=== PATIENT | male | born 1945 | race Caucasian/White ===

== ENCOUNTER 2016-10-24 09:10 | Inpatient (IN) ==
[2016-10-24 09:47] LABS: Basophils % 0.2 % (0.0-0.8); Eosinophils # 0.1 10*3/uL (0.0-0.87); Eosinophils % 1.4 % (0.00-10.9); Hematocrit 19.7 VOL% (42.0-52.0); Immature Granulocytes % 0.6 %; Immature Granulocytes Absolute 0.03 #; Lymphocytes # 1.2 10*3/uL (1.4-4.0); Lymphocytes % 24.7 % (21.2-54.2); Mean Corpuscular HGB Conc 32.5 GM/DL (32-36); Mean Corpuscular Hemoglobin 29 PG (27-34); Mean Corpuscular Volume 88.7 FL (87-102); Mean Platelet Volume 9.6 FL (9.6-12.0); Monocytes # 0.4 10*3/uL (0.11-0.8); Monocytes % 8.6 % (1.7-12.7); NRBC # 0.02 10*3/uL; Neutrophils # 3.2 10*3/uL (1.4-7.4); Neutrophils % 64.5 % (38.7-73.9); Platelet Count 140 T/CUMM (130-400); Red Blood Count 2.22 MC/CUMM (3.8-5.5); Red Cell Distribution Width 13.2 % (9.3-17.3); White Blood Count 4.9 T/CUMM (4-12)
[2016-10-24 09:51] LABS: Hemoglobin 6.4 GM/DL (14.0-18.0)
[2016-10-24 09:56] LABS: INR 1.1; PT Patient Result 11.7 SECS; Partial Thromboplastin Time 22.6 SECS (0-40)
--- NOTE | 2016-10-24 10:01 | XRay Report ---
Exam: XR abdomen 2V Date: 10/24/2016 9:29 AM Indication: Abdominal pain Comparison: None Technical: Supine and erect abdomen Findings: Previous cardiac pacing device with atrial ventricular leads. Lung bases are clear. The liver and spleen shadow are demonstrated there appears be mild prominence of the spleen. The renal shadows are not well seen. Moderate fecal debris in the rectosigmoid colon and right colon. Degenerative change present thoracolumbar spine. Some calcifications are present in the upper abdomen that could be within the region of the adrenal glands or pancreas not otherwise clarified. Vascular plaque in aorta iliac vessels. Impression: 1. Mild constipation 2. Amorphous calcifications could be within the adrenal gland or pancreas not otherwise clarified 3. Vascular calcinosis. 4. Previous cardiac pacing device. If additional imaging is warranted CT of the abdomen pelvis may be beneficial PROCEDURE INTERPRETED AT [facility] DEPARTMENT OF RADIOLOGY Final Report Signed by: Dr. Tarik Stark
--- NOTE | 2016-10-24 10:02 | XRay Report ---
Exam: XR chest 2V Date: 10/24/2016 9:29 AM Indication: Shortness of breath Comparison: 09/26/2015 Technical: PA lateral Findings: Cardiac pacing device and placement left-sided approach with atrial ventricular leads. Previous cervical fusion. ASVD is present. No obvious infiltrate. The mediastinum is otherwise intact. Anterolateral marginal osteophytes are present. Impression: 1. Cardiomegaly without decompensation 2. Stable position of the cardiac pacing device 3. Previous cervical fusion 4. Degenerative spondylosis change thoracic spine 5. No acute cardiopulmonary pathology. PROCEDURE INTERPRETED AT [facility] DEPARTMENT OF RADIOLOGY Final Report Signed by: Dr. Tarik Stark
[2016-10-24 10:18] LABS: Albumin 3.5 G/DL (3.4-5.0); Bilirubin,Total 0.4 MG/DL (0.2-1.0); Calcium 8.6 MG/DL (8.5-10.1); Magnesium 2.2 MG/DL (1.8-2.4); Osmolality,Calculated 290.5 MOS/KG (273-304); Potassium 4.6 MMOL/L (3.5-5.1); Total Protein 6.8 G/DL (6.4-8.3)
--- NOTE | 2016-10-24 10:39 | Emergency Department Note ---
Alina Ratliff Rolonda, am scribing for, and in the presence of, Usman White MD 10: 31. Cindy Ratliff James D, MD, personally performed the services described in this documentation, ascribed by Maura Fuller in my presence, and it is both accurate and complete . Arrival - Arrival Chief Complaint: GI Bleed/Rectal Stated Complaint: Dr. Nguyen sent over ED Nursing Triage Note: Pt c/o dark red blood in his stool with some abd discomfort and dizziness x [address] Nguyen's office. Mode of Arrival: Ambulatory Limitations: No Limitations Source: Patient, Old Records Reviewed, RN Notes Reviewed - History of Present Illness HPI Narrative: Pt is a 71 y/o male who was transferred from Dr. Nguyen presents to the ED with c/o of dark red blood in his stool with an onset of x1 week. He has a PMHx of problems. Pt has associated sxs of abdominal pain and dizziness. Pt denies taking any medication to relieve sxs and denies vomiting and abdominal pain but confirms nausea. No other pain in ED. Onset (ago): week(s) Consistency: constant Severity: moderate Severity scale (1-10): 4 Allergies/Adverse Reactions: Allergies Allergy/AdvReac Type Severity Reaction Status Date / Time Streptomycin Allergy Severe RASH Verified 09/25/15 11:00 codeine Allergy Nausea Verified 10/24/16 09:14 Home Medications: Home Medications Medication Instructions Recorded Confirmed Type Duloxetine HCl [Cymbalta] 60 mg PO DAILY 09/11/15 10/24/16 History Metoprolol Tartrate Tab [Lopressor 50 mg PO BID 09/11/15 10/24/16 History Tab] Canagliflozin [Invokana] 300 mg PO DAILY 10/24/16 10/24/16 History Hydrocodone/Acetaminophen 1 each PO BID PRN 10/24/16 10/24/16 History [Hydrocodon-Acetaminophen 5-325] Insulin Degludec [Tresiba 78 unit SUBCUT DAILY 10/24/16 10/24/16 History Flextouch U-100] Lisinopril 20 mg PO DAILY 10/24/16 10/24/16 History [place]-3/Dha/Epa/Fish Oil [[place]-3 1,000 mg PO TID 10/24/16 10/24/16 History Fish Oil 1,000 mg Sfgl] sitaGLIPtin [Januvia] 100 mg PO DAILY 10/24/16 10/24/16 History Review of System - Review of System 12 point system: reviewed and no additional remarkable complaints except as stated - Review of System Constitutional: Absent: chills Head/Ears/Nose/Throat: Absent: earache, epistaxis Respiratory: Absent: cough, respiratory distress Cardiovascular: Absent: chest pain Gastrointestinal: Present: abdominal pain, nausea. Absent: vomiting Genitourinary male: Present: other (blood in stool) Musculoskeletal: Absent: arm pain, back pain, neck pain Skin: Absent: rash Neurological: Present: vertigo. Absent: headache Medical,Surgical,& Family Hx - Medical History Cardio: History of: Hypertension Psychological: History of: Depression Endocrine: History of: Diabetes Mellitus (NIDDM), Dyslipidemia Respiratory: History of: Respiratory Problems (obstructive sleep apnea and admits noncompliance with CPAP) Genitourinary: History of: Problems Musculoskeletal: History of: Musculoskeletal Problems (arthritis) - Surgical History Abdominal Surgeries: Surgical HX of: Appendectomy Orthopedic Surgeries: Surgical HX of;: Orthopedic Surgery (shoulder surgery, foot surgery, knee surgery), Spinal Surgery (cervical disc disease) - Family History Family History: Reports;: Family Cancer (father of some sort of malignancy. ) Denies;: Family Heart Disease - Social History Smoking Status: Current some day smoker Exam Vital Signs: Vital Signs Temperature 97.0 F L 10/24/16 09:31 Pulse Rate 68 10/24/16 09:31 Respiratory Rate 16 10/24/16 09:31 Blood Pressure 126/41 10/24/16 09:31 O2 Sat by Pulse Oximetry 99 10/24/16 09:12 GENERAL: This is a well-nourished well-developed pale white male in no apparent distress. VITAL SIGNS: Reviewed HEENT: Head is atraumatic and normocephalic. Pupils are equal round react to light. Extraocular movements are intact. Conjunctiva are pale oropharynx is benign with moist mucous membranes. NECK: Neck is soft and supple without tenderness. There are no masses. There is no lymphadenopathy. LUNGS: Lungs are clear to auscultation. Chest rises symmetrically. There is no chest wall tenderness. CV: Heart is regular rate and rhythm without murmurs rubs or gallops. ABDOMEN: Abdomen is soft, nontender to palpation. There are no abdominal abnormal masses palpated. There is no organomegaly. Bowel sounds are present and active. Rectal: Maroon colored stool present in vault. Good rectal tone, no masses. SKIN: Skin is warm and dry. No rash. Pallor EXTREMITIES: Patient has full range of motion without tenderness. There is no pedal edema. NEUROLOGIC: Awake alert and oriented 4. Cranial nerves II through XII are grossly intact. Motor is 5 over 5 in all extremities bilaterally. Course - Consultations Consultation #1: Discussed with hospitalist. Patient will be admitted to their service. Time: 10:38 Results - Labs CBC & BMP: 10/24/16 09:35 10/24/16 09:35 Lab Results: I have reviewed the patients labs - Diagnostic Findings Procedure: Abdominal x-ray: image reviewed by me (Nonspecific gas pattern, no free air, gas in the rectum.), Chest x-ray: image reviewed by me (No cardiomegaly, pacemaker in place with leads in position.) Disposition Clinical Impression: GI bleed, Acute blood loss anemia Case discussed with: patient, patient's family Disposition: Still a Patient Condition: Stable Time of Disposition: 10:41
[2016-10-24] MEDS ORDERED: ACETAMINOPHEN 325 MG TABLET PO PRN (11:43)
[2016-10-24] MEDS ORDERED: ONDANSETRON 4 MG/2 ML VIAL IV PRN (11:43)
[2016-10-24] MEDS ORDERED: guaiFENesin/DM ER 600-30 MG TABLET PO PRN (11:43)
[2016-10-24] MEDS ORDERED: MORPHINE 2 MG/1 ML SYRINGE IV PRN (11:43)
[2016-10-24] MEDS ORDERED: NICOTINE 21 MG/24 HR PATCH TRANSDERM PRN (11:43)
[2016-10-24] MEDS ORDERED: diphenhydrAMINE CAP 25 MG CAPSULE PO PRN (11:43)
[2016-10-24] MEDS ORDERED: PROMETHAZINE 25 MG/1 ML VIAL IM PRN (11:43)
[2016-10-24] MEDS ORDERED: SODIUM CHLORIDE 0.9% 250 ML IV PRN (11:47)
[2016-10-24] MEDS ORDERED: DEXTROSE 50% 25 GM/50 ML VIAL IV PRN (11:49)
[2016-10-24] MEDS ORDERED: GLUCAGON 1 MG VIAL IM PRN (11:49)
--- NOTE | 2016-10-24 11:51 | Hospitalist History & Physical ---
Assessment and Plan - Time spent with patient Time spent with patient: Greater than 30 minutes (1) Acute renal failure Status: Acute Assessment and plan: 71-year-old white male with history of diabetes, hypertension, depression, chronic neck pain admitted by the hospitalist service with GI bleed. Patient will be admitted to the CCU for observation at least overnight by Dr. Ramires. Patient will be given 2 units of blood and consult Dr. Blackwell from gastroenterology for evaluation. Patient will be given IV fluids for his acute renal failure. His last reported creatinine was normal. Will request records from Dr. Cates's office on patient's last scope done in June. Patient's diabetes medications will be held for his hospital stay. He will be placed on sliding scale insulin and blood sugars monitored. Patient has been out of his blood pressure medicine for 2 days and his blood pressures are normal at this time. We will continue to monitor and will add blood pressure medicines back once needed. Dr. Ramires will see and examine patient and further recommendations to follow. Current Visit: Yes (2) Diabetes mellitus Status: Chronic Current Visit: No Qualifiers: Diabetes mellitus type: type 2 (3) Essential hypertension Status: Chronic Current Visit: No (4) Obesity (BMI 30-39.9) Status: Chronic Current Visit: No (5) GI bleed Status: Acute Current Visit: Yes (6) Acute blood loss anemia Status: Acute Current Visit: Yes History of Present Illness Chief complaint: Dark tarry stools History of present illness: Mr. Davis is a 71 year old white male with history of diabetes, hypertension , chronic neck pain, and depression presenting to the ED with a one-week history of dark tarry stools. Patient states the tarry stool started about a week ago and he has 2-3 per day. Patient denies headache, chest pain, shortness of breath, abdominal pain. He admits to having dizziness with ambulation and lower extremity edema. Patient went to see his family physician Dr. Mendoza this morning who sent him to the ED. Patient also states he has been out of his blood pressure medicines for 2 days with a recorded blood pressure in the ED upon exam of 118/63. Patient's H&H is 6.4/19.7 with normal white count and normal platelets. His creatinine is elevated at 1.6, blood sugars 197 , remainder of his chemistries are normal. Patient's coags are within normal limits. Upon exam patient is pale with skin dry, he is not hypotensive or tachycardic at this time and he has no active rectal bleeding. Patient states he had a scope done by Dr. Cates at [place] in June that showed internal hemorrhoids at that time. Patient does have a family history of colon cancer. Patient's case was discussed with ED physician Dr. Whiet and admitting hospitalist Dr. Ramires, and it was agreed patient would be admitted for further evaluation and treatment. Patient's medicines have been reconciled upon admission and patient is a full code. Home Medications Medication Instructions Recorded Confirmed Type Duloxetine HCl [Cymbalta] 60 mg PO DAILY 09/11/15 10/24/16 History Metoprolol Tartrate Tab [Lopressor 50 mg PO BID 09/11/15 10/24/16 History Tab] Canagliflozin [Invokana] 300 mg PO DAILY 10/24/16 10/24/16 History Hydrocodone/Acetaminophen 1 each PO BID PRN 10/24/16 10/24/16 History [Hydrocodon-Acetaminophen 5-325] Insulin Degludec [Tresiba 78 unit SUBCUT DAILY 10/24/16 10/24/16 History Flextouch U-100] Lisinopril 20 mg PO DAILY 10/24/16 10/24/16 History [place]-3/Dha/Epa/Fish Oil [[place]-3 1,000 mg PO TID 10/24/16 10/24/16 History Fish Oil 1,000 mg Sfgl] sitaGLIPtin [Januvia] 100 mg PO DAILY 10/24/16 10/24/16 History Allergies Allergy/AdvReac Type Severity Reaction Status Date / Time Streptomycin Allergy Severe RASH Verified 09/25/15 11:00 codeine Allergy Nausea Verified 10/24/16 09:14 Medical,Surgical,& Family Hx - Medical History Cardio: History of: Hypertension Psychological: History of: Depression Endocrine: History of: Diabetes Mellitus (NIDDM), Dyslipidemia Respiratory: History of: Respiratory Problems (obstructive sleep apnea and admits noncompliance with CPAP) Genitourinary: History of: Problems Musculoskeletal: History of: Musculoskeletal Problems (arthritis) - Surgical History Abdominal Surgeries: Surgical HX of: Appendectomy Orthopedic Surgeries: Surgical HX of;: Orthopedic Surgery (shoulder surgery, foot surgery, knee surgery), Spinal Surgery (cervical disc disease) - Family History Family History: Reports;: Family Cancer (father of some sort of malignancy. ) Denies;: Family Heart Disease - Social History Smoking Status: Current some day smoker Have you smoked in the last 12 months: Yes Frequency of Alcohol Use: None Type of Drug Use: None Marital Status: Lives With:: Spouse Functional capacity: independent ambulation Review of systems: A complete 10 system review of systems was obtained and pertinent positives and negatives per HPI Exam - Constitutional Vitals: Period Temp Pulse Resp BP Sys/[place] Pulse Ox Last 24 Hr 97.0 F-97.0 F 68-68 16-16 126-126/41-41 99 Exam: Constitutional System: No distress. No tremulousness. Head: Normocephalic, atraumatic. Ears, Nose and Throat System: No evidence of Otitis or Mastoiditis. No epistaxis or discharge Eyes System: Pupils equal, round, and reactive. Extraocular muscles intact. Mucous membranes pale Neck: Supple, without adenopathy, No jugular venous distention. No thyromegaly, neck mass, or prior surgery apparent. Respiratory System: Chest clear to auscultation. Cardiovascular System: Heart with regular rate and rhythm. No murmur. GI System: Abdomen soft, nontender. Normo active bowel sounds present. Musculoskeletal System: limbs with 1+ pedal edema. Diminished distal pulses. Neurological System: No discernable sensory deficit. No aphasia Psychiatric System: Conversation is rational Results - Labs CBC & BMP: 10/24/16 09:35 10/24/16 09:35 Lab Results: I have reviewed the past 24 hour labs - EKG EKG results: sinus rhythm - Diagnostic Findings Procedure: Abdominal x-ray: report reviewed by me (Date mild constipation, amorphous calculus calcifications within the adrenal gland or pancreas not otherwise clarified, vascular calcinosis, previous cardiac pacing device), Chest x-ray: report reviewed by me (Cardiomegaly without decompensation, stable cardiac pacing device, previous cervical fusion, degenerative spondylosis change in the thoracic spine.)
[2016-10-24 12:01] LABS: Hematocrit 19.4 VOL% (42.0-52.0)
[2016-10-24] MEDS: PANTOPRAZOLE 40 MG VIAL IV SCH ×2 (12:02→20:23)
[2016-10-24] MEDS: SODIUM CHLORIDE 0.9% 1,000 ML IV SCH ×2 (12:02→23:47)
[2016-10-24] MEDS: DULoxetine 30 MG CAPSULE PO SCH (12:05)
[2016-10-24 12:07] LABS: Hemoglobin 6.4 GM/DL (14.0-18.0)
--- NOTE | 2016-10-24 12:10 | Gastrointestinal Consult Note ---
Assessment and Plan (1) GI bleed Status: Acute Assessment and plan: 10/24-1 week history of dark red blood with clots with daily bowel movements without associated symptoms. 3 day history of dizziness and shortness of breath. Findings at PCP visit of anemia. Most recent colonoscopy at [place] 3 months prior with only findings of internal hemorrhoids. Will request these records. Clear liquid diet. Monitor serial H&H and transfuse as needed. Plan an addendum followed by Dr. Blackwell. Current Visit: Yes History of Present Illness Chief complaint: Rectal bleeding History of present illness: Mr. Davis is a 71 year old male who was admitted to the hospital following clinic visit with Dr. Nguyen for complaints of rectal bleeding, dizziness and shortness of breath. Patient states that approximately 1 week ago he began having some dark red rectal bleeding with clots with his daily bowel movements. He states that his bowel movements have been normal at approximately 1-2 per day with no changes noted in the stool. He states that every time he would have a bowel movement he would pass a moderate amount of blood along with this but denies any bleeding in between bowel movements. He denies any abdominal pain or cramping associated with this. He states that approximately 3 days ago he began not feeling well and complaints of dizziness and some shortness of breath. He presented to see his PCP today and upon exam was found to have anemia and was referred to our ER for further evaluation. Patient states that he has not had GI bleeding in the past. He states that he most recently had a colonoscopy done at [place] by Dr. Cates and does not recall any abnormal findings other than internal hemorrhoids. He denies any recent episodes of constipation or obstipation. He denies any weight loss, nausea or vomiting. Denies any fever chills. Denies a prior history of anemia or blood transfusions in the past. Denies taking any anticoagulants or NSAIDs denies any upper GI symptoms as well. He has a prior history of diabetes, hypertension , chronic neck pain, and depression. He has a family history of colon cancer in his father in the past. On admission, findings of H&H of 6.4/19.4. Normal MCV at 88.7 BUN/creatinine ratio 23. Creatinine is elevated at 1.6 with normal baseline reported. Abdominal x-ray shows no acute findings. Home Medications Medication Instructions Recorded Confirmed Type Duloxetine HCl [Cymbalta] 60 mg PO DAILY 09/11/15 10/24/16 History Metoprolol Tartrate Tab [Lopressor 50 mg PO BID 09/11/15 10/24/16 History Tab] Canagliflozin [Invokana] 300 mg PO DAILY 10/24/16 10/24/16 History Hydrocodone/Acetaminophen 1 each PO BID PRN 10/24/16 10/24/16 History [Hydrocodon-Acetaminophen 5-325] Insulin Degludec [Tresiba 78 unit SUBCUT DAILY 10/24/16 10/24/16 History Flextouch U-100] Lisinopril 20 mg PO DAILY 10/24/16 10/24/16 History [place]-3/Dha/Epa/Fish Oil [[place]-3 1,000 mg PO TID 10/24/16 10/24/16 History Fish Oil 1,000 mg Sfgl] sitaGLIPtin [Januvia] 100 mg PO DAILY 10/24/16 10/24/16 History Allergies Allergy/AdvReac Type Severity Reaction Status Date / Time Streptomycin Allergy Severe RASH Verified 09/25/15 11:00 codeine Allergy Nausea Verified 10/24/16 09:14 Medical,Surgical,& Family Hx - Medical History Cardio: History of: Hypertension Psychological: History of: Depression Endocrine: History of: Diabetes Mellitus (NIDDM), Dyslipidemia Respiratory: History of: Respiratory Problems (obstructive sleep apnea and admits noncompliance with CPAP) Genitourinary: History of: Problems Musculoskeletal: History of: Musculoskeletal Problems (arthritis) - Surgical History Abdominal Surgeries: Surgical HX of: Appendectomy Orthopedic Surgeries: Surgical HX of;: Orthopedic Surgery (shoulder surgery, foot surgery, knee surgery), Spinal Surgery (cervical disc disease) - Family History Family History: Reports;: Family Cancer (father of some sort of malignancy. ) Denies;: Family Heart Disease - Social History Smoking Status: Current some day smoker Frequency of Alcohol Use: None Type of Drug Use: None 12 point system: reviewed and no additional remarkable complaints except as stated - Constitutional Constitutional: Present: as per HPI, fatigue - EENT Eyes: Present: as per HPI Ears: Present: as per HPI Nose, mouth and throat: Present: as per HPI - Cardiovascular Cardiovascular: Present: as per HPI - Respiratory Respiratory: Present: as per HPI - Gastrointestinal Gastrointestinal: Present: as per HPI, hematochezia - Genitourinary Genitourinary: Present: as per HPI - Musculoskeletal Musculoskeletal: Present: as per HPI - Neurological Neurological: Present: as per HPI, dizziness - Psychiatric Psychiatric: Present: as per HPI - Endocrine Endocrine: Present: as per HPI - Hematologic/Lymphatic Hematologic/Lymphatic: Present: as per HPI Exam - Constitutional Vitals: Period Temp Pulse Resp BP Sys/[place] Pulse Ox Last 24 Hr 97.0 F-97.0 F 68-68 16-16 126-126/41-41 99 General appearance: normal weight, no acute distress - Head Head exam: Present: normal inspection, normocephalic - Eye Eye exam: Present: other (Lids and conjunctive are unremarkable). Absent: scleral icterus - ENT ENT exam: Present: normal exam, normal oropharynx - Neck Neck exam: Present: normal inspection - Respiratory Respiratory exam: Present: clear to auscultation bilaterally. Absent: rales, rhonchi, wheezes - Cardiovascular Cardiovascular exam: Present: regular rate and rhythm. Absent: diastolic murmur , JVD, systolic murmur - GI/Abdominal GI/Abdominal exam: Present: normal bowel sounds, soft. Absent: ascites, distended, mass, organomegaly, tenderness - Extremities Exam Extremities exam: Present: normal inspection, full ROM - Back Exam Back exam: Present: normal inspection - Neurological Exam Neurological exam: Present: alert, oriented X3 - Psychiatric Psychiatric exam: Present: normal affect, normal mood - Skin Skin exam: Present: normal color, warm, dry Results - Labs CBC & BMP: 10/24/16 09:35 10/24/16 09:35 Lab Results: I have reviewed the past 24 hour labs - Diagnostic Findings Procedure: Abdominal x-ray: report reviewed by me Quality Measures - VTE Contraindication to Pharmacological VTE Prophylaxis: High Risk of Bleeding
--- NOTE | 2016-10-24 12:22 | EKG Report ---
Stationary ECG Study [facility] Test Date: 10/24/2016 12:22:43 PM Pat Name: TENISHA AMADOR Department: Room: 123 Gender: M Global Chief Creative Officer: NGUYỄN : 1945 Requested by: Nancy Larson Order Number: [id number] Reading MD: SAMARIA TURNER Intervals [place] Rate: 60 P: 100 MI: 184 QRS: -72 QRSD: 166 T: 66 QT: 476 QTc: 476 Interpretive Statements ELECTRONIC ATRIAL PACEMAKER ELECTRONIC VENTRICULAR PACEMAKER ABNORMAL RHYTHM ECG Electronically Signed On 10-24-16 13:08:57 CDT by SAMARIA TURNER [id number]
[2016-10-24] MEDS: INSULIN LISPRO 100 UNIT/ML SUBCUT SCH ×2 (17:05→20:23)
[2016-10-24 19:43] LABS: Hematocrit 21.2 VOL% (42.0-52.0); Hemoglobin 6.9 GM/DL (14.0-18.0)
[2016-10-24] MEDS: ACETAMINOPHEN 325 MG TABLET PO PRN (20:24)
[2016-10-25] MEDS: SODIUM CHLORIDE 0.9% 1,000 ML IV SCH (03:29)
[2016-10-25 05:17] LABS: Eosinophils % 0.9 % (0.00-10.9); Hematocrit 19.8 VOL% (42.0-52.0); Hemoglobin 6.6 GM/DL (14.0-18.0); Immature Granulocytes % 0.4 %; Immature Granulocytes Absolute 0.01 #; Lymphocytes # 0.6 10*3/uL (1.4-4.0); Lymphocytes % 28.2 % (21.2-54.2); Mean Corpuscular HGB Conc 33.3 GM/DL (32-36); Mean Corpuscular Hemoglobin 29 PG (27-34); Mean Corpuscular Volume 87.6 FL (87-102); Mean Platelet Volume 10.9 FL (9.6-12.0); Monocytes # 0.2 10*3/uL (0.11-0.8); Monocytes % 8.4 % (1.7-12.7); Neutrophils # 1.4 10*3/uL (1.4-7.4); Neutrophils % 62.1 % (38.7-73.9); Platelet Count 52 T/CUMM (130-400); Red Blood Count 2.26 MC/CUMM (3.8-5.5); Red Cell Distribution Width 13.3 % (9.3-17.3); White Blood Count 2.3 T/CUMM (4-12)
[2016-10-25 05:25] LABS: INR 1.1; PT Patient Result 12.1 SECS; Partial Thromboplastin Time < 21.0 SECS (0-40)
[2016-10-25 05:55] LABS: Albumin 2.9 G/DL (3.4-5.0); Bilirubin,Total 1.1 MG/DL (0.2-1.0); Calcium 7.7 MG/DL (8.5-10.1); Magnesium 2.1 MG/DL (1.8-2.4); Osmolality,Calculated 284.3 MOS/KG (273-304); Potassium 4.2 MMOL/L (3.5-5.1); Total Protein 5.9 G/DL (6.4-8.3)
[2016-10-25 05:57] LABS: Band Neutrophils 1 % (0-10); Eosinophils 1 % (0-10); Hypochromasia 1+; Lymphocytes 27 % (20-55); Nucleated Red Blood Cells 1 (0-5); Ovalocytes Slight; Segmented Neutrophils 66 % (50-85); Total Cells Counted 100
[2016-10-25 05:58] LABS: Platelet Estimate Decreased
--- NOTE | 2016-10-25 07:44 | EKG Report ---
Stationary ECG Study [facility] Test Date: 10/25/2016 7:45:14 AM Pat Name: TENISHA AMADOR Department: Room: 123 Gender: M Epic [place] Specialist: ANGELES : 1945 Requested by: Nancy Larson Order Number: [id number] Reading MD: SUKHWINDER XIONG Intervals [place] Rate: 62 P: 75 WA: 177 QRS: -77 QRSD: 182 T: 88 QT: 508 QTc: 514 Interpretive Statements ELECTRONIC VENTRICULAR PACEMAKER (APPEARS TO BE TRACKING SINUS RHYTHM) @62BPM Electronically Signed On 10-25-16 10:06:05 CDT by SUKHWINDER XIONG [email or web address]
[2016-10-25] MEDS: INSULIN LISPRO 100 UNIT/ML SUBCUT SCH ×4 (07:49→22:17)
[2016-10-25] MEDS ORDERED: FUROSEMIDE 40 MG/4 ML VIAL IV ONE (07:50)
[2016-10-25 08:05] LABS: Hematocrit 21.3 VOL% (42.0-52.0); Hemoglobin 7.1 GM/DL (14.0-18.0)
[2016-10-25] MEDS: PANTOPRAZOLE 40 MG VIAL IV SCH ×2 (08:33→22:19)
[2016-10-25] MEDS: DULoxetine 30 MG CAPSULE PO SCH (08:46)
--- NOTE | 2016-10-25 10:11 | Gastrointestinal Progress Note ---
Assessment and Plan (1) GI bleed Status: Acute Assessment and plan: 10/25-no further overt bleeding. Hemoglobin posttransfusion yesterday at 7.1. Receiving 2 more units of packed red blood cells. Continue to monitor H&H and transfuse as needed. Advance to full liquid diet. Plan an addendum follow Dr. Blackwell. 10/24-1 week history of dark red blood with clots with daily bowel movements without associated symptoms. 3 day history of dizziness and shortness of breath. Findings at PCP visit of anemia. Most recent colonoscopy at [place] 3 months prior with only findings of internal hemorrhoids. Will request these records. Clear liquid diet. Monitor serial H&H and transfuse as needed. Plan an addendum followed by Dr. Blackwell. Current Visit: Yes Gastroenterology - PN: Subj Interval history: CC: GI bleed Patient is awake and alert sitting up in bed with at bedside. He was just transferred to a regular room from ICU. He states he has not had any overt bleeding since admission. Denies any abdominal pain, nausea or vomiting. Hemoglobin is noted to be at 7.1 today following 2 units of packed red blood cells on yesterday. He is receiving 2 more units today. Abdomen soft, nontender. Will advance his diet today and see how he tolerates this. ROS: Denies shortness of breath or chest pain Exam (Progress Note) - Constitutional Vitals: Period Temp Pulse Resp BP Sys/[place] Pulse Ox Last 24 Hr 96.8 F-98.0 F 60-69 13-30 102-151/46-67 90-100 - Other Additional findings: General appearance: normal weight, no acute distress - Head Head exam: Present: normal inspection, normocephalic - Eye Eye exam: Present: other (Lids and conjunctive are unremarkable). Absent: scleral icterus - ENT ENT exam: Present: normal exam, normal oropharynx - Neck Neck exam: Present: normal inspection - Respiratory Respiratory exam: Present: clear to auscultation bilaterally. Absent: rales, rhonchi, wheezes - Cardiovascular Cardiovascular exam: Present: regular rate and rhythm. Absent: diastolic murmur , JVD, systolic murmur - GI/Abdominal GI/Abdominal exam: Present: normal bowel sounds, soft. Absent: ascites, distended, mass, organomegaly, tenderness - Extremities Exam Extremities exam: Present: normal inspection, full ROM - Back Exam Back exam: Present: normal inspection - Neurological Exam Neurological exam: Present: alert, oriented X3 - Psychiatric Psychiatric exam: Present: normal affect, normal mood - Skin Skin exam: Present: normal color, warm, dry Results - Labs CBC & BMP: 10/25/16 07:59 10/25/16 05:01 Lab Results: I have reviewed the past 24 hour labs
--- NOTE | 2016-10-25 11:43 | Hospitalist Progress Note ---
Assessment and Plan (1) Acute blood loss anemia Status: Acute Assessment and plan: GIB- no improvement in H&H with transfusion and today his platelets are also low. Transfuse PRBC and platelets. He is feeling better. Await GI recs. Yesterday DR Blackwell suggested he might have a diverticular bleed after reviewing the Cscope report from [facility]. pancytopenia- consult heme. DM- SSI obesity HTN- controlled, holding meds for now. dispo- to floor today. Current Visit: Yes (2) Diabetes mellitus Status: Chronic Current Visit: No Qualifiers: Diabetes mellitus type: type 2 (3) Essential hypertension Status: Chronic Current Visit: No (4) Obesity (BMI 30-39.9) Status: Chronic Current Visit: No (5) Smoker Status: Chronic Current Visit: No (6) Obstructive sleep apnea Status: Chronic Current Visit: No Hospitalist: Subjective Interval history: Mr Davis is feeling well this morning. He has not seen anymore bleeding. When Dr Blackwell got his history he said his stool had been dark red or maroon, not black or tarry and so Dr Blackwell suspects a lower GIB. Exam - Constitutional Vitals: Period Temp Pulse Resp BP Sys/[place] Pulse Ox Last 24 Hr 96.8 F-98.0 F 60-69 13-30 102-151/46-67 90-100 General appearance: no acute distress, over weight - Eye Eye exam: Present: EOMI. Absent: scleral icterus - Respiratory Respiratory exam: Present: clear to auscultation bilaterally - Cardiovascular Cardiovascular exam: Present: regular rate and rhythm - GI/Abdominal GI/Abdominal exam: Present: normal bowel sounds, soft. Absent: tenderness - Extremities Exam Extremities exam: Absent: edema Results - Labs CBC & BMP: 10/25/16 07:59 10/25/16 05:01 Lab Results: I have reviewed the past 24 hour labs Quality Measures - VTE Contraindication to Pharmacological VTE Prophylaxis: High Risk of Bleeding
[2016-10-25] MEDS: ACETAMINOPHEN 325 MG TABLET PO PRN (14:10)
--- NOTE | 2016-10-25 17:46 | Hematology Consult ---
History of Present Illness - Consult Narrative History of present illness: Mr. Davis is a 71 year old male long-standing thrombocytopenia who has seen in clinic and following with observation only. He was admitted now with GI bleed. GI is evaluating him and plans to do endoscopy. He has required 2 units of blood and is receiving 2 more units today due to persistent bleeding. His CBC today made a dramatic change from yesterday. This was not repeated. Hematology has been asked to see him for our opinion. There is mention of platelet clumping on his CBC. This could very well explain his low platelet count. At this point I will hold off on any further opinion until his CBC is repeated after his transfusion today. I will recheck in the morning to see what his follow-up CBC shows. CC: Radha Ramires MD - Home Medications and Allergies Home Medications: Home Medications Medication Instructions Recorded Confirmed Type Duloxetine HCl [Cymbalta] 60 mg PO DAILY 09/11/15 10/24/16 History Metoprolol Tartrate Tab [Lopressor 50 mg PO BID 09/11/15 10/24/16 History Tab] Canagliflozin [Invokana] 300 mg PO DAILY 10/24/16 10/24/16 History Hydrocodone/Acetaminophen 1 each PO BID PRN 10/24/16 10/24/16 History [Hydrocodon-Acetaminophen 5-325] Insulin Degludec [Tresiba 78 unit SUBCUT DAILY 10/24/16 10/24/16 History Flextouch U-100] Lisinopril 20 mg PO DAILY 10/24/16 10/24/16 History [place]-3/Dha/Epa/Fish Oil [[place]-3 1,000 mg PO TID 10/24/16 10/24/16 History Fish Oil 1,000 mg Sfgl] sitaGLIPtin [Januvia] 100 mg PO DAILY 10/24/16 10/24/16 History Allergies/Adverse Reactions: Allergies Allergy/AdvReac Type Severity Reaction Status Date / Time Streptomycin Allergy Severe RASH Verified 09/25/15 11:00 codeine Allergy Nausea Verified 10/24/16 09:14 Medical,Surgical,& Family Hx - Medical History Cardio: History of: Hypertension, Pacemaker Psychological: History of: Depression HEENT: History of: Ear Problem (Bilateral hearing aids), Eye Problem (Glasses) Endocrine: History of: Diabetes Mellitus (IDDM), Diabetes Mellitus (NIDDM), Dyslipidemia Respiratory: History of: Obstructive Sleep Apnea (CPAP at night), Respiratory Problems (obstructive sleep apnea and admits noncompliance with CPAP) Genitourinary: History of: Problems Musculoskeletal: History of: Musculoskeletal Problems (arthritis) - Surgical History HEENT Surgeries: Patient denies: Tonsilectomy & Adenoidectomy Abdominal Surgeries: Surgical HX of: Appendectomy Orthopedic Surgeries: Surgical HX of;: Orthopedic Surgery (shoulder surgery, foot surgery, knee surgery), Spinal Surgery (cervical disc disease) - Family History Family History: Reports;: Family Cancer (father of some sort of malignancy. ) Denies;: Family Heart Disease - Social History Smoking Status: Current some day smoker Frequency of Alcohol Use: None Type of Drug Use: None Exam - Constitutional Vitals: Period Temp Pulse Resp BP Sys/[place] Pulse Ox Last 24 Hr 96.8 F-98.2 F 60-78 13-30 96-151/46-83 90-100 Results - Labs CBC & BMP: 10/25/16 07:59 10/25/16 05:01 Quality Measures - VTE Contraindication to Pharmacological VTE Prophylaxis: High Risk of Bleeding
[2016-10-25] MEDS ORDERED: POLYETHYLENE GLYCOL POWDER 255 GM BOTTLE PO ONE (18:00)
[2016-10-26 00:14] LABS: Hematocrit 26.8 VOL% (42.0-52.0)
[2016-10-26 05:14] LABS: Basophils % 0.8 % (0.0-0.8); Eosinophils # 0.1 10*3/uL (0.0-0.87); Eosinophils % 2.9 % (0.00-10.9); Hemoglobin 8.9 GM/DL (14.0-18.0); Immature Granulocytes % 0.4 %; Immature Granulocytes Absolute 0.01 #; Lymphocytes # 0.7 10*3/uL (1.4-4.0); Lymphocytes % 29.7 % (21.2-54.2); Mean Corpuscular Hemoglobin 28 PG (27-34); Mean Corpuscular Volume 85.7 FL (87-102); Mean Platelet Volume 9.4 FL (9.6-12.0); Monocytes # 0.3 10*3/uL (0.11-0.8); Monocytes % 11.3 % (1.7-12.7); Neutrophils # 1.3 10*3/uL (1.4-7.4); Neutrophils % 54.9 % (38.7-73.9); Platelet Count 105 T/CUMM (130-400); Red Blood Count 3.15 MC/CUMM (3.8-5.5); Red Cell Distribution Width 13.8 % (9.3-17.3); White Blood Count 2.4 T/CUMM (4-12)
[2016-10-26 05:32] LABS: INR 1.1; PT Patient Result 12.2 SECS
[2016-10-26 05:44] LABS: Calcium 7.8 MG/DL (8.5-10.1); Osmolality,Calculated 283.1 MOS/KG (273-304); Potassium 3.5 MMOL/L (3.5-5.1)
[2016-10-26] MEDS ORDERED: MAGNESIUM CITRATE 300 ML BOTTLE PO ONE (06:00)
[2016-10-26] MEDS ORDERED: PROPOFOL 200 MG/20 ML VIAL IV ONE (06:30)
[2016-10-26] MEDS ORDERED: LIDOCAINE 100 MG/5 ML SYRINGE ONE (06:30)
[2016-10-26 07:03] LABS: Hematocrit 31.3 VOL% (42.0-52.0); Hemoglobin 10.4 GM/DL (14.0-18.0)
--- NOTE | 2016-10-26 08:15 | Hematology Consult ---
Assessment and Plan - Time spent with patient Time spent with patient: Greater than 30 minutes (1) Pancytopenia Status: Acute Current Visit: No (2) Acute blood loss anemia Status: Acute Current Visit: Yes (3) GI bleed Status: Acute Current Visit: Yes History of Present Illness - Consult Narrative History of present illness: Mr. Davis is a 71 year old male who has seen in the past for thrombocytopenia that appears stable for the last 2 years. He was admitted at this point for what looks like a GI bleed. He has been transfused 4 units of blood and 1 unit of platelets. His platelet count this morning is 105. He does have low-grade leukopenia. We do not see evidence of blast or dysplasia on his peripheral smear. His long-standing pancytopenia may be related to some low-grade myelodysplasia or splenomegaly. At this point in time his GI bleed is his biggest issue. I do not have a strong reason for a bone marrow biopsy at this time but could consider that down the road if he remains pancytopenic after his current GI bleed resolves. CC: Donna Cook MD - Home Medications and Allergies Home Medications: Home Medications Medication Instructions Recorded Confirmed Type Duloxetine HCl [Cymbalta] 60 mg PO DAILY 09/11/15 10/24/16 History Metoprolol Tartrate Tab [Lopressor 50 mg PO BID 09/11/15 10/24/16 History Tab] Canagliflozin [Invokana] 300 mg PO DAILY 10/24/16 10/24/16 History Hydrocodone/Acetaminophen 1 each PO BID PRN 10/24/16 10/24/16 History [Hydrocodon-Acetaminophen 5-325] Insulin Degludec [Tresiba 78 unit SUBCUT DAILY 10/24/16 10/24/16 History Flextouch U-100] Lisinopril 20 mg PO DAILY 10/24/16 10/24/16 History [place]-3/Dha/Epa/Fish Oil [[place]-3 1,000 mg PO TID 10/24/16 10/24/16 History Fish Oil 1,000 mg Sfgl] sitaGLIPtin [Januvia] 100 mg PO DAILY 10/24/16 10/24/16 History Allergies/Adverse Reactions: Allergies Allergy/AdvReac Type Severity Reaction Status Date / Time Streptomycin Allergy Severe RASH Verified 09/25/15 11:00 codeine Allergy Nausea Verified 10/24/16 09:14 Medical,Surgical,& Family Hx - Medical History Cardio: History of: Hypertension, Pacemaker Psychological: History of: Depression HEENT: History of: Ear Problem (Bilateral hearing aids), Eye Problem (Glasses) Endocrine: History of: Diabetes Mellitus (IDDM), Diabetes Mellitus (NIDDM), Dyslipidemia Respiratory: History of: Obstructive Sleep Apnea (CPAP at night), Respiratory Problems (obstructive sleep apnea and admits noncompliance with CPAP) Genitourinary: History of: Problems Musculoskeletal: History of: Musculoskeletal Problems (arthritis) - Surgical History HEENT Surgeries: Patient denies: Tonsilectomy & Adenoidectomy Abdominal Surgeries: Surgical HX of: Appendectomy Orthopedic Surgeries: Surgical HX of;: Orthopedic Surgery (shoulder surgery, foot surgery, knee surgery), Spinal Surgery (cervical disc disease) - Family History Family History: Reports;: Family Cancer (father of some sort of malignancy. ) Denies;: Family Heart Disease - Social History Smoking Status: Current some day smoker Frequency of Alcohol Use: None Type of Drug Use: None 12 point system: reviewed and no additional remarkable complaints except as stated - Constitutional Constitutional: Present: fatigue Exam - Constitutional Vitals: Period Temp Pulse Resp BP Sys/[place] Pulse Ox Last 24 Hr 96.8 F-98.8 F 62-78 18-67 96-153/51-83 97-100 General appearance: normal weight, no acute distress - Head Head Exam: Present: normocephalic, atraumatic - Eye Eye Exam: Present: EOMI Pupils: Present: PERRL - ENT ENT exam: Present: normal exam, normal oropharynx - Neck Neck exam: Absent: lymphadenopathy, thyromegaly - Respiratory Respiratory exam: Present: CTAB. Absent: wheezes - Cardiovascular Cardiovascular exam: Present: RRR. Absent: JVD, systolic murmur - GI/Abdominal GI/Abdominal exam: Present: soft. Absent: ascites, distended, firm, mass - Neurological Exam Neurological exam: Present: alert, oriented X3 - Psychiatric Psychiatric exam: Present: normal affect, normal mood - Skin Skin exam: Present: warm, dry Results - Labs CBC & BMP: 10/26/16 06:56 10/26/16 04:36 Lab Results: I have reviewed the past 24 hour labs Quality Measures - VTE Contraindication to Pharmacological VTE Prophylaxis: High Risk of Bleeding
[2016-10-26] MEDS: INSULIN LISPRO 100 UNIT/ML SUBCUT SCH ×4 (09:01→22:10)
[2016-10-26] MEDS: DULoxetine 30 MG CAPSULE PO SCH (09:01)
[2016-10-26] MEDS: PANTOPRAZOLE 40 MG VIAL IV SCH ×2 (09:02→22:10)
--- NOTE | 2016-10-26 12:34 | History and Physical Update ---
History and Physical Update - History and Physical H&P was reviewed, the patient examined and there: are no changes in the patients condition since last H&P was completed. - Physical Exam Mental Status: alert and oriented Heart: regular rate and rhythm Lung: clear to auscultation Abdomen: within normal limits Vitals: within normal limits
[2016-10-26] MEDS ORDERED: SIMETHICONE DROPS 40 MG/0.6 ML 30 ML BOTTLE ONE (12:55)
--- NOTE | 2016-10-26 12:56 | Hospitalist Progress Note ---
Assessment and Plan (1) Diabetes mellitus Status: Chronic Assessment and plan: SSI Current Visit: No Qualifiers: Diabetes mellitus type: type 2 (2) Essential hypertension Status: Chronic Assessment and plan: Holding home meds Current Visit: No (3) Obstructive sleep apnea Status: Chronic Current Visit: No (4) Pancytopenia Status: Acute Assessment and plan: Anemia due to blood loss Thrombocytopenia is chronic, followed by hematology, improved with platelet transfusion Current Visit: No (5) GI bleed Status: Acute Assessment and plan: GI managing Colonoscopy today H/H stable Current Visit: Yes (6) Acute blood loss anemia Status: Acute Current Visit: Yes Hospitalist: Subjective Interval history: No acute events overnight. Underwent bowel prep overnight. Plan for colonoscopy today. Exam - Constitutional Vitals: Period Temp Pulse Resp BP Sys/[place] Pulse Ox Last 24 Hr 97.4 F-98.8 F 61-78 16-67 96-160/53-062 98-100 General appearance: over weight - Head Head exam: Present: normocephalic, atraumatic - Eye Eye exam: Present: EOMI Pupils: Present: DEE - ENT ENT exam: Present: normal exam - Neck Neck exam: Present: normal inspection - Respiratory Respiratory exam: Present: clear to auscultation bilaterally. Absent: rhonchi, wheezes - Cardiovascular Cardiovascular exam: Present: regular rate and rhythm - GI/Abdominal GI/Abdominal exam: Present: normal bowel sounds, soft. Absent: tenderness, rebound - Extremities Exam Extremities exam: Present: normal inspection - Back Exam Back exam: Present: normal inspection - Neurological Exam Neurological exam: Present: alert, oriented X3 - Psychiatric Psychiatric exam: Present: normal affect, normal mood - Skin Skin exam: Present: warm, intact Results - Labs CBC & BMP: 10/26/16 06:56 10/26/16 04:36 Quality Measures - VTE Contraindication to Pharmacological VTE Prophylaxis: High Risk of Bleeding
--- NOTE | 2016-10-26 13:24 | Operative Note ---
Date of procedure: 10/26/16 Pre-op diagnosis: Lower GI bleeding Procedure: Procedure note: Colonoscopy with snare polypectomy polyps and argon coagulation of right colon vascular malformations Physician: Dr. Moy Blackwell Brief clinical abstract: 71-year-old male was admitted with lower GI bleeding. He has required transfusion of 2 units packed red blood cells. He has bled sporadically for the last 4 or 5 days with dark red hematochezia and some bright red blood noted. Endoscopic findings: After informed consent was obtained, the patient was placed in the left lateral decubitus position. Digital rectal exam was performed with no palpable abnormalities felt. Pediatric videocolonoscope was inserted into the rectum and advanced to the cecum without difficulty. Retroflex view within the cecum was performed back to the level of the hepatic flexure. The endoscope was advanced back to the cecum. Terminal ileum was examined in the distal 8-10 cm with no abnormality seen. The endoscope was withdrawn back into the cecum and colonic mucosa carefully examined on withdrawal. There was a moderate sized dark red clot in the base of the cecum noted which I was able to suction and removed. No bright red blood was noted. In the proximal ascending colon there were 4 vascular malformations noted, each ranging in size from 7-10 mm diameter. These were coagulated with argon plasma coagulation device on right colon setting. We appeared to have good endoscopic results. 1 of these oozed some bright red blood with coagulation which stopped. Distal to this vascular pattern throughout the remainder the colon appeared normal. Bowel prep was of fairly good quality with some dark liquid watery stool in the left colon which we were mostly able to clear by suctioning. 2 approximately 5 mm polyps were noted in the mid to distal transverse colon and removed with snare using coagulation current. A moderate number of diverticuli were visualized in the descending and sigmoid colon. The endoscope was withdrawn in the rectum with retroflex view showing prominent vascularity in the distal 5 cm of the rectum with moderate sized hemorrhoids which could be varices. No bleeding stigmata were associated with these. The endoscope was removed and patient appeared to tolerate the procedure well. 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 Rectal varices Plan: Would observe another 48 hours to observe for signs of recurrent bleeding. F F F F Anesthesia: MAC Surgeon / Physician: Tarik Blackwell Estimated blood loss: minimal Specimens: other (Transverse colon polyps) Condition: stable Disposition: post procedure unit Results - Labs CBC & BMP: 10/26/16 06:56 10/26/16 04:36 Discharge Plan - Discharge Medications No Action Metoprolol Tartrate Tab [Lopressor Tab] 50 mg PO BID Duloxetine HCl [Cymbalta] 60 mg PO DAILY sitaGLIPtin [Januvia] 100 mg PO DAILY Canagliflozin [Invokana] 300 mg PO DAILY [place]-3/Dha/Epa/Fish Oil [[place]-3 Fish Oil 1,000 mg Sfgl] 1,000 mg PO TID Hydrocodone/Acetaminophen [Hydrocodon-Acetaminophen 5-325] 1 each PO BID PRN PRN Reason: Pain Lisinopril 20 mg PO DAILY Insulin Degludec [Tresiba Flextouch U-100] 78 unit SUBCUT DAILY - Follow Up or Referral - Forms/Instructions
--- NOTE | 2016-10-26 13:26 | Anesthesia Post-Op ---
Anesthesia Post OP - Post Ansesthetic Evaluation Patient seen in post op: Yes Resp: within normal limits CV: within normal limits Mental: within normal limits Temp: within normal limits [id number]: within normal limits Nausea and Vomiting: within normal limits Pain: within normal limits
[2016-10-26 15:27] LABS: Hematocrit 28.7 VOL% (42.0-52.0); Hemoglobin 9.6 GM/DL (14.0-18.0)
[2016-10-26 21:52] LABS: Hematocrit 27.4 VOL% (42.0-52.0); Hemoglobin 8.9 GM/DL (14.0-18.0)
[2016-10-27 06:36] LABS: Basophils % 0.7 % (0.0-0.8); Eosinophils # 0.1 10*3/uL (0.0-0.87); Eosinophils % 3.2 % (0.00-10.9); Hematocrit 26.7 VOL% (42.0-52.0); Hemoglobin 8.7 GM/DL (14.0-18.0); Immature Granulocytes % 0.4 %; Immature Granulocytes Absolute 0.01 #; Lymphocytes # 0.9 10*3/uL (1.4-4.0); Mean Corpuscular HGB Conc 32.6 GM/DL (32-36); Mean Corpuscular Hemoglobin 28 PG (27-34); Mean Corpuscular Volume 86.4 FL (87-102); Mean Platelet Volume 10.2 FL (9.6-12.0); Monocytes # 0.4 10*3/uL (0.11-0.8); Neutrophils # 1.4 10*3/uL (1.4-7.4); Neutrophils % 48.7 % (38.7-73.9); Platelet Count 107 T/CUMM (130-400); Red Blood Count 3.09 MC/CUMM (3.8-5.5); Red Cell Distribution Width 13.7 % (9.3-17.3); White Blood Count 2.8 T/CUMM (4-12)
[2016-10-27 06:44] LABS: INR 1.2; PT Patient Result 12.5 SECS
[2016-10-27 06:56] LABS: Hypochromasia 1+
[2016-10-27 06:57] LABS: Microcytosis Slight; Platelet Estimate Decreased
[2016-10-27 07:21] LABS: Hematocrit 25.5 VOL% (42.0-52.0); Hemoglobin 8.5 GM/DL (14.0-18.0)
[2016-10-27] MEDS: INSULIN LISPRO 100 UNIT/ML SUBCUT SCH ×5 (07:25→21:38)
[2016-10-27] MEDS: DULoxetine 30 MG CAPSULE PO SCH (08:59)
[2016-10-27] MEDS: PANTOPRAZOLE 40 MG VIAL IV SCH ×2 (09:00→21:39)
--- NOTE | 2016-10-27 12:30 | Pathology Report from [facility] ---
[facility] ACCESSION # : [id number] PATIENT NAME : Tenisha Davis ORDERING DR : JOLIE BARBOUR MD CLINICAL HX: GI Bleed POST-OP DX: Colon polyp transverse x 2 SPECIMEN INFO: Colon polyp transverse x 2 GROSS DESCRIPTION: Received in formalin labeled TENISHA DAVIS is a 0.6 x 0.4 cm aggregate of soft hemorrhagic material submitted in one cassette. DIAGNOSIS FOR TEINSHA DAVIS: TRANSVERSE COLON, BIOPSY: Mucosal ulceration with granulation tissue. COLLECTED DATE: 10/26/2016 [facility] REPORT DATE: 10/27/2016 ELECTRONICALLY SIGNED BY: Dev Abebe III, M.D. 10/27/2016 - 10:51:42 [facility]D
[2016-10-27 15:22] LABS: Hematocrit 29.6 VOL% (42.0-52.0); Hemoglobin 9.7 GM/DL (14.0-18.0)
--- NOTE | 2016-10-27 16:24 | Hospitalist Progress Note ---
Assessment and Plan (1) Diabetes mellitus Status: Chronic Assessment and plan: SSI Current Visit: No Qualifiers: Diabetes mellitus type: type 2 (2) Essential hypertension Status: Chronic Assessment and plan: Holding home meds Current Visit: No (3) Obstructive sleep apnea Status: Chronic Current Visit: No (4) Pancytopenia Status: Acute Assessment and plan: Anemia due to blood loss Thrombocytopenia is chronic, followed by hematology, improved with platelet transfusion Current Visit: No (5) GI bleed Status: Acute Assessment and plan: GI managing Colonoscopy yesterday, with right colon vascular malformations, likely source of bleeding H/H stable Current Visit: Yes (6) Acute blood loss anemia Status: Acute Current Visit: Yes Hospitalist: Subjective Interval history: No acute events overnight. No repeat episodes of bleeding. H/H remains stable. If still stable tomorrow, will discharge. Exam - Constitutional Vitals: Period Temp Pulse Resp BP Sys/[place] Pulse Ox Last 24 Hr 97.6 F-98.9 F 60-81 18-20 122-147/45-65 95-100 General appearance: over weight - Head Head exam: Present: normocephalic, atraumatic - Eye Eye exam: Present: EOMI Pupils: Present: DEE - ENT ENT exam: Present: normal exam - Neck Neck exam: Present: normal inspection - Respiratory Respiratory exam: Present: clear to auscultation bilaterally - Cardiovascular Cardiovascular exam: Present: regular rate and rhythm - GI/Abdominal GI/Abdominal exam: Present: normal bowel sounds, soft. Absent: tenderness - Extremities Exam Extremities exam: Present: normal inspection - Back Exam Back exam: Present: normal inspection - Neurological Exam Neurological exam: Present: alert, oriented X3 - Psychiatric Psychiatric exam: Present: normal affect, normal mood - Skin Skin exam: Present: warm, intact Results - Labs CBC & BMP: 10/27/16 15:05 10/26/16 04:36 Quality Measures - VTE Contraindication to Pharmacological VTE Prophylaxis: High Risk of Bleeding
--- NOTE | 2016-10-27 17:32 | Gastrointestinal Progress Note ---
Assessment and Plan (1) GI bleed Status: Acute Assessment and plan: Patient appears stable with no sign of further bleeding. Hemoglobin 9.7. Would plan to discharge tomorrow from GI standpoint if no clinical change. He would need outpatient hemoglobin in approximately 1 week. Current Visit: Yes Gastroenterology - PN: Subj Interval history: Patient with no subjective complaints. He has had a couple of brown stools today. Hemoglobin stable. He is tolerating diet. Exam (Progress Note) - Constitutional Vitals: Period Temp Pulse Resp BP Sys/[place] Pulse Ox Last 24 Hr 97.6 F-98.9 F 60-81 18-20 122-147/45-65 95-100 General appearance: no acute distress, over weight - Head Head exam: Present: normocephalic, atraumatic - Eye Eye exam: Present: EOMI. Absent: scleral icterus Pupils: Present: normal accommodation - Respiratory Respiratory exam: Present: clear to auscultation bilaterally. Absent: wheezes - Cardiovascular Cardiovascular exam: Present: regular rate and rhythm. Absent: gallop, rubs - GI/Abdominal GI/Abdominal exam: Present: normal bowel sounds, soft. Absent: distended, tenderness - Extremities Exam Extremities exam: Absent: calf tenderness, edema - Neurological Exam Neurological exam: Present: alert, oriented X3, CN II-XII intact. Absent: motor sensory deficit - Psychiatric Psychiatric exam: Present: normal affect, normal mood - Skin Skin exam: Present: warm, dry Results - Labs CBC & BMP: 10/27/16 15:05 10/26/16 04:36 Lab Results: I have reviewed the past 24 hour labs
[2016-10-28 05:17] LABS: Hematocrit 26.3 VOL% (42.0-52.0); Hemoglobin 8.4 GM/DL (14.0-18.0)
[2016-10-28] MEDS: INSULIN LISPRO 100 UNIT/ML SUBCUT SCH ×2 (08:50→12:54)
[2016-10-28] MEDS: PANTOPRAZOLE 40 MG VIAL IV SCH (08:51)
[2016-10-28] MEDS: DULoxetine 30 MG CAPSULE PO SCH (08:51)
[2016-10-28 12:01] VITALS: BP 129/66
[2016-10-28 13:59] LABS: Hemoglobin 8.8 GM/DL (14.0-18.0)
--- NOTE | 2016-10-28 14:41 | Hospitalist Progress Note ---
Assessment and Plan (1) Diabetes mellitus Status: Chronic Assessment and plan: SSI Current Visit: No Qualifiers: Diabetes mellitus type: type 2 (2) Essential hypertension Status: Chronic Assessment and plan: Holding home meds Current Visit: No (3) Obstructive sleep apnea Status: Chronic Current Visit: No (4) Pancytopenia Status: Acute Assessment and plan: Anemia due to blood loss Thrombocytopenia is chronic, followed by hematology, improved with platelet transfusion Current Visit: No (5) GI bleed Status: Acute Assessment and plan: GI managing Colonoscopy yesterday, with right colon vascular malformations, likely source of bleeding H/H stable Current Visit: Yes (6) Acute blood loss anemia Status: Acute Current Visit: Yes Hospitalist: Subjective Interval history: Mr. Davis is a 71 year old white male with history of diabetes, hypertension , chronic neck pain, and depression who presented to the ED with a one-week history of dark tarry stools. Patient stated the tarry stool started about a week ago and he had 2-3 per day. He admitted to having dizziness with ambulation and lower extremity edema. Patient went to see his family physician Dr. Mendoza this morning who sent him to the ED. Patient also stated he has been out of his blood pressure medicines for 2 days with a recorded blood pressure in the ED upon exam of 118/63. Patient's H&H is 6.4/19.7 with normal white count and normal platelets. His creatinine is elevated at 1.6, blood sugars 197 , remainder of his chemistries are normal. Patient's coags are within normal limits. Upon exam patient is pale with skin dry, he is not hypotensive or tachycardic at this time and he has no active rectal bleeding. Patient states he had a scope done by Dr. Cates at [place] in June that showed internal hemorrhoids at that time. Patient does have a family history of colon cancer. Patient was admitted to the hospitalist service for evaluation of GI bleed. Gastroenterology was consulted, he underwent a colonoscopy 10/26/16 with right colon vascular malformations being the most likely source of bleeding. His hospital course was complicated by blood loss anemia requiring blood transfusion and thrombocytopenia requiring platelet transfusion. Hematology was consulted, his thrombocytopenia was chronic and responded well to transfusion. His H/H has also remained relatively stable for 48 hours post colonoscopy. He has now reached maximal benefit of inpatient stay and will be discharged to home. He already has an appointment scheduled with his pcp in 5 days. Exam - Constitutional Vitals: Period Temp Pulse Resp BP Sys/[place] Pulse Ox Last 24 Hr 97.6 F-98.7 F 60-81 16-22 129-138/59-78 95-100 Results - Labs CBC & BMP: 10/28/16 13:39 10/26/16 04:36 Quality Measures - VTE Contraindication to Pharmacological VTE Prophylaxis: High Risk of Bleeding
--- NOTE | 2016-10-28 14:43 | Gastrointestinal Progress Note ---
Assessment and Plan (1) GI bleed Status: Acute Assessment and plan: Patient appears stable with no sign of further bleeding. Hemoglobin 9.7. Would plan to discharge tomorrow from GI standpoint if no clinical change. He would need outpatient hemoglobin in approximately 1 week. 10/28-patient remains stable with no evidence of recurrent lower GI bleeding after recent coagulation of right colon vascular malformations. Agree with plan for discharge. Patient scheduled to see Dr. Nguyen next week and would obtain hemoglobin at that visit. Current Visit: Yes Gastroenterology - PN: Subj Interval history: Patient alert and denies any symptomatic complaints. No bowel movements overnight. Hemoglobin relatively stable at 8.8 today. Exam (Progress Note) - Constitutional Vitals: Period Temp Pulse Resp BP Sys/[place] Pulse Ox Last 24 Hr 97.6 F-98.7 F 60-81 16-22 129-138/59-78 95-100 General appearance: no acute distress, over weight - Head Head exam: Present: normocephalic, atraumatic - Eye Eye exam: Present: EOMI. Absent: scleral icterus - Respiratory Respiratory exam: Present: clear to auscultation bilaterally. Absent: wheezes - Cardiovascular Cardiovascular exam: Present: regular rate and rhythm. Absent: gallop, rubs - GI/Abdominal GI/Abdominal exam: Present: normal bowel sounds, soft. Absent: distended, organomegaly, tenderness - Neurological Exam Neurological exam: Present: alert, oriented X3, CN II-XII intact. Absent: motor sensory deficit - Psychiatric Psychiatric exam: Present: normal affect, normal mood - Skin Skin exam: Present: warm, dry Results - Labs CBC & BMP: 10/28/16 13:39 10/26/16 04:36 Lab Results: I have reviewed the past 24 hour labs
--- NOTE | 2016-10-28 14:46 | Discharge Summary ---
Hospital Course - Hospital Course Hospital Course: Mr. Davis is a 71 year old white male with history of diabetes, hypertension , chronic neck pain, and depression who presented to the ED with a one-week history of dark tarry stools. Patient stated the tarry stool started about a week ago and he had 2-3 per day. He admitted to having dizziness with ambulation and lower extremity edema. Patient went to see his family physician Dr. Mendoza this morning who sent him to the ED. Patient also stated he has been out of his blood pressure medicines for 2 days with a recorded blood pressure in the ED upon exam of 118/63. Patient's H&H is 6.4/19.7 with normal white count and normal platelets. His creatinine is elevated at 1.6, blood sugars 197 , remainder of his chemistries are normal. Patient's coags are within normal limits. Upon exam patient is pale with skin dry, he is not hypotensive or tachycardic at this time and he has no active rectal bleeding. Patient states he had a scope done by Dr. Cates at [place] in June that showed internal hemorrhoids at that time. Patient does have a family history of colon cancer. Patient was admitted to the hospitalist service for evaluation of GI bleed. Gastroenterology was consulted, he underwent a colonoscopy 10/26/16 with right colon vascular malformations being the most likely source of bleeding. His hospital course was complicated by blood loss anemia requiring blood transfusion and thrombocytopenia requiring platelet transfusion. Hematology was consulted, his thrombocytopenia was chronic and responded well to transfusion. His H/H has also remained relatively stable for 48 hours post colonoscopy. He has now reached maximal benefit of inpatient stay and will be discharged to home. He already has an appointment scheduled with his pcp in 5 days. - Time spent with patient Time with patient DS: Greater than 30 minutes (35) Diagnosis - Discharge Diagnosis (1) Diabetes mellitus Status: Chronic (2) Essential hypertension Status: Chronic (3) Obstructive sleep apnea Status: Chronic (4) Pancytopenia Status: Chronic (5) GI bleed Status: Resolved (6) Acute blood loss anemia Status: Resolved Discharge Plan - Discharge Data Disposition: Disch To Home/Self Care Condition at Discharge: Stable Activity: resume usual activities as tolerated Hygiene: no restrictions Weight Bearing at Discharge: weight bear as tolerated Driving: no restrictions Contact your physician if you experience:: Shortness of breath, Bleeding - Discharge Medications Continue Metoprolol Tartrate Tab [Lopressor Tab] 50 mg PO BID Duloxetine HCl [Cymbalta] 60 mg PO DAILY sitaGLIPtin [Januvia] 100 mg PO DAILY Canagliflozin [Invokana] 300 mg PO DAILY Mesa-3/Dha/Epa/Fish Oil [Mesa-3 Fish Oil 1,000 mg Sfgl] 1,000 mg PO TID Hydrocodone/Acetaminophen [Hydrocodon-Acetaminophen 5-325] 1 each PO BID PRN PRN Reason: Pain Insulin Degludec [Tresiba Flextouch U-100] 78 unit SUBCUT DAILY Discontinued Lisinopril 20 mg PO DAILY - Follow Up or Referral - Forms/Instructions Exam - Constitutional Vitals: Period Temp Pulse Resp BP Sys/[place] Pulse Ox Last 24 Hr 97.6 F-98.7 F 60-81 16-22 129-138/59-78 95-100 General appearance: over weight - Head Head exam: Present: normocephalic, atraumatic - Eye Eye exam: Present: EOMI Pupils: Present: DEE - ENT ENT exam: Present: normal exam - Neck Neck exam: Present: normal inspection - Respiratory Respiratory exam: Present: clear to auscultation bilaterally. Absent: wheezes - Cardiovascular Cardiovascular exam: Present: regular rate and rhythm - GI/Abdominal GI/Abdominal exam: Present: normal bowel sounds, soft. Absent: tenderness, rebound - Extremities Exam Extremities exam: Present: normal inspection - Back Exam Back exam: Present: normal inspection - Neurological Exam Neurological exam: Present: alert, oriented X3 - Psychiatric Psychiatric exam: Present: normal affect, normal mood - Skin Skin exam: Present: warm, intact Discharge Results Labs on day of discharge: Labs from last 24 hours 10/28/16 10/28/16 10/28/16 13:39 11:45 07:07 Hgb 8.8 L Hct 27.0 L POC Glucose 215 H 213 H 10/28/16 10/27/16 10/27/16 05:05 20:03 16:51 Hgb 8.4 L Hct 26.3 L POC Glucose 340 H 231 H 10/27/16 15:05 Hgb 9.7 L Hct 29.6 L POC Glucose DS: Provider Date of admission: 10/24/16 10:48 Primary care physician: . No PCP Attending physician on admission: Radha Ramires MD Consults: 10/24/16 11:42 Consult to Physician [CONS] Routine Comment: gib Consulting Provider: Tarik Blackwell When should Consulting Provider be notified: Now Person Notified: AWARE 10/24/16 11:46 Consult to [facility], Educator [CONS] Routine Reason for [employer]: Diabetes Education 10/25/16 11:51 Consult to Physician [CONS] Routine Comment: Consulting Provider: Jason Mcmahan Consult to Specialist Group: Hematology When should Consulting Provider be notified: Now Person Notified: SRAVAN Date Notified: 10/25/16 Time Notified: 12:08 Discharging clinician: Donna Cook MD
--- NOTE | 2016-10-31 12:55 | Physician Query Form ---
CLICK EDIT DOCUMENT TO SELECT QUERY ANSWER --> OK --> SIGN Yessica Silva RN Clinical Concrete Floor Installer W) [phone] (f) [phone] [email or web address] PROVIDERS: Make your selection(s) from the choices in EACH section by typing an "x" and enter comments in the comment section. Please use your independent medical judgment in providing your response. This request does not imply that any particular answer is desired or expected. CLINICAL INDICATORS: (Providers should not edit this section) Pt. admitted with GI Bleed. Colonscope showed right colon vascular malformations. Please clarify the type of vascular formation. Based on the above, could you clarify the appropriate diagnosis, if significant , that supports the above abnormalities and additional evaluation, monitoring, and/or treatment rendered: ( x) Pt. has acquired vascular formations ( ) Pt. has congenital vascular formations ( ) Other, please specify: ( ) Clinically unable to determine COMMENTS: PLEASE ALSO DOCUMENT RESPONSE IN PROGRESS NOTES AND/OR DISCHARGE SUMMARY Use of terms such as suspected, likely, or probable (associated with a specific diagnosis that is being evaluated, monitored, or treated as if it exists) are acceptable and can be restated in the discharge summary if not ruled out. MTDD
== END 2016-10-28 15:15 | disposition home or self-care (01) | DRG 378 ==
LOC: N.ED 09:10 → N.EDINP 10:48 → SUATTDRO 10:48 → N.CC 11:35 → N.5E 10-25 09:56
PROVIDERS: ADMIT Internal Medicine; ATTEND Internal Medicine

== ENCOUNTER 2017-12-06 11:17 | Inpatient (IN) ==
[2017-12-06 12:11] LABS: Basophils % 1.2 % (0.0-0.8); Eosinophils # 0.1 10*3/uL (0.0-0.87); Eosinophils % 4.8 % (0.00-10.9); Hematocrit 25.7 VOL% (42.0-52.0); Hemoglobin 7.5 GM/DL (14.0-18.0); Immature Granulocytes % 0.8 %; Immature Granulocytes Absolute 0.02 #; Lymphocytes # 0.5 10*3/uL (1.4-4.0); Lymphocytes % 19.8 % (21.2-54.2); Mean Corpuscular HGB Conc 29.2 GM/DL (32-36); Mean Corpuscular Hemoglobin 25 PG (27-34); Mean Corpuscular Volume 85.1 FL (87-102); Mean Platelet Volume 10.4 FL (9.6-12.0); Monocytes # 0.3 10*3/uL (0.11-0.8); Monocytes % 10.7 % (1.7-12.7); Neutrophils # 1.6 10*3/uL (1.4-7.4); Neutrophils % 62.7 % (38.7-73.9); Platelet Count 107 T/CUMM (130-400); Red Blood Count 3.02 MC/CUMM (3.8-5.5); Red Cell Distribution Width 17.9 % (9.3-17.3); White Blood Count 2.5 T/CUMM (4-12)
[2017-12-06 12:19] LABS: INR 1.2; PT Patient Result 12.2 SECS; Partial Thromboplastin Time 27.3 SECS (0-40)
[2017-12-06 12:34] LABS: % Iron Saturation 37.1 % (18-50)
[2017-12-06 12:39] LABS: Albumin 3.1 G/DL (3.4-5.0); Apearance,Urine CLEAR (Clear); Bilirubin,Total 0.4 MG/DL (0.2-1.0); Bilirubin,Urine Negative (Negative); Blood, Urine Negative (Negative); Calcium 8.7 MG/DL (8.5-10.1); Glucose,Urine (UA) >=500 mg/dL (Negative); Hyaline Casts,Urine 3 /LPF (0-3); Ketones,Urine Negative (Negative); Mucus,Urine Occasional /LPF (Occasional); Nitrite,Urine Negative (Negative); Osmolality,Calculated 287.3 MOS/KG (273-304); Potassium 4.6 MMOL/L (3.5-5.1); Protein,Urine 30 MG/DL; RBC,Urine <1 /HPF (0-4); Total Protein 7.4 G/DL (6.4-8.3); Urine Color Yellow (Yellow); Urine Specific Gravity 1.017 (1.001-1.035); Urine Urobilinogen < 2.0 EU/DL (0.2-1.0)
[2017-12-06 13:02] LABS: Folate 14.6 NG/ML (5.4-24.0)
[2017-12-06] MEDS ORDERED: ACETAMINOPHEN 325 MG TABLET PO PRN (14:50)
[2017-12-06] MEDS ORDERED: DEXTROSE 50% 25 GM/50 ML VIAL IV PRN (14:50)
[2017-12-06] MEDS ORDERED: GLUCAGON 1 MG VIAL IM PRN (14:50)
[2017-12-06] MEDS ORDERED: ONDANSETRON 4 MG/2 ML VIAL IV PRN (14:50)
[2017-12-06] MEDS ORDERED: SODIUM CHLORIDE 0.9% 1,000 ML IV PRN (14:56)
[2017-12-06] MEDS: SODIUM CHLORIDE 0.9% 1,000 ML IV SCH (17:10)
[2017-12-06] MEDS: INSULIN REGULAR 100 UNIT/ML SUBCUT SCH ×2 (17:11→21:30)
[2017-12-06] MEDS: INSULIN LISPRO PROTAMINE/LISPRO 75/25 100 UNIT/ML SUBCUT SCH (18:54)
[2017-12-07 02:52] LABS: Hematocrit 27.5 VOL% (42.0-52.0); Hemoglobin 8.3 GM/DL (14.0-18.0)
[2017-12-07 02:53] LABS: Basophils % 0.7 % (0.0-0.8); Eosinophils # 0.1 10*3/uL (0.0-0.87); Eosinophils % 4.9 % (0.00-10.9); Hematocrit 27.2 VOL% (42.0-52.0); Hemoglobin 8.1 GM/DL (14.0-18.0); Immature Granulocytes % 0.7 %; Immature Granulocytes Absolute 0.02 #; Lymphocytes # 0.7 10*3/uL (1.4-4.0); Lymphocytes % 25.8 % (21.2-54.2); Mean Corpuscular HGB Conc 29.8 GM/DL (32-36); Mean Corpuscular Hemoglobin 25 PG (27-34); Mean Corpuscular Volume 84.5 FL (87-102); Mean Platelet Volume 9.3 FL (9.6-12.0); Monocytes # 0.3 10*3/uL (0.11-0.8); Monocytes % 11.2 % (1.7-12.7); Neutrophils # 1.5 10*3/uL (1.4-7.4); Neutrophils % 56.7 % (38.7-73.9); Platelet Count 92 T/CUMM (130-400); Red Blood Count 3.22 MC/CUMM (3.8-5.5); Red Cell Distribution Width 17.6 % (9.3-17.3); White Blood Count 2.7 T/CUMM (4-12)
[2017-12-07 03:06] LABS: Calcium 8.4 MG/DL (8.5-10.1); Osmolality,Calculated 280.3 MOS/KG (273-304); Potassium 3.8 MMOL/L (3.5-5.1)
[2017-12-07] MEDS: INSULIN REGULAR 100 UNIT/ML SUBCUT SCH ×3 (08:51→17:10)
[2017-12-07] MEDS: PANTOPRAZOLE 40 MG TABLET PO SCH (10:13)
[2017-12-07] MEDS: METOPROLOL TARTRATE 50 MG TABLET PO SCH (10:13)
[2017-12-07] MEDS: INSULIN LISPRO PROTAMINE/LISPRO 75/25 100 UNIT/ML SUBCUT SCH ×2 (10:37→18:35)
[2017-12-07] MEDS: SODIUM CHLORIDE 0.9% 1,000 ML IV SCH (12:48)
[2017-12-07 15:06] LABS: Hematocrit 29.1 VOL% (42.0-52.0); Hemoglobin 8.8 GM/DL (14.0-18.0)
[2017-12-08] MEDS: INSULIN REGULAR 100 UNIT/ML SUBCUT SCH ×2 (00:56→08:42)
[2017-12-08 07:09] LABS: Basophils % 0.4 % (0.0-0.8); Eosinophils # 0.1 10*3/uL (0.0-0.87); Hematocrit 29.7 VOL% (42.0-52.0); Hemoglobin 8.8 GM/DL (14.0-18.0); Immature Granulocytes % 0.4 %; Immature Granulocytes Absolute 0.01 #; Lymphocytes # 0.5 10*3/uL (1.4-4.0); Lymphocytes % 20.6 % (21.2-54.2); Mean Corpuscular HGB Conc 29.6 GM/DL (32-36); Mean Corpuscular Hemoglobin 25 PG (27-34); Mean Corpuscular Volume 85.6 FL (87-102); Mean Platelet Volume 10.9 FL (9.6-12.0); Monocytes # 0.2 10*3/uL (0.11-0.8); Monocytes % 8.5 % (1.7-12.7); Neutrophils # 1.5 10*3/uL (1.4-7.4); Neutrophils % 66.1 % (38.7-73.9); Red Blood Count 3.47 MC/CUMM (3.8-5.5); Red Cell Distribution Width 18.5 % (9.3-17.3); White Blood Count 2.2 T/CUMM (4-12)
[2017-12-08 07:11] LABS: Platelet Count 91 T/CUMM (130-400)
[2017-12-08 07:35] LABS: Anisocytosis 1+; Hypochromasia 1+; Microcytosis 1+
[2017-12-08 07:36] LABS: Ovalocytes Slight; Platelet Estimate Decreased
[2017-12-08 07:44] LABS: Calcium 8.3 MG/DL (8.5-10.1); Osmolality,Calculated 279.3 MOS/KG (273-304); Potassium 4.3 MMOL/L (3.5-5.1)
[2017-12-08] MEDS: INSULIN LISPRO PROTAMINE/LISPRO 75/25 100 UNIT/ML SUBCUT SCH (09:28)
[2017-12-08] MEDS: METOPROLOL TARTRATE 50 MG TABLET PO SCH (09:28)
[2017-12-08] MEDS: PANTOPRAZOLE 40 MG TABLET PO SCH (09:28)
[2017-12-08 09:47] VITALS: BP 163/70
== END 2017-12-08 11:24 | disposition home or self-care (01) | DRG 811 ==
LOC: N.ED 11:17 → N.EDINP 14:50 → N.5E 16:22
PROVIDERS: ADMIT Internal Medicine; ATTEND Internal Medicine

== ENCOUNTER 2019-02-08 07:15 | Observation (INO) ==
[2019-02-08] MEDS ORDERED: ONDANSETRON 4 MG/2 ML VIAL IV PRN ×2 (07:27→10:06)
[2019-02-08] MEDS: LACTATED RINGERS 1,000 ML IV SCH (07:51)
[2019-02-08] MEDS ORDERED: PROPOFOL 200 MG/20 ML VIAL IV ONE (09:00)
[2019-02-08] MEDS ORDERED: LIDOCAINE 2% 5 ML VIAL ONE (09:00)
[2019-02-08 09:09] LABS: Basophils % 0.5 % (0.0-0.8); Eosinophils # 0.1 10*3/uL (0.0-0.87); Eosinophils % 3.1 % (0.00-10.9); Hematocrit 23.8 VOL% (42.0-52.0); Hemoglobin 7.3 GM/DL (14.0-18.0); Immature Granulocytes % 0.5 %; Immature Granulocytes Absolute 0.01 #; Lymphocytes # 0.5 10*3/uL (1.4-4.0); Lymphocytes % 24.1 % (21.2-54.2); Mean Corpuscular HGB Conc 30.7 GM/DL (32-36); Mean Corpuscular Volume 89.8 FL (87-102); Mean Platelet Volume 9.9 FL (9.6-12.0); Monocytes % 8.4 % (1.7-12.7); Neutrophils % 63.4 % (38.7-73.9); Platelet Count 76 T/CUMM (130-400); Red Blood Count 2.65 MC/CUMM (3.8-5.5); Red Cell Distribution Width 13.8 % (9.3-17.3); White Blood Count 1.9 T/CUMM (4-12)
[2019-02-08] MEDS ORDERED: SODIUM CHLORIDE 0.9% 1,000 ML IV PRN (10:08)
[2019-02-08 10:12] LABS: Eosinophils 3 % (0-10); Hypochromasia 1+; Lymphocytes 21 % (20-55); Segmented Neutrophils 71 % (50-85); Total Cells Counted 100
[2019-02-08 10:13] LABS: Microcytosis Slight; Ovalocytes Few
[2019-02-08 10:14] LABS: Polychromasia Slight
[2019-02-08 10:15] LABS: Platelet Estimate Decreased
[2019-02-08] MEDS ORDERED: DEXTROSE 50% 25 GM/50 ML VIAL IV PRN (11:17)
[2019-02-08] MEDS ORDERED: GLUCAGON 1 MG VIAL IM PRN (11:17)
[2019-02-08] MEDS: INSULIN REGULAR 100 UNIT/ML SUBCUT SCH ×2 (12:22→20:59)
[2019-02-08] MEDS ORDERED: FUROSEMIDE 20 MG/2 ML VIAL IV ONE (15:08)
[2019-02-08] MEDS: [UNRECOGNIZED DRUG - OTHER] PO SCH (20:58)
[2019-02-09 04:56] LABS: Basophils % 0.6 % (0.0-0.8); Eosinophils # 0.1 10*3/uL (0.0-0.87); Eosinophils % 6.1 % (0.00-10.9); Hematocrit 29.4 VOL% (42.0-52.0); Immature Granulocytes % 0.6 %; Immature Granulocytes Absolute 0.01 #; Lymphocytes # 0.6 10*3/uL (1.4-4.0); Lymphocytes % 30.7 % (21.2-54.2); Mean Corpuscular HGB Conc 30.6 GM/DL (32-36); Mean Corpuscular Volume 89.4 FL (87-102); Monocytes % 12.3 % (1.7-12.7); Neutrophils % 49.7 % (38.7-73.9); Platelet Count 78 T/CUMM (130-400); Red Blood Count 3.29 MC/CUMM (3.8-5.5); Red Cell Distribution Width 14.4 % (9.3-17.3); White Blood Count 1.8 T/CUMM (4-12)
[2019-02-09 05:51] LABS: Band Neutrophils 2 % (0-10); Eosinophils 8 % (0-10); Lymphocytes 31 % (20-55); Platelet Estimate Decreased; Segmented Neutrophils 47 % (50-85); Total Cells Counted 100
[2019-02-09] MEDS ORDERED: FERROUS SULFATE 325 MG TABLET PO SCH (09:00)
[2019-02-09] MEDS ORDERED: FUROSEMIDE 40 MG TABLET PO SCH (09:00)
[2019-02-09] MEDS ORDERED: CHOLECALCIFEROL 400 UNIT TABLET PO SCH (09:00)
[2019-02-09] MEDS ORDERED: SPIRONOLACTONE 50 MG TABLET PO SCH (09:00)
[2019-02-09] MEDS ORDERED: MULTIVITAMIN (CENTRUM) TABLET PO SCH (09:00)
[2019-02-09] MEDS ORDERED: CITALOPRAM 20 MG TABLET PO SCH (09:00)
[2019-02-09] MEDS ORDERED: PANTOPRAZOLE 40 MG TABLET PO SCH (09:00)
[2019-02-09] MEDS ORDERED: OMEGA 3 ACID ETHYL ESTERS 1 GM CAPSULE PO SCH (09:00)
[2019-02-09] MEDS ORDERED: NADOLOL 40 MG TABLET PO SCH (09:00)
[2019-02-09] MEDS ORDERED: predniSONE 5 MG TABLET PO SCH (09:00)
[2019-02-09] MEDS: LACTATED RINGERS 1,000 ML IV SCH (09:36)
[2019-02-09] MEDS: [UNRECOGNIZED DRUG - OTHER] PO SCH (09:37)
[2019-02-09] MEDS: INSULIN REGULAR 100 UNIT/ML SUBCUT SCH (13:00)
[2019-02-09 13:03] VITALS: BP 138/63
== END 2019-02-09 13:05 | disposition home or self-care (01) ==
LOC: N.SDSINP 07:15 → N.GILAB 07:15 → N.5E 07:15 → EDSTATUS 07:30 → N.SDSINP 10:43 → N.5E 10:43 → UNDODEPREF 02-27 11:22
PROVIDERS: ADMIT Internal Medicine Gastroenterology; ATTEND Internal Medicine Gastroenterology

== ENCOUNTER 2019-02-13 10:05 | Inpatient (IN) ==
[2019-02-13] MEDS ORDERED: SODIUM CHLORIDE 0.9% 1,000 ML IV STA (10:23)
[2019-02-13] MEDS ORDERED: PANTOPRAZOLE 40 MG VIAL IV STA (10:23)
[2019-02-13 10:52] LABS: Basophils % 0.4 % (0.0-0.8); Eosinophils # 0.1 10*3/uL (0.0-0.87); Eosinophils % 6.1 % (0.00-10.9); Hematocrit 31.3 VOL% (42.0-52.0); Hemoglobin 9.7 GM/DL (14.0-18.0); Immature Granulocytes % 0.4 %; Immature Granulocytes Absolute 0.01 #; Lymphocytes # 0.5 10*3/uL (1.4-4.0); Lymphocytes % 23.7 % (21.2-54.2); Mean Corpuscular Volume 88.9 FL (87-102); Mean Platelet Volume 10.2 FL (9.6-12.0); Monocytes % 9.6 % (1.7-12.7); Neutrophils % 59.8 % (38.7-73.9); Platelet Count 80 T/CUMM (130-400); Red Blood Count 3.52 MC/CUMM (3.8-5.5); Red Cell Distribution Width 14.4 % (9.3-17.3); White Blood Count 2.3 T/CUMM (4-12)
[2019-02-13 10:58] LABS: INR 1.2; PT Patient Result 12.7 SECS (9.6-12.2); Partial Thromboplastin Time 27.9 SECS (20.8-36.0)
[2019-02-13 11:12] LABS: Atypical Lymphocytes Few; Band Neutrophils 1 % (0-10); Eosinophils 9 % (0-10); Hypochromasia 1+; Lymphocytes 19 % (20-55); Microcytosis Slight; Ovalocytes Few; Platelet Estimate Decreased; Segmented Neutrophils 59 % (50-85); Total Cells Counted 100
[2019-02-13 11:26] LABS: Albumin 3.1 G/DL (3.4-5.0); Bilirubin,Total 1.1 MG/DL (0.2-1.0); Calcium 8.7 MG/DL (8.5-10.1); Osmolality,Calculated 289.4 MOS/KG (273-304); Total Protein 7.4 G/DL (6.4-8.3)
[2019-02-13] MEDS ORDERED: ONDANSETRON 4 MG/2 ML VIAL IV PRN (13:01)
[2019-02-13] MEDS ORDERED: DOCUSATE SODIUM 100 MG CAPSULE PO PRN (13:01)
[2019-02-13] MEDS ORDERED: NICOTINE 21 MG/24 HR PATCH TRANSDERM PRN (13:01)
[2019-02-13 13:30] LABS: Risk Ratio 4.96; VLDL CHOLESTEROL 28.4 MG/DL
[2019-02-13 13:35] LABS: Thyroid Stimulating Hormone 1.18 uIU/ml (0.358-3.74)
[2019-02-13] MEDS ORDERED: INFLUENZA VIRUS VACCINE 0.5 ML SYRINGE IM ONE (14:58)
[2019-02-13] MEDS ORDERED: PNEUMOCOCCAL VACCINE (13 VALENT) 0.5 ML SYRINGE IM ONE (14:58)
[2019-02-13 15:41] LABS: Hematocrit 27.8 VOL% (42.0-52.0); Hemoglobin 8.6 GM/DL (14.0-18.0)
[2019-02-13 20:09] LABS: Hematocrit 27.6 VOL% (42.0-52.0); Hemoglobin 8.4 GM/DL (14.0-18.0)
[2019-02-13] MEDS: PANTOPRAZOLE 40 MG VIAL IV SCH (21:38)
[2019-02-14 01:59] LABS: Hematocrit 29.3 VOL% (42.0-52.0)
[2019-02-14 04:58] LABS: Basophils % 0.7 % (0.0-0.8); Eosinophils # 0.1 10*3/uL (0.0-0.87); Eosinophils % 5.9 % (0.00-10.9); Hemoglobin 8.2 GM/DL (14.0-18.0); Lymphocytes # 0.6 10*3/uL (1.4-4.0); Lymphocytes % 38.6 % (21.2-54.2); Mean Corpuscular HGB Conc 30.4 GM/DL (32-36); Mean Corpuscular Volume 90.3 FL (87-102); Mean Platelet Volume 10.3 FL (9.6-12.0); Monocytes % 9.8 % (1.7-12.7); Platelet Count 67 T/CUMM (130-400); Red Blood Count 2.99 MC/CUMM (3.8-5.5); Red Cell Distribution Width 14.3 % (9.3-17.3); White Blood Count 1.5 T/CUMM (4-12)
[2019-02-14 05:25] LABS: Eosinophils 7 % (0-10); Lymphocytes 33 % (20-55); Segmented Neutrophils 55 % (50-85); Total Cells Counted 100
[2019-02-14 05:26] LABS: Atypical Lymphocytes Few; Hypochromasia 1+; Microcytosis 1+; Ovalocytes Slight; Platelet Estimate Decreased
[2019-02-14 05:28] LABS: Bilirubin,Total 0.8 MG/DL (0.2-1.0); Calcium 8.7 MG/DL (8.5-10.1); Total Protein 6.6 G/DL (6.4-8.3)
[2019-02-14] MEDS ORDERED: LACTATED RINGERS 1,000 ML IV SCH (07:00)
[2019-02-14] MEDS ORDERED: SODIUM PHOSPHATE ENEMA 133 ML BOTTLE RECTAL ONE (08:21)
[2019-02-14] MEDS ORDERED: LIDOCAINE 2% 5 ML VIAL ONE (09:48)
[2019-02-14] MEDS ORDERED: PHENYLEPHRINE 50 MG/5 ML VIAL ONE (09:48)
[2019-02-14] MEDS ORDERED: PROPOFOL 200 MG/20 ML VIAL IV ONE (09:48)
[2019-02-14 11:43] LABS: Hematocrit 28.4 VOL% (42.0-52.0); Hemoglobin 8.6 GM/DL (14.0-18.0)
[2019-02-14] MEDS: SPIRONOLACTONE 50 MG TABLET PO SCH (16:47)
[2019-02-14] MEDS: INSULIN REGULAR 100 UNIT/ML SUBCUT SCH (16:47)
[2019-02-14] MEDS: CITALOPRAM 20 MG TABLET PO SCH (16:47)
[2019-02-14] MEDS: NADOLOL 40 MG TABLET PO SCH (16:47)
[2019-02-14] MEDS: FUROSEMIDE 40 MG TABLET PO SCH (16:48)
[2019-02-14] MEDS: METOPROLOL TARTRATE 50 MG TABLET PO SCH (16:48)
[2019-02-14] MEDS: PANTOPRAZOLE 40 MG VIAL IV SCH ×2 (16:48→21:20)
[2019-02-14 18:00] LABS: Hematocrit 28.8 VOL% (42.0-52.0); Hemoglobin 8.6 GM/DL (14.0-18.0)
[2019-02-14] MEDS ORDERED: POLYETHYLENE GLYCOL POWDER 255 GM BOTTLE PO ONE (20:00)
[2019-02-14] MEDS ORDERED: BISACODYL 5 MG TABLET PO ONE (20:00)
[2019-02-15 01:27] LABS: Hematocrit 32.2 VOL% (42.0-52.0); Hemoglobin 9.7 GM/DL (14.0-18.0)
[2019-02-15 05:25] LABS: Basophils % 1.1 % (0.0-0.8); Eosinophils # 0.2 10*3/uL (0.0-0.87); Eosinophils % 5.7 % (0.00-10.9); Hematocrit 28.8 VOL% (42.0-52.0); Hemoglobin 8.7 GM/DL (14.0-18.0); Immature Granulocytes % 0.4 %; Immature Granulocytes Absolute 0.01 #; Lymphocytes # 0.7 10*3/uL (1.4-4.0); Lymphocytes % 26.3 % (21.2-54.2); Mean Corpuscular HGB Conc 30.2 GM/DL (32-36); Mean Corpuscular Volume 89.7 FL (87-102); Mean Platelet Volume 10.6 FL (9.6-12.0); Monocytes % 9.6 % (1.7-12.7); Neutrophils % 56.9 % (38.7-73.9); Red Blood Count 3.21 MC/CUMM (3.8-5.5); Red Cell Distribution Width 14.3 % (9.3-17.3); White Blood Count 2.8 T/CUMM (4-12)
[2019-02-15 05:32] LABS: Platelet Count 89 T/CUMM (130-400)
[2019-02-15 05:51] LABS: Albumin 3.2 G/DL (3.4-5.0); Bilirubin,Total 0.6 MG/DL (0.2-1.0); Calcium 8.5 MG/DL (8.5-10.1); Osmolality,Calculated 282.8 MOS/KG (273-304); Total Protein 6.9 G/DL (6.4-8.3)
[2019-02-15] MEDS ORDERED: LACTATED RINGERS 1,000 ML IV SCH (08:00)
[2019-02-15] MEDS ORDERED: LIDOCAINE 2% 5 ML VIAL ONE (10:20)
[2019-02-15] MEDS ORDERED: PROPOFOL 200 MG/20 ML VIAL IV ONE (10:20)
[2019-02-15] MEDS: SPIRONOLACTONE 50 MG TABLET PO SCH (14:30)
[2019-02-15] MEDS: FUROSEMIDE 40 MG TABLET PO SCH (14:31)
[2019-02-15] MEDS: METOPROLOL TARTRATE 50 MG TABLET PO SCH (14:31)
[2019-02-15] MEDS: CITALOPRAM 20 MG TABLET PO SCH (14:31)
[2019-02-15] MEDS: PANTOPRAZOLE 40 MG VIAL IV SCH ×2 (14:31→20:51)
[2019-02-15] MEDS: NADOLOL 40 MG TABLET PO SCH (14:31)
[2019-02-15] MEDS: INSULIN REGULAR 100 UNIT/ML SUBCUT SCH (14:31)
[2019-02-16 05:10] LABS: Basophils % 0.7 % (0.0-0.8); Eosinophils # 0.1 10*3/uL (0.0-0.87); Eosinophils % 3.3 % (0.00-10.9); Hematocrit 24.9 VOL% (42.0-52.0); Hemoglobin 7.6 GM/DL (14.0-18.0); Immature Granulocytes % 0.4 %; Immature Granulocytes Absolute 0.01 #; Lymphocytes # 0.6 10*3/uL (1.4-4.0); Lymphocytes % 20.8 % (21.2-54.2); Mean Corpuscular HGB Conc 30.5 GM/DL (32-36); Mean Corpuscular Volume 89.9 FL (87-102); Mean Platelet Volume 10.6 FL (9.6-12.0); Monocytes % 7.7 % (1.7-12.7); Neutrophils % 67.1 % (38.7-73.9); Platelet Count 70 T/CUMM (130-400); Red Blood Count 2.77 MC/CUMM (3.8-5.5); Red Cell Distribution Width 14.3 % (9.3-17.3); White Blood Count 2.7 T/CUMM (4-12)
[2019-02-16 05:27] LABS: Albumin 2.7 G/DL (3.4-5.0); Bilirubin,Total 1.1 MG/DL (0.2-1.0); Calcium 8.2 MG/DL (8.5-10.1); Osmolality,Calculated 283.4 MOS/KG (273-304); Total Protein 6.1 G/DL (6.4-8.3)
[2019-02-16] MEDS: INSULIN REGULAR 100 UNIT/ML SUBCUT SCH ×2 (08:50→12:11)
[2019-02-16] MEDS: FUROSEMIDE 40 MG TABLET PO SCH (08:51)
[2019-02-16] MEDS: NADOLOL 40 MG TABLET PO SCH (08:51)
[2019-02-16] MEDS: PANTOPRAZOLE 40 MG VIAL IV SCH ×2 (08:51→21:12)
[2019-02-16] MEDS: SPIRONOLACTONE 50 MG TABLET PO SCH (08:51)
[2019-02-16] MEDS: METOPROLOL TARTRATE 50 MG TABLET PO SCH (08:51)
[2019-02-16] MEDS: CITALOPRAM 20 MG TABLET PO SCH (08:51)
[2019-02-16] MEDS ORDERED: DEXTROSE 50% 25 GM/50 ML VIAL IV PRN (11:34)
[2019-02-16] MEDS ORDERED: GLUCAGON 1 MG VIAL IM PRN (11:34)
[2019-02-17] MEDS: SPIRONOLACTONE 50 MG TABLET PO SCH (08:37)
[2019-02-17] MEDS: FUROSEMIDE 40 MG TABLET PO SCH (08:37)
[2019-02-17] MEDS: CITALOPRAM 20 MG TABLET PO SCH (08:37)
[2019-02-17] MEDS: METOPROLOL TARTRATE 50 MG TABLET PO SCH (08:37)
[2019-02-17] MEDS: NADOLOL 40 MG TABLET PO SCH (08:38)
[2019-02-17] MEDS: PANTOPRAZOLE 40 MG VIAL IV SCH ×2 (08:38→21:30)
[2019-02-17] MEDS: INSULIN REGULAR 100 UNIT/ML SUBCUT SCH (08:40)
[2019-02-17 10:48] LABS: Basophils % 0.6 % (0.0-0.8); Eosinophils # 0.1 10*3/uL (0.0-0.87); Eosinophils % 3.1 % (0.00-10.9); Hematocrit 21.2 VOL% (42.0-52.0); Hemoglobin 6.5 GM/DL (14.0-18.0); Lymphocytes # 0.5 10*3/uL (1.4-4.0); Lymphocytes % 32.5 % (21.2-54.2); Mean Corpuscular HGB Conc 30.7 GM/DL (32-36); Mean Corpuscular Volume 89.1 FL (87-102); Mean Platelet Volume 10.1 FL (9.6-12.0); Monocytes % 8.8 % (1.7-12.7); Red Blood Count 2.38 MC/CUMM (3.8-5.5); Red Cell Distribution Width 14.5 % (9.3-17.3); White Blood Count 1.6 T/CUMM (4-12)
[2019-02-17 10:56] LABS: INR 1.2; PT Patient Result 13.3 SECS (9.6-12.2)
[2019-02-17 10:57] LABS: Platelet Count 74 T/CUMM (130-400)
[2019-02-17 11:07] LABS: Eosinophils 4 % (0-10); Hypochromasia 1+; Lymphocytes 34 % (20-55); Platelet Estimate Decreased; Segmented Neutrophils 51 % (50-85); Total Cells Counted 100
[2019-02-17 11:18] LABS: Albumin 2.6 G/DL (3.4-5.0); Bilirubin,Total 0.4 MG/DL (0.2-1.0); Calcium 8.2 MG/DL (8.5-10.1); Osmolality,Calculated 288.3 MOS/KG (273-304); Total Protein 5.8 G/DL (6.4-8.3)
[2019-02-17] MEDS ORDERED: SODIUM CHLORIDE 0.9% 1,000 ML IV PRN (12:24)
[2019-02-17 18:53] LABS: Hematocrit 22.5 VOL% (42.0-52.0); Hemoglobin 6.9 GM/DL (14.0-18.0)
[2019-02-18 04:27] LABS: Basophils % 0.7 % (0.0-0.8); Eosinophils # 0.1 10*3/uL (0.0-0.87); Eosinophils % 5.4 % (0.00-10.9); Hematocrit 23.5 VOL% (42.0-52.0); Hemoglobin 7.1 GM/DL (14.0-18.0); Lymphocytes # 0.6 10*3/uL (1.4-4.0); Lymphocytes % 37.8 % (21.2-54.2); Mean Corpuscular HGB Conc 30.2 GM/DL (32-36); Mean Corpuscular Volume 89.4 FL (87-102); Mean Platelet Volume 10.5 FL (9.6-12.0); Monocytes % 10.1 % (1.7-12.7); Red Blood Count 2.63 MC/CUMM (3.8-5.5); Red Cell Distribution Width 14.4 % (9.3-17.3); White Blood Count 1.5 T/CUMM (4-12)
[2019-02-18 04:28] LABS: Platelet Count 77 T/CUMM (130-400)
[2019-02-18 04:52] LABS: Hypochromasia 1+; Ovalocytes Slight; Platelet Estimate Decreased
[2019-02-18] MEDS: NADOLOL 40 MG TABLET PO SCH (09:29)
[2019-02-18] MEDS: SPIRONOLACTONE 50 MG TABLET PO SCH (09:31)
[2019-02-18] MEDS: METOPROLOL TARTRATE 50 MG TABLET PO SCH (09:32)
[2019-02-18] MEDS: CITALOPRAM 20 MG TABLET PO SCH (09:32)
[2019-02-18] MEDS: FUROSEMIDE 40 MG TABLET PO SCH (09:32)
[2019-02-18] MEDS: PANTOPRAZOLE 40 MG VIAL IV SCH ×2 (09:33→20:51)
[2019-02-18] MEDS: INSULIN REGULAR 100 UNIT/ML SUBCUT SCH (11:21)
[2019-02-18] MEDS ORDERED: FUROSEMIDE 20 MG TABLET PO SCH (13:01)
[2019-02-19 07:10] LABS: Basophils % 0.7 % (0.0-0.8); Eosinophils # 0.1 10*3/uL (0.0-0.87); Eosinophils % 5.8 % (0.00-10.9); Hematocrit 24.5 VOL% (42.0-52.0); Hemoglobin 7.6 GM/DL (14.0-18.0); Lymphocytes # 0.4 10*3/uL (1.4-4.0); Lymphocytes % 31.4 % (21.2-54.2); Mean Corpuscular Volume 89.4 FL (87-102); Mean Platelet Volume 10.4 FL (9.6-12.0); Monocytes % 10.2 % (1.7-12.7); Neutrophils % 51.9 % (38.7-73.9); Platelet Count 89 T/CUMM (130-400); Red Blood Count 2.74 MC/CUMM (3.8-5.5); Red Cell Distribution Width 14.1 % (9.3-17.3); White Blood Count 1.4 T/CUMM (4-12)
[2019-02-19 07:32] LABS: Eosinophils 3 % (0-10); Lymphocytes 30 % (20-55); Platelet Estimate Decreased; Segmented Neutrophils 61 % (50-85); Total Cells Counted 100
[2019-02-19 07:33] LABS: Hypochromasia 1+; Ovalocytes Slight
[2019-02-19 07:37] LABS: Albumin 2.7 G/DL (3.4-5.0); Bilirubin,Direct 0.15 MG/DL (0.0-0.20); Bilirubin,Indirect 0.5 MG/DL (0.0-1.0); Bilirubin,Total 0.6 MG/DL (0.2-1.0); Osmolality,Calculated 285.3 MOS/KG (273-304); Total Protein 6.2 G/DL (6.4-8.3)
[2019-02-19] MEDS: SPIRONOLACTONE 50 MG TABLET PO SCH (09:03)
[2019-02-19] MEDS: NADOLOL 40 MG TABLET PO SCH (09:03)
[2019-02-19] MEDS: METOPROLOL TARTRATE 50 MG TABLET PO SCH (09:04)
[2019-02-19] MEDS: PANTOPRAZOLE 40 MG VIAL IV SCH (09:05)
[2019-02-19] MEDS ORDERED: HEPARIN 5,000 UNIT/1 ML VIAL ONE (09:17)
[2019-02-19] MEDS: INSULIN REGULAR 100 UNIT/ML SUBCUT SCH (11:07)
[2019-02-19] MEDS: CITALOPRAM 20 MG TABLET PO SCH (11:14)
[2019-02-19 13:21] VITALS: BP 126/64
== END 2019-02-19 13:10 | disposition home or self-care (01) | DRG 433 ==
LOC: N.EDINP 10:05 → N.ED 10:05 → N.2W 14:25 → SUATTDRO 02-15 11:03 → N.4E 02-15 12:47
PROVIDERS: ADMIT Internal Medicine; ATTEND Internal Medicine
PROC: COLONHP (2019-02-15 11:20)

== ENCOUNTER 2019-03-05 17:33 | Inpatient (IN) ==
[2019-03-05] MEDS ORDERED: PANTOPRAZOLE 40 MG VIAL IV STA (18:36)
[2019-03-05] MEDS ORDERED: ONDANSETRON 4 MG/2 ML VIAL IV STA (18:36)
[2019-03-05 18:41] LABS: Basophils % 0.8 % (0.0-0.8); Eosinophils # 0.1 10*3/uL (0.0-0.87); Eosinophils % 5.9 % (0.00-10.9); Hematocrit 27.7 VOL% (42.0-52.0); Hemoglobin 8.3 GM/DL (14.0-18.0); Immature Granulocytes % 0.4 %; Immature Granulocytes Absolute 0.01 #; Lymphocytes # 0.6 10*3/uL (1.4-4.0); Lymphocytes % 25.9 % (21.2-54.2); Mean Corpuscular Volume 89.1 FL (87-102); Mean Platelet Volume 9.7 FL (9.6-12.0); Monocytes % 9.6 % (1.7-12.7); Neutrophils % 57.4 % (38.7-73.9); Platelet Count 98 T/CUMM (130-400); Red Blood Count 3.11 MC/CUMM (3.8-5.5); White Blood Count 2.4 T/CUMM (4-12)
[2019-03-05 18:48] LABS: Albumin 3.2 G/DL (3.4-5.0); Bilirubin,Total 0.5 MG/DL (0.2-1.0); Osmolality,Calculated 287.3 MOS/KG (273-304); Total Protein 7.4 G/DL (6.4-8.3)
[2019-03-05 19:04] LABS: INR 1.2; Partial Thromboplastin Time 27.8 SECS (20.8-36.0)
[2019-03-05 19:29] LABS: Troponin I < 0.015 NG/ML (0.00-0.045)
[2019-03-05] MEDS ORDERED: ONDANSETRON 4 MG/2 ML VIAL IV PRN (20:16)
[2019-03-05] MEDS ORDERED: SODIUM CHLORIDE 0.9% 1,000 ML IV PRN (20:27)
[2019-03-05] MEDS: OCTREOTIDE 500 MCG in SODIUM CHLORIDE 0.9% 100 ML IV SCH (23:21)
[2019-03-06 00:44] LABS: Hematocrit 23.1 VOL% (42.0-52.0)
[2019-03-06] MEDS ORDERED: DEXTROSE 10% 25 GM/250 ML BAG IV PRN (07:55)
[2019-03-06] MEDS ORDERED: GLUCAGON 1 MG VIAL IM PRN (07:55)
[2019-03-06] MEDS: OMEGA 3 ACID ETHYL ESTERS 1 GM CAPSULE PO SCH (09:24)
[2019-03-06] MEDS: CHOLECALCIFEROL 400 UNIT TABLET PO SCH (09:24)
[2019-03-06] MEDS: SPIRONOLACTONE 50 MG TABLET PO SCH (09:24)
[2019-03-06] MEDS: MULTIVITAMIN (CENTRUM) TABLET PO SCH (09:24)
[2019-03-06] MEDS: FUROSEMIDE 40 MG TABLET PO SCH (09:25)
[2019-03-06] MEDS: NADOLOL 40 MG TABLET PO SCH (09:25)
[2019-03-06] MEDS: METOPROLOL TARTRATE 50 MG TABLET PO SCH (09:25)
[2019-03-06] MEDS: FERROUS SULFATE 325 MG TABLET PO SCH (09:25)
[2019-03-06] MEDS: CITALOPRAM 20 MG TABLET PO SCH (09:25)
[2019-03-06] MEDS: PANTOPRAZOLE 40 MG TABLET PO SCH (09:26)
[2019-03-06 10:04] LABS: Hemoglobin 8.8 GM/DL (14.0-18.0)
[2019-03-06] MEDS: INSULIN LISPRO 100 UNIT/ML SUBCUT SCH ×3 (11:56→20:57)
[2019-03-06 12:59] LABS: Calcium 8.8 MG/DL (8.5-10.1); Osmolality,Calculated 290.5 MOS/KG (273-304)
[2019-03-06] MEDS ORDERED: IRON SUCROSE 300 MG in SODIUM CHLORIDE 0.9% 100 ML IV ONE (15:36)
[2019-03-06] MEDS ORDERED: FAMOTIDINE 20 MG/2 ML VIAL IV ONE (15:36)
[2019-03-06] MEDS ORDERED: diphenhydrAMINE 50 MG/1 ML VIAL IV ONE (15:36)
[2019-03-06] MEDS ORDERED: DEXAMETHASONE 10 MG/1 ML VIAL IV ONE (15:37)
[2019-03-06 17:19] LABS: Hematocrit 31.6 VOL% (42.0-52.0); Hemoglobin 9.7 GM/DL (14.0-18.0)
[2019-03-06] MEDS: OCTREOTIDE 500 MCG in SODIUM CHLORIDE 0.9% 100 ML IV SCH (18:35)
[2019-03-07] MEDS: OCTREOTIDE 500 MCG in SODIUM CHLORIDE 0.9% 100 ML IV SCH ×2 (05:20→14:24)
[2019-03-07 05:23] LABS: Basophils % 0.9 % (0.0-0.8); Eosinophils % 0.9 % (0.00-10.9); Hematocrit 30.1 VOL% (42.0-52.0); Hemoglobin 9.2 GM/DL (14.0-18.0); Immature Granulocytes % 0.9 %; Immature Granulocytes Absolute 0.01 #; Lymphocytes # 0.3 10*3/uL (1.4-4.0); Lymphocytes % 24.8 % (21.2-54.2); Mean Corpuscular HGB Conc 30.6 GM/DL (32-36); Mean Corpuscular Volume 88.5 FL (87-102); Mean Platelet Volume 10.3 FL (9.6-12.0); Monocytes % 2.7 % (1.7-12.7); Neutrophils % 69.8 % (38.7-73.9); Platelet Count 74 T/CUMM (130-400); Red Cell Distribution Width 14.8 % (9.3-17.3); White Blood Count 1.1 T/CUMM (4-12)
[2019-03-07 05:41] LABS: Calcium 8.5 MG/DL (8.5-10.1)
[2019-03-07 05:56] LABS: Eosinophils 1 % (0-10); Lymphocytes 20 % (20-55); Segmented Neutrophils 76 % (50-85)
[2019-03-07 05:58] LABS: Hypochromasia Slight; Ovalocytes 1+; Platelet Estimate Decreased; Total Cells Counted 100
[2019-03-07] MEDS: INSULIN LISPRO 100 UNIT/ML SUBCUT SCH ×4 (09:13→21:36)
[2019-03-07] MEDS: PANTOPRAZOLE 40 MG TABLET PO SCH (09:14)
[2019-03-07] MEDS: FUROSEMIDE 40 MG TABLET PO SCH (09:14)
[2019-03-07] MEDS: OMEGA 3 ACID ETHYL ESTERS 1 GM CAPSULE PO SCH (09:14)
[2019-03-07] MEDS: MULTIVITAMIN (CENTRUM) TABLET PO SCH (09:14)
[2019-03-07] MEDS: NADOLOL 40 MG TABLET PO SCH (09:14)
[2019-03-07] MEDS: CITALOPRAM 20 MG TABLET PO SCH (09:15)
[2019-03-07] MEDS: CHOLECALCIFEROL 400 UNIT TABLET PO SCH (09:15)
[2019-03-07] MEDS: FERROUS SULFATE 325 MG TABLET PO SCH (09:15)
[2019-03-07] MEDS: SPIRONOLACTONE 50 MG TABLET PO SCH (09:15)
[2019-03-07] MEDS: METOPROLOL TARTRATE 50 MG TABLET PO SCH (09:15)
[2019-03-08] MEDS: OCTREOTIDE 500 MCG in SODIUM CHLORIDE 0.9% 100 ML IV SCH (03:46)
[2019-03-08 05:27] LABS: Basophils % 0.5 % (0.0-0.8); Eosinophils # 0.1 10*3/uL (0.0-0.87); Eosinophils % 4.6 % (0.00-10.9); Hematocrit 29.1 VOL% (42.0-52.0); Hemoglobin 8.9 GM/DL (14.0-18.0); Lymphocytes # 0.6 10*3/uL (1.4-4.0); Lymphocytes % 27.6 % (21.2-54.2); Mean Corpuscular HGB Conc 30.6 GM/DL (32-36); Mean Corpuscular Volume 89.5 FL (87-102); Mean Platelet Volume 10.3 FL (9.6-12.0); Monocytes % 10.6 % (1.7-12.7); Neutrophils % 56.7 % (38.7-73.9); Platelet Count 82 T/CUMM (130-400); Red Blood Count 3.25 MC/CUMM (3.8-5.5); White Blood Count 2.2 T/CUMM (4-12)
[2019-03-08 05:49] LABS: Platelet Estimate Decreased
[2019-03-08 05:51] LABS: Anisocytosis 2+; Hypochromasia 1+; Ovalocytes Few; Poikilocytosis 1+
[2019-03-08 05:59] LABS: Calcium 8.7 MG/DL (8.5-10.1); Osmolality,Calculated 287.4 MOS/KG (273-304)
[2019-03-08] MEDS ORDERED: ceFAZolin 1,000 MG in SYRINGE 1 EACH IV ONE (06:30)
[2019-03-08] MEDS: CHOLECALCIFEROL 400 UNIT TABLET PO SCH (08:26)
[2019-03-08] MEDS: PANTOPRAZOLE 40 MG TABLET PO SCH (08:26)
[2019-03-08] MEDS: MULTIVITAMIN (CENTRUM) TABLET PO SCH (08:26)
[2019-03-08] MEDS: SPIRONOLACTONE 50 MG TABLET PO SCH (08:26)
[2019-03-08] MEDS: FUROSEMIDE 40 MG TABLET PO SCH (08:26)
[2019-03-08] MEDS: OMEGA 3 ACID ETHYL ESTERS 1 GM CAPSULE PO SCH (08:26)
[2019-03-08] MEDS: METOPROLOL TARTRATE 50 MG TABLET PO SCH (08:26)
[2019-03-08] MEDS: CITALOPRAM 20 MG TABLET PO SCH (08:26)
[2019-03-08] MEDS: FERROUS SULFATE 325 MG TABLET PO SCH (08:26)
[2019-03-08] MEDS: NADOLOL 40 MG TABLET PO SCH (08:26)
[2019-03-08] MEDS: INSULIN LISPRO 100 UNIT/ML SUBCUT SCH (08:29)
[2019-03-08 12:39] VITALS: BP 136/79
[2019-03-08] MEDS ORDERED: ASCORBIC ACID 500 MG TABLET PO SCH (21:00)
== END 2019-03-08 12:40 | disposition home or self-care (01) | DRG 378 ==
LOC: N.ED 17:33 → N.EDINP 17:33 → N.4E 21:00
PROVIDERS: ADMIT Hospitalist; ATTEND Hospitalist

== ENCOUNTER 2019-03-20 05:40 | Inpatient (IN) ==
[2019-03-19 13:33] LABS: Basophils % 0.8 % (0.0-0.8); Eosinophils # 0.2 10*3/uL (0.0-0.87); Eosinophils % 6.2 % (0.00-10.9); Hematocrit 36.1 VOL% (42.0-52.0); Hemoglobin 11.3 GM/DL (14.0-18.0); Immature Granulocytes % 0.4 %; Immature Granulocytes Absolute 0.01 #; Lymphocytes # 0.5 10*3/uL (1.4-4.0); Lymphocytes % 22.3 % (21.2-54.2); Mean Corpuscular HGB Conc 31.3 GM/DL (32-36); Mean Corpuscular Volume 90.5 FL (87-102); Neutrophils % 58.3 % (38.7-73.9); Platelet Count 76 T/CUMM (130-400); Red Blood Count 3.99 MC/CUMM (3.8-5.5); Red Cell Distribution Width 16.5 % (9.3-17.3); White Blood Count 2.4 T/CUMM (4-12)
[2019-03-19 13:41] LABS: INR 1.2; PT Patient Result 12.8 SECS (9.6-12.2)
[2019-03-19 13:49] LABS: Albumin 3.8 G/DL (3.4-5.0); Bilirubin,Total 0.7 MG/DL (0.2-1.0); Calcium 9.2 MG/DL (8.5-10.1); Osmolality,Calculated 282.7 MOS/KG (273-304); Total Protein 7.7 G/DL (6.4-8.3)
[2019-03-20] MEDS ORDERED: LEVOFLOXACIN INJ 500 MG in PREMIX 1 EACH IV ONE (07:30)
[2019-03-20] MEDS ORDERED: LEVOFLOXACIN INJ 100 ML IV ONE (08:23)
[2019-03-20] MEDS: SODIUM CHLORIDE 0.9% 1,000 ML IV SCH (08:26)
[2019-03-20] MEDS ORDERED: SEVOFLURANE 1 UNIT/15 MINUTE INH ONE (14:06)
[2019-03-20] MEDS ORDERED: LIDOCAINE 2% 5 ML VIAL ONE (14:06)
[2019-03-20] MEDS ORDERED: LACTATED RINGERS 1,000 ML IV ONE (14:07)
[2019-03-20] MEDS ORDERED: ROCURONIUM 100 MG/10 ML VIAL IV ONE (14:07)
[2019-03-20] MEDS ORDERED: ETOMIDATE 40 MG/20 ML VIAL IV ONE (14:07)
[2019-03-20] MEDS ORDERED: ONDANSETRON 4 MG/2 ML VIAL ONE ×2 (14:07→14:37)
[2019-03-20] MEDS ORDERED: NEOSTIGMINE 10 MG/10 ML VIAL ONE (14:07)
[2019-03-20] MEDS ORDERED: fentaNYL 100 MCG/2 ML VIAL ONE (14:07)
[2019-03-20] MEDS ORDERED: PHENYLEPHRINE 1 MG/10 ML SYRINGE IV ONE (14:07)
[2019-03-20] MEDS ORDERED: GLYCOPYRROLATE 0.4 MG/2 ML VIAL ONE (14:07)
[2019-03-20] MEDS ORDERED: hydrALAZINE 20 MG/1 ML VIAL ONE (14:13)
[2019-03-20] MEDS ORDERED: hydrALAZINE 20 MG/1 ML VIAL IV ONE (14:19)
[2019-03-20] MEDS ORDERED: ONDANSETRON 4 MG/2 ML VIAL IV PRN (14:44)
[2019-03-20] MEDS ORDERED: PROMETHAZINE 25 MG/1 ML VIAL ONE (14:53)
[2019-03-20] MEDS ORDERED: PROMETHAZINE INJ 25 MG in SODIUM CHLORIDE 0.9% 50 ML IV ONE (15:00)
[2019-03-20] MEDS: SODIUM CHLORIDE 0.45% 1,000 ML IV SCH (15:47)
[2019-03-20] MEDS ORDERED: DEXTROSE 10% 250 ML BAG IV PRN (15:49)
[2019-03-20] MEDS ORDERED: GLUCAGON 1 MG VIAL IM PRN (15:49)
[2019-03-20 16:06] VITALS: BP 138/68
[2019-03-20] MEDS: INSULIN LISPRO 100 UNIT/ML SUBCUT SCH (22:17)
[2019-03-21 05:33] LABS: Basophils % 0.5 % (0.0-0.8); Eosinophils # 0.1 10*3/uL (0.0-0.87); Eosinophils % 2.2 % (0.00-10.9); Hematocrit 35.9 VOL% (42.0-52.0); Hemoglobin 10.9 GM/DL (14.0-18.0); Immature Granulocytes % 0.3 %; Immature Granulocytes Absolute 0.02 #; Lymphocytes # 0.8 10*3/uL (1.4-4.0); Mean Corpuscular HGB Conc 30.4 GM/DL (32-36); Mean Corpuscular Volume 90.7 FL (87-102); Mean Platelet Volume 9.8 FL (9.6-12.0); Monocytes % 10.4 % (1.7-12.7); Neutrophils % 72.6 % (38.7-73.9); Platelet Count 106 T/CUMM (130-400); Red Blood Count 3.96 MC/CUMM (3.8-5.5); Red Cell Distribution Width 17.2 % (9.3-17.3); White Blood Count 5.9 T/CUMM (4-12)
[2019-03-21 05:59] LABS: Calcium 8.7 MG/DL (8.5-10.1); Osmolality,Calculated 282.5 MOS/KG (273-304)
[2019-03-21] MEDS: INSULIN LISPRO 100 UNIT/ML SUBCUT SCH ×2 (07:48→12:08)
[2019-03-21] MEDS ORDERED: METOPROLOL TARTRATE 50 MG TABLET PO SCH (09:00)
[2019-03-21] MEDS ORDERED: CHOLECALCIFEROL 400 UNIT TABLET PO SCH (09:00)
[2019-03-21] MEDS ORDERED: FERROUS SULFATE 325 MG TABLET PO SCH (09:00)
[2019-03-21] MEDS ORDERED: CITALOPRAM 20 MG TABLET PO SCH (09:00)
[2019-03-21] MEDS ORDERED: OMEGA 3 ACID ETHYL ESTERS 1 GM CAPSULE PO SCH (09:00)
[2019-03-21] MEDS ORDERED: INSULIN REGULAR 100 UNIT/ML SUBCUT SCH (09:00)
[2019-03-21] MEDS ORDERED: PANTOPRAZOLE 40 MG TABLET PO SCH (09:00)
[2019-03-21] MEDS ORDERED: FUROSEMIDE 40 MG TABLET PO SCH (09:00)
[2019-03-21] MEDS ORDERED: MULTIVITAMIN (CENTRUM) TABLET PO SCH (09:00)
[2019-03-21] MEDS ORDERED: NADOLOL 40 MG TABLET PO SCH (09:00)
[2019-03-21] MEDS ORDERED: SPIRONOLACTONE 50 MG TABLET PO SCH (09:00)
[2019-03-21] MEDS ORDERED: FUROSEMIDE 20 MG TABLET PO SCH (10:30)
[2019-03-21] MEDS: SODIUM CHLORIDE 0.9% 1,000 ML IV SCH (11:06)
[2019-03-21] MEDS: SODIUM CHLORIDE 0.45% 1,000 ML IV SCH (11:07)
== END 2019-03-21 12:22 | disposition home health service (06) | DRG 271 ==
LOC: N.RAD 05:40 → N.SDSINP 05:40 → N.ICU 15:07
PROVIDERS: ADMIT Internal Medicine; ATTEND Internal Medicine
PROC: IRTIPSW (2019-03-20 11:00)

== ENCOUNTER 2019-04-13 07:45 | Inpatient (IN) ==
[2019-04-13 09:03] LABS: Basophils % 0.7 % (0.0-0.8); Eosinophils # 0.1 10*3/uL (0.0-0.87); Eosinophils % 1.3 % (0.00-10.9); Hematocrit 34.2 VOL% (42.0-52.0); Hemoglobin 11.1 GM/DL (14.0-18.0); Immature Granulocytes % 0.6 %; Immature Granulocytes Absolute 0.03 #; Lymphocytes # 0.8 10*3/uL (1.4-4.0); Lymphocytes % 15.1 % (21.2-54.2); Mean Corpuscular HGB Conc 32.5 GM/DL (32-36); Mean Corpuscular Volume 92.9 FL (87-102); Mean Platelet Volume 9.3 FL (9.6-12.0); Monocytes % 4.4 % (1.7-12.7); Neutrophils % 77.9 % (38.7-73.9); Red Blood Count 3.68 MC/CUMM (3.8-5.5); Red Cell Distribution Width 21.2 % (9.3-17.3); White Blood Count 5.4 T/CUMM (4-12)
[2019-04-13 09:04] LABS: Platelet Count 107 T/CUMM (130-400)
[2019-04-13 09:07] LABS: INR 1.3; PT Patient Result 14.5 SECS (9.6-12.2); Partial Thromboplastin Time 28.9 SECS (20.8-36.0)
[2019-04-13 09:14] LABS: Albumin 2.8 G/DL (3.4-5.0); Bilirubin,Total 2.9 MG/DL (0.2-1.0); Calcium 8.3 MG/DL (8.5-10.1); Total Protein 6.6 G/DL (6.4-8.3)
[2019-04-13 09:41] LABS: Hypochromasia 1+; Ovalocytes Slight; Platelet Estimate Decreased
[2019-04-13] MEDS ORDERED: hydrALAZINE 20 MG/1 ML VIAL IV STA (13:56)
[2019-04-13] MEDS ORDERED: ONDANSETRON 4 MG/2 ML VIAL IV STA (14:04)
[2019-04-13] MEDS ORDERED: ONDANSETRON 4 MG/2 ML VIAL ONE (14:05)
[2019-04-13] MEDS ORDERED: DEXTROSE 50% 25 GM/50 ML VIAL IV PRN (14:32)
[2019-04-13] MEDS ORDERED: GLUCAGON 1 MG VIAL IM PRN (14:32)
[2019-04-13] MEDS ORDERED: LACTULOSE 320 GM/480 ML BOTTLE RECTAL ONE (15:00)
[2019-04-14 05:43] LABS: Basophils % 0.3 % (0.0-0.8); Eosinophils # 0.1 10*3/uL (0.0-0.87); Eosinophils % 1.2 % (0.00-10.9); Hematocrit 28.9 VOL% (42.0-52.0); Hemoglobin 9.7 GM/DL (14.0-18.0); Immature Granulocytes % 0.5 %; Immature Granulocytes Absolute 0.03 #; Lymphocytes # 0.8 10*3/uL (1.4-4.0); Lymphocytes % 12.9 % (21.2-54.2); Mean Corpuscular HGB Conc 33.6 GM/DL (32-36); Mean Corpuscular Volume 91.2 FL (87-102); Mean Platelet Volume 9.1 FL (9.6-12.0); Neutrophils % 79.1 % (38.7-73.9); Platelet Count 83 T/CUMM (130-400); Red Blood Count 3.17 MC/CUMM (3.8-5.5); Red Cell Distribution Width 21.7 % (9.3-17.3)
[2019-04-14 05:53] LABS: INR 1.5
[2019-04-14 06:08] LABS: Albumin 2.4 G/DL (3.4-5.0); Bilirubin,Total 4.1 MG/DL (0.2-1.0); Calcium 8.1 MG/DL (8.5-10.1); Osmolality,Calculated 301.4 MOS/KG (273-304); Risk Ratio 5.16; Thyroid Stimulating Hormone 0.425 uIU/ml (0.358-3.74); Total Protein 5.8 G/DL (6.4-8.3); VLDL CHOLESTEROL 17.8 MG/DL
[2019-04-14 06:32] LABS: Platelet Estimate Decreased; Polychromasia Few
[2019-04-14] MEDS ORDERED: LACTULOSE 320 GM/480 ML BOTTLE RECTAL ONE (07:48)
[2019-04-14] MEDS ORDERED: MAGNESIUM SULF RIDER 2 GM in PREMIX 1 EACH IV ONE ×2 (09:18→12:11)
[2019-04-14] MEDS: RIFAXIMIN 550 MG TABLET PO SCH ×2 (11:29→20:29)
[2019-04-14] MEDS: glipiZIDE 5 MG TABLET PO SCH (11:29)
[2019-04-14] MEDS: FERROUS SULFATE 325 MG TABLET PO SCH (11:29)
[2019-04-14] MEDS: CITALOPRAM 20 MG TABLET PO SCH (11:29)
[2019-04-14] MEDS: OMEGA 3 ACID ETHYL ESTERS 1 GM CAPSULE PO SCH (11:29)
[2019-04-14] MEDS: FUROSEMIDE 40 MG TABLET PO SCH (11:29)
[2019-04-14] MEDS: NADOLOL 40 MG TABLET PO SCH (11:29)
[2019-04-14] MEDS: MULTIVITAMIN (CENTRUM) TABLET PO SCH (11:29)
[2019-04-14] MEDS: PANTOPRAZOLE 40 MG TABLET PO SCH (11:29)
[2019-04-14] MEDS: LACTULOSE 20 GM/30 ML UDCUP PO SCH ×2 (12:13→19:48)
[2019-04-14] MEDS: INSULIN REGULAR 100 UNIT/ML SUBCUT SCH (12:40)
[2019-04-15] MEDS: LACTULOSE 20 GM/30 ML UDCUP PO SCH ×4 (02:02→18:48)
[2019-04-15 05:25] LABS: Basophils % 0.7 % (0.0-0.8); Eosinophils # 0.2 10*3/uL (0.0-0.87); Eosinophils % 3.8 % (0.00-10.9); Hematocrit 30.2 VOL% (42.0-52.0); Hemoglobin 9.9 GM/DL (14.0-18.0); Immature Granulocytes % 0.2 %; Immature Granulocytes Absolute 0.01 #; Lymphocytes % 23.6 % (21.2-54.2); Mean Corpuscular HGB Conc 32.8 GM/DL (32-36); Mean Corpuscular Volume 92.9 FL (87-102); Mean Platelet Volume 9.9 FL (9.6-12.0); Monocytes % 9.9 % (1.7-12.7); Neutrophils % 61.8 % (38.7-73.9); Red Blood Count 3.25 MC/CUMM (3.8-5.5); White Blood Count 4.2 T/CUMM (4-12)
[2019-04-15 05:26] LABS: Platelet Count 74 T/CUMM (130-400)
[2019-04-15 05:44] LABS: Hypochromasia 1+; Platelet Estimate Decreased
[2019-04-15 05:48] LABS: Albumin 2.5 G/DL (3.4-5.0); Bilirubin,Total 3.3 MG/DL (0.2-1.0); Calcium 8.3 MG/DL (8.5-10.1); Osmolality,Calculated 306.9 MOS/KG (273-304); Total Protein 5.7 G/DL (6.4-8.3)
[2019-04-15] MEDS: OMEGA 3 ACID ETHYL ESTERS 1 GM CAPSULE PO SCH (09:00)
[2019-04-15] MEDS: glipiZIDE 5 MG TABLET PO SCH (09:01)
[2019-04-15] MEDS: MULTIVITAMIN (CENTRUM) TABLET PO SCH (09:01)
[2019-04-15] MEDS: RIFAXIMIN 550 MG TABLET PO SCH ×2 (09:01→21:33)
[2019-04-15] MEDS: NADOLOL 40 MG TABLET PO SCH (09:01)
[2019-04-15] MEDS: CITALOPRAM 20 MG TABLET PO SCH (09:01)
[2019-04-15] MEDS: FUROSEMIDE 40 MG TABLET PO SCH (09:01)
[2019-04-15] MEDS: PANTOPRAZOLE 40 MG TABLET PO SCH (09:01)
[2019-04-15] MEDS: FERROUS SULFATE 325 MG TABLET PO SCH (09:02)
[2019-04-15] MEDS: INSULIN REGULAR 100 UNIT/ML SUBCUT SCH (09:05)
[2019-04-15] MEDS: POTASSIUM CHLORIDE 20 MEQ TABLET PO PRN ×3 (15:16→18:48)
[2019-04-15] MEDS: DEXTROSE 5% 1,000 ML IV SCH (17:04)
[2019-04-16] MEDS: LACTULOSE 20 GM/30 ML UDCUP PO SCH ×4 (02:00→19:51)
[2019-04-16 05:35] LABS: Basophils # 0.1 10*3/uL (0.0-0.2); Basophils % 1.2 % (0.0-0.8); Eosinophils # 0.4 10*3/uL (0.0-0.87); Eosinophils % 7.2 % (0.00-10.9); Hematocrit 30.3 VOL% (42.0-52.0); Hemoglobin 10.1 GM/DL (14.0-18.0); Immature Granulocytes % 0.4 %; Immature Granulocytes Absolute 0.02 #; Lymphocytes # 1.4 10*3/uL (1.4-4.0); Lymphocytes % 29.1 % (21.2-54.2); Mean Corpuscular HGB Conc 33.3 GM/DL (32-36); Mean Corpuscular Volume 92.9 FL (87-102); Mean Platelet Volume 9.6 FL (9.6-12.0); Monocytes % 9.6 % (1.7-12.7); Neutrophils % 52.5 % (38.7-73.9); Red Blood Count 3.26 MC/CUMM (3.8-5.5); Red Cell Distribution Width 21.5 % (9.3-17.3); White Blood Count 4.9 T/CUMM (4-12)
[2019-04-16 05:39] LABS: Platelet Count 76 T/CUMM (130-400)
[2019-04-16 05:54] LABS: Platelet Estimate Decreased; Polychromasia Few
[2019-04-16 06:03] LABS: Albumin 2.2 G/DL (3.4-5.0); Bilirubin,Total 2.6 MG/DL (0.2-1.0); Calcium 7.8 MG/DL (8.5-10.1); Osmolality,Calculated 289.8 MOS/KG (273-304); Total Protein 5.2 G/DL (6.4-8.3)
[2019-04-16] MEDS: DEXTROSE 5% 1,000 ML IV SCH ×2 (06:42→19:43)
[2019-04-16] MEDS: FUROSEMIDE 40 MG TABLET PO SCH (09:52)
[2019-04-16] MEDS: CITALOPRAM 20 MG TABLET PO SCH (09:52)
[2019-04-16] MEDS: glipiZIDE 5 MG TABLET PO SCH (09:52)
[2019-04-16] MEDS: FERROUS SULFATE 325 MG TABLET PO SCH (09:52)
[2019-04-16] MEDS: OMEGA 3 ACID ETHYL ESTERS 1 GM CAPSULE PO SCH (09:52)
[2019-04-16] MEDS: RIFAXIMIN 550 MG TABLET PO SCH ×2 (09:52→20:56)
[2019-04-16] MEDS: NADOLOL 40 MG TABLET PO SCH (09:53)
[2019-04-16] MEDS: MULTIVITAMIN (CENTRUM) TABLET PO SCH (09:53)
[2019-04-16] MEDS: INSULIN REGULAR 100 UNIT/ML SUBCUT SCH (09:53)
[2019-04-16] MEDS: PANTOPRAZOLE 40 MG TABLET PO SCH (09:53)
[2019-04-17] MEDS: LACTULOSE 20 GM/30 ML UDCUP PO SCH ×6 (01:16→23:11)
[2019-04-17 05:58] LABS: Calcium 7.4 MG/DL (8.5-10.1); Osmolality,Calculated 279.8 MOS/KG (273-304)
[2019-04-17 06:01] LABS: Basophils % 0.7 % (0.0-0.8); Eosinophils # 0.3 10*3/uL (0.0-0.87); Eosinophils % 7.2 % (0.00-10.9); Hematocrit 30.1 VOL% (42.0-52.0); Immature Granulocytes % 0.4 %; Immature Granulocytes Absolute 0.02 #; Lymphocytes # 1.2 10*3/uL (1.4-4.0); Lymphocytes % 25.2 % (21.2-54.2); Mean Corpuscular HGB Conc 33.2 GM/DL (32-36); Mean Corpuscular Volume 93.8 FL (87-102); Mean Platelet Volume 9.4 FL (9.6-12.0); Neutrophils % 58.5 % (38.7-73.9); Red Blood Count 3.21 MC/CUMM (3.8-5.5); Red Cell Distribution Width 21.4 % (9.3-17.3); White Blood Count 4.6 T/CUMM (4-12)
[2019-04-17 06:03] LABS: Platelet Count 82 T/CUMM (130-400)
[2019-04-17 06:31] LABS: Platelet Estimate Decreased; Polychromasia Few
[2019-04-17] MEDS: NADOLOL 40 MG TABLET PO SCH (09:21)
[2019-04-17] MEDS: FERROUS SULFATE 325 MG TABLET PO SCH (09:21)
[2019-04-17] MEDS: FUROSEMIDE 40 MG TABLET PO SCH (09:21)
[2019-04-17] MEDS: MULTIVITAMIN (CENTRUM) TABLET PO SCH (09:21)
[2019-04-17] MEDS: OMEGA 3 ACID ETHYL ESTERS 1 GM CAPSULE PO SCH (09:21)
[2019-04-17] MEDS: RIFAXIMIN 550 MG TABLET PO SCH ×2 (09:21→22:18)
[2019-04-17] MEDS: glipiZIDE 5 MG TABLET PO SCH (09:21)
[2019-04-17] MEDS: PANTOPRAZOLE 40 MG TABLET PO SCH (09:21)
[2019-04-17] MEDS: POTASSIUM CHLORIDE 20 MEQ TABLET PO PRN ×3 (09:21→18:32)
[2019-04-17] MEDS: CITALOPRAM 20 MG TABLET PO SCH (09:22)
[2019-04-17] MEDS: DEXTROSE 5% 1,000 ML IV SCH ×2 (09:25→22:18)
[2019-04-17] MEDS: INSULIN REGULAR 100 UNIT/ML SUBCUT SCH (09:31)
[2019-04-17] MEDS ORDERED: LACTULOSE 20 GM/30 ML UDCUP PO SCH (10:30)
[2019-04-18] MEDS: LACTULOSE 20 GM/30 ML UDCUP PO SCH ×5 (04:25→21:41)
[2019-04-18 05:13] LABS: Calcium 7.8 MG/DL (8.5-10.1); Osmolality,Calculated 277.7 MOS/KG (273-304)
[2019-04-18 05:32] LABS: Basophils # 0.1 10*3/uL (0.0-0.2); Basophils % 0.9 % (0.0-0.8); Eosinophils # 0.5 10*3/uL (0.0-0.87); Eosinophils % 7.3 % (0.00-10.9); Hematocrit 33.7 VOL% (42.0-52.0); Hemoglobin 11.5 GM/DL (14.0-18.0); Immature Granulocytes % 0.3 %; Immature Granulocytes Absolute 0.02 #; Lymphocytes # 1.5 10*3/uL (1.4-4.0); Lymphocytes % 23.2 % (21.2-54.2); Mean Corpuscular HGB Conc 34.1 GM/DL (32-36); Mean Corpuscular Volume 92.6 FL (87-102); Monocytes % 8.7 % (1.7-12.7); Neutrophils % 59.6 % (38.7-73.9); Platelet Count 102 T/CUMM (130-400); Red Blood Count 3.64 MC/CUMM (3.8-5.5); Red Cell Distribution Width 21.5 % (9.3-17.3); White Blood Count 6.3 T/CUMM (4-12)
[2019-04-18 05:57] LABS: Hypochromasia 1+
[2019-04-18 05:58] LABS: Platelet Estimate Decreased
[2019-04-18] MEDS: INSULIN REGULAR 100 UNIT/ML SUBCUT SCH (08:42)
[2019-04-18] MEDS: FUROSEMIDE 40 MG TABLET PO SCH (09:23)
[2019-04-18] MEDS: OMEGA 3 ACID ETHYL ESTERS 1 GM CAPSULE PO SCH (09:23)
[2019-04-18] MEDS: MULTIVITAMIN (CENTRUM) TABLET PO SCH (09:23)
[2019-04-18] MEDS: NADOLOL 40 MG TABLET PO SCH (09:23)
[2019-04-18] MEDS: PANTOPRAZOLE 40 MG TABLET PO SCH (09:23)
[2019-04-18] MEDS: FERROUS SULFATE 325 MG TABLET PO SCH (09:23)
[2019-04-18] MEDS: RIFAXIMIN 550 MG TABLET PO SCH ×2 (09:23→21:41)
[2019-04-18] MEDS: CITALOPRAM 20 MG TABLET PO SCH (09:23)
[2019-04-18] MEDS: glipiZIDE 5 MG TABLET PO SCH (09:23)
[2019-04-18] MEDS: DEXTROSE 5% 1,000 ML IV SCH (15:14)
[2019-04-19] MEDS: LACTULOSE 20 GM/30 ML UDCUP PO SCH ×7 (00:15→23:45)
[2019-04-19] MEDS: NADOLOL 40 MG TABLET PO SCH (08:52)
[2019-04-19] MEDS: RIFAXIMIN 550 MG TABLET PO SCH ×2 (08:53→21:04)
[2019-04-19] MEDS: FUROSEMIDE 40 MG TABLET PO SCH (08:53)
[2019-04-19] MEDS: OMEGA 3 ACID ETHYL ESTERS 1 GM CAPSULE PO SCH (08:53)
[2019-04-19] MEDS: FERROUS SULFATE 325 MG TABLET PO SCH (08:53)
[2019-04-19] MEDS: glipiZIDE 5 MG TABLET PO SCH (08:53)
[2019-04-19] MEDS: MULTIVITAMIN (CENTRUM) TABLET PO SCH (08:53)
[2019-04-19] MEDS: CITALOPRAM 20 MG TABLET PO SCH (08:53)
[2019-04-19] MEDS: PANTOPRAZOLE 40 MG TABLET PO SCH (08:53)
[2019-04-19] MEDS: INSULIN REGULAR 100 UNIT/ML SUBCUT SCH (09:00)
[2019-04-19] MEDS ORDERED: ONDANSETRON ODT 4 MG TABLET PO PRN (14:02)
[2019-04-20] MEDS: LACTULOSE 20 GM/30 ML UDCUP PO SCH ×5 (04:58→20:16)
[2019-04-20] MEDS: DEXTROSE 5% 1,000 ML IV SCH ×2 (09:53→16:00)
[2019-04-20] MEDS: OMEGA 3 ACID ETHYL ESTERS 1 GM CAPSULE PO SCH (10:02)
[2019-04-20] MEDS: RIFAXIMIN 550 MG TABLET PO SCH ×2 (10:04→20:15)
[2019-04-20] MEDS: CITALOPRAM 20 MG TABLET PO SCH (10:04)
[2019-04-20] MEDS: MULTIVITAMIN (CENTRUM) TABLET PO SCH (10:04)
[2019-04-20] MEDS: PANTOPRAZOLE 40 MG TABLET PO SCH (10:04)
[2019-04-20] MEDS: FUROSEMIDE 40 MG TABLET PO SCH (10:04)
[2019-04-20] MEDS: FERROUS SULFATE 325 MG TABLET PO SCH (10:05)
[2019-04-20] MEDS: glipiZIDE 5 MG TABLET PO SCH (10:05)
[2019-04-20] MEDS: NADOLOL 40 MG TABLET PO SCH (10:05)
[2019-04-20] MEDS: INSULIN REGULAR 100 UNIT/ML SUBCUT SCH (10:06)
[2019-04-21] MEDS: LACTULOSE 20 GM/30 ML UDCUP PO SCH ×7 (00:35→23:40)
[2019-04-21] MEDS: DEXTROSE 5% 1,000 ML IV SCH ×2 (06:49→20:47)
[2019-04-21] MEDS: MULTIVITAMIN (CENTRUM) TABLET PO SCH (09:10)
[2019-04-21] MEDS: NADOLOL 40 MG TABLET PO SCH (09:10)
[2019-04-21] MEDS: CITALOPRAM 20 MG TABLET PO SCH (09:10)
[2019-04-21] MEDS: RIFAXIMIN 550 MG TABLET PO SCH ×2 (09:11→22:31)
[2019-04-21] MEDS: OMEGA 3 ACID ETHYL ESTERS 1 GM CAPSULE PO SCH (09:11)
[2019-04-21] MEDS: FERROUS SULFATE 325 MG TABLET PO SCH (09:12)
[2019-04-21] MEDS: PANTOPRAZOLE 40 MG TABLET PO SCH (09:12)
[2019-04-21] MEDS: FUROSEMIDE 40 MG TABLET PO SCH (09:12)
[2019-04-21] MEDS: glipiZIDE 5 MG TABLET PO SCH (09:12)
[2019-04-21] MEDS: INSULIN REGULAR 100 UNIT/ML SUBCUT SCH (09:13)
[2019-04-22] MEDS: LACTULOSE 20 GM/30 ML UDCUP PO SCH ×2 (05:32→08:11)
[2019-04-22 05:53] LABS: Basophils % 0.5 % (0.0-0.8); Eosinophils # 0.3 10*3/uL (0.0-0.87); Eosinophils % 5.4 % (0.00-10.9); Hematocrit 26.7 VOL% (42.0-52.0); Hemoglobin 9.2 GM/DL (14.0-18.0); Immature Granulocytes % 0.4 %; Immature Granulocytes Absolute 0.02 #; Lymphocytes # 1.2 10*3/uL (1.4-4.0); Mean Corpuscular HGB Conc 34.5 GM/DL (32-36); Mean Corpuscular Volume 91.1 FL (87-102); Mean Platelet Volume 9.8 FL (9.6-12.0); Monocytes % 12.9 % (1.7-12.7); Neutrophils % 58.8 % (38.7-73.9); Platelet Count 80 T/CUMM (130-400); Red Blood Count 2.93 MC/CUMM (3.8-5.5); Red Cell Distribution Width 20.8 % (9.3-17.3); White Blood Count 5.6 T/CUMM (4-12)
[2019-04-22 06:05] LABS: Osmolality,Calculated 270.2 MOS/KG (273-304)
[2019-04-22 06:19] LABS: Hypochromasia 1+; Platelet Estimate Decreased
[2019-04-22] MEDS ORDERED: POTASSIUM CHLORIDE 20 MEQ TABLET PO PRN (07:42)
[2019-04-22] MEDS: OMEGA 3 ACID ETHYL ESTERS 1 GM CAPSULE PO SCH (08:11)
[2019-04-22] MEDS: CITALOPRAM 20 MG TABLET PO SCH (08:11)
[2019-04-22] MEDS: MULTIVITAMIN (CENTRUM) TABLET PO SCH (08:12)
[2019-04-22] MEDS: NADOLOL 40 MG TABLET PO SCH (08:12)
[2019-04-22] MEDS: PANTOPRAZOLE 40 MG TABLET PO SCH (08:12)
[2019-04-22] MEDS: FERROUS SULFATE 325 MG TABLET PO SCH (08:12)
[2019-04-22] MEDS: RIFAXIMIN 550 MG TABLET PO SCH (08:12)
[2019-04-22] MEDS: glipiZIDE 5 MG TABLET PO SCH (08:13)
[2019-04-22] MEDS: FUROSEMIDE 40 MG TABLET PO SCH (08:13)
[2019-04-22] MEDS: INSULIN REGULAR 100 UNIT/ML SUBCUT SCH (09:22)
[2019-04-22] MEDS ORDERED: POTASSIUM CHLORIDE 20 MEQ TABLET PO ONE (09:43)
[2019-04-22 14:24] LABS: Apearance,Urine CLEAR (Clear); Bacteria,Urine Occasional /HPF (Few); Bilirubin,Urine Negative (Negative); Blood, Urine Negative (Negative); Glucose,Urine (UA) Negative (Negative); Hyaline Casts,Urine 4 /LPF (0-3); Ketones,Urine Negative (Negative); Nitrite,Urine Negative (Negative); Protein,Urine Negative; RBC,Urine 1 /HPF (0-4); Squamous Epithelial Cell,Urine Occasional /HPF (0-10); Urine Color Yellow (Yellow); Urine Specific Gravity 1.011 (1.001-1.035); Urine Urobilinogen < 2.0 EU/DL (0.2-1.0); WBC,Urine 1 /HPF (0-6)
[2019-04-22] MEDS ORDERED: LACTULOSE 20 GM/30 ML UDCUP PO SCH (15:00)
[2019-04-22 15:40] VITALS: BP 114/64
== END 2019-04-22 17:10 | disposition swing bed (61) | DRG 442 ==
LOC: EDUNIT# → EDBD → N.ED 07:45 → SUATTDRO 14:00 → N.EDINP 14:00 → N.4E 14:58
PROVIDERS: ADMIT Internal Medicine; ATTEND Internal Medicine Nephrology

== ENCOUNTER 2019-05-19 09:13 | Inpatient (IN) ==
[2019-05-19] MEDS ORDERED: PANTOPRAZOLE 40 MG VIAL IV STA (09:44)
[2019-05-19 10:00] LABS: Basophils % 0.8 % (0.0-0.8); Eosinophils # 0.1 10*3/uL (0.0-0.87); Eosinophils % 4.6 % (0.00-10.9); Hematocrit 30.2 VOL% (42.0-52.0); Hemoglobin 9.8 GM/DL (14.0-18.0); Immature Granulocytes % 0.4 %; Immature Granulocytes Absolute 0.01 #; Lymphocytes # 0.8 10*3/uL (1.4-4.0); Lymphocytes % 31.4 % (21.2-54.2); Mean Corpuscular HGB Conc 32.5 GM/DL (32-36); Mean Corpuscular Volume 98.7 FL (87-102); Mean Platelet Volume 9.3 FL (9.6-12.0); Monocytes % 6.7 % (1.7-12.7); Neutrophils % 56.1 % (38.7-73.9); Platelet Count 90 T/CUMM (130-400); Red Blood Count 3.06 MC/CUMM (3.8-5.5); Red Cell Distribution Width 16.6 % (9.3-17.3); White Blood Count 2.4 T/CUMM (4-12)
[2019-05-19 10:05] LABS: INR 1.4; PT Patient Result 15.2 SECS (9.6-12.2); Partial Thromboplastin Time 27.2 SECS (20.8-36.0)
[2019-05-19 10:07] LABS: Albumin 2.3 G/DL (3.4-5.0); Bilirubin,Total 1.7 MG/DL (0.2-1.0); Calcium 8.5 MG/DL (8.5-10.1); Total Protein 5.9 G/DL (6.4-8.3)
[2019-05-19 10:29] LABS: Platelet Estimate Decreased
[2019-05-19 10:30] LABS: Anisocytosis 1+
[2019-05-19] MEDS ORDERED: ONDANSETRON 4 MG/2 ML VIAL IV PRN (13:12)
[2019-05-19] MEDS ORDERED: ACETAMINOPHEN 325 MG TABLET PO PRN (13:12)
[2019-05-19 14:52] LABS: Hematocrit 27.7 VOL% (42.0-52.0); Hemoglobin 8.9 GM/DL (14.0-18.0)
[2019-05-19] MEDS: SODIUM CHLORIDE 0.9% 1,000 ML IV SCH (15:50)
[2019-05-19 21:41] LABS: Hematocrit 24.6 VOL% (42.0-52.0)
[2019-05-20] MEDS: SODIUM CHLORIDE 0.9% 1,000 ML IV SCH ×3 (03:17→15:26)
[2019-05-20 06:37] LABS: INR 1.5; PT Patient Result 16.5 SECS (9.6-12.2)
[2019-05-20 06:42] LABS: Basophils % 0.7 % (0.0-0.8); Eosinophils # 0.1 10*3/uL (0.0-0.87); Eosinophils % 3.9 % (0.00-10.9); Hematocrit 26.2 VOL% (42.0-52.0); Hemoglobin 8.6 GM/DL (14.0-18.0); Immature Granulocytes % 0.4 %; Immature Granulocytes Absolute 0.01 #; Lymphocytes # 0.8 10*3/uL (1.4-4.0); Lymphocytes % 28.7 % (21.2-54.2); Mean Corpuscular HGB Conc 32.8 GM/DL (32-36); Mean Corpuscular Volume 98.1 FL (87-102); Mean Platelet Volume 9.7 FL (9.6-12.0); Monocytes % 8.9 % (1.7-12.7); Neutrophils % 57.4 % (38.7-73.9); Platelet Count 83 T/CUMM (130-400); Red Blood Count 2.67 MC/CUMM (3.8-5.5); Red Cell Distribution Width 16.4 % (9.3-17.3); White Blood Count 2.8 T/CUMM (4-12)
[2019-05-20 06:53] LABS: Albumin 1.9 G/DL (3.4-5.0); Bilirubin,Total 1.5 MG/DL (0.2-1.0); Osmolality,Calculated 290.7 MOS/KG (273-304); Risk Ratio 3.51; Thyroid Stimulating Hormone 1.47 uIU/ml (0.358-3.74); Total Protein 4.9 G/DL (6.4-8.3); VLDL CHOLESTEROL 16.6 MG/DL
[2019-05-20 07:01] LABS: Hypochromasia 1+
[2019-05-20 07:02] LABS: Microcytosis 1+; Ovalocytes Few; Platelet Estimate Decreased
[2019-05-20] MEDS: PANTOPRAZOLE 40 MG VIAL IV SCH (08:10)
[2019-05-20 14:10] LABS: Hematocrit 32.3 VOL% (42.0-52.0); Hemoglobin 9.9 GM/DL (14.0-18.0)
[2019-05-20] MEDS: LACTULOSE 20 GM/30 ML UDCUP PO SCH ×2 (15:14→21:19)
[2019-05-21] MEDS: SODIUM CHLORIDE 0.9% 1,000 ML IV SCH ×4 (00:06→22:39)
[2019-05-21 05:17] LABS: Basophils % 1.1 % (0.0-0.8); Eosinophils # 0.1 10*3/uL (0.0-0.87); Hematocrit 26.2 VOL% (42.0-52.0); Hemoglobin 8.5 GM/DL (14.0-18.0); Immature Granulocytes % 0.4 %; Immature Granulocytes Absolute 0.01 #; Lymphocytes # 0.5 10*3/uL (1.4-4.0); Mean Corpuscular HGB Conc 32.4 GM/DL (32-36); Mean Corpuscular Volume 99.2 FL (87-102); Mean Platelet Volume 9.1 FL (9.6-12.0); Monocytes % 10.1 % (1.7-12.7); Neutrophils % 67.4 % (38.7-73.9); Platelet Count 91 T/CUMM (130-400); Red Blood Count 2.64 MC/CUMM (3.8-5.5); Red Cell Distribution Width 16.4 % (9.3-17.3); White Blood Count 2.7 T/CUMM (4-12)
[2019-05-21 05:23] LABS: INR 1.6; PT Patient Result 17.2 SECS (9.6-12.2)
[2019-05-21 05:39] LABS: Bilirubin,Total 2.1 MG/DL (0.2-1.0); Calcium 8.1 MG/DL (8.5-10.1); Osmolality,Calculated 289.8 MOS/KG (273-304); Total Protein 5.2 G/DL (6.4-8.3)
[2019-05-21 05:44] LABS: Anisocytosis 1+; Hypochromasia 1+; Microcytosis 1+
[2019-05-21 05:45] LABS: Ovalocytes Few; Platelet Estimate Decreased; Polychromasia Slight
[2019-05-21] MEDS: LACTULOSE 20 GM/30 ML UDCUP PO SCH ×3 (09:26→21:56)
[2019-05-21] MEDS: PANTOPRAZOLE 40 MG VIAL IV SCH (09:26)
[2019-05-22 05:08] LABS: Basophils % 1.1 % (0.0-0.8); Eosinophils # 0.1 10*3/uL (0.0-0.87); Eosinophils % 3.2 % (0.00-10.9); Hematocrit 23.5 VOL% (42.0-52.0); Hemoglobin 7.6 GM/DL (14.0-18.0); Immature Granulocytes % 0.5 %; Immature Granulocytes Absolute 0.01 #; Lymphocytes # 0.6 10*3/uL (1.4-4.0); Lymphocytes % 33.9 % (21.2-54.2); Mean Corpuscular HGB Conc 32.3 GM/DL (32-36); Mean Corpuscular Volume 99.2 FL (87-102); Mean Platelet Volume 8.9 FL (9.6-12.0); Monocytes % 13.2 % (1.7-12.7); Neutrophils % 48.1 % (38.7-73.9); Platelet Count 63 T/CUMM (130-400); Red Blood Count 2.37 MC/CUMM (3.8-5.5); Red Cell Distribution Width 16.5 % (9.3-17.3); White Blood Count 1.9 T/CUMM (4-12)
[2019-05-22 05:38] LABS: INR 1.6; PT Patient Result 17.8 SECS (9.6-12.2)
[2019-05-22 05:40] LABS: Band Neutrophils 1 % (0-10); Eosinophils 5 % (0-10); Hypochromasia 1+; Lymphocytes 30 % (20-55); Platelet Estimate Decreased; Segmented Neutrophils 53 % (50-85); Total Cells Counted 100
[2019-05-22 05:41] LABS: Microcytosis 1+; Ovalocytes Slight
[2019-05-22 05:47] LABS: Albumin 1.9 G/DL (3.4-5.0); Bilirubin,Total 2.2 MG/DL (0.2-1.0); Calcium 7.5 MG/DL (8.5-10.1); Osmolality,Calculated 289.7 MOS/KG (273-304); Total Protein 4.9 G/DL (6.4-8.3)
[2019-05-22] MEDS ORDERED: SODIUM PHOSPHATE ENEMA 133 ML BOTTLE RECTAL ONE (06:00)
[2019-05-22] MEDS: SODIUM CHLORIDE 0.9% 1,000 ML IV SCH ×3 (06:41→18:10)
[2019-05-22] MEDS ORDERED: LACTATED RINGERS 1,000 ML IV SCH (08:00)
[2019-05-22] MEDS ORDERED: SODIUM CHLORIDE 0.9% 1,000 ML IV PRN (08:22)
[2019-05-22] MEDS ORDERED: propofoL 200 MG/20 ML VIAL IV ONE (09:00)
[2019-05-22] MEDS ORDERED: ETOMIDATE 20 MG/10 ML VIAL IV ONE (09:00)
[2019-05-22] MEDS ORDERED: LIDOCAINE 2% 5 ML VIAL ONE (09:00)
[2019-05-22] MEDS: PANTOPRAZOLE 40 MG VIAL IV SCH (12:56)
[2019-05-22] MEDS: LACTULOSE 20 GM/30 ML UDCUP PO SCH ×3 (12:56→21:10)
[2019-05-22 20:04] LABS: Basophils % 0.8 % (0.0-0.8); Eosinophils # 0.2 10*3/uL (0.0-0.87); Hematocrit 30.8 VOL% (42.0-52.0); Hemoglobin 9.9 GM/DL (14.0-18.0); Immature Granulocytes % 0.3 %; Immature Granulocytes Absolute 0.01 #; Lymphocytes # 0.9 10*3/uL (1.4-4.0); Lymphocytes % 23.5 % (21.2-54.2); Mean Corpuscular HGB Conc 32.1 GM/DL (32-36); Mean Corpuscular Volume 97.8 FL (87-102); Monocytes % 13.2 % (1.7-12.7); Neutrophils % 58.2 % (38.7-73.9); Platelet Count 64 T/CUMM (130-400); Red Cell Distribution Width 16.9 % (9.3-17.3); White Blood Count 3.8 T/CUMM (4-12)
[2019-05-22 20:06] LABS: Red Blood Count 3.15 MC/CUMM (3.8-5.5)
[2019-05-22 20:56] LABS: Band Neutrophils 4 % (0-10); Eosinophils 2 % (0-10); Lymphocytes 18 % (20-55); Platelet Estimate Decreased; Segmented Neutrophils 68 % (50-85); Total Cells Counted 100
[2019-05-23] MEDS: SODIUM CHLORIDE 0.9% 1,000 ML IV SCH ×3 (00:49→17:29)
[2019-05-23 04:54] LABS: Basophils % 0.7 % (0.0-0.8); Eosinophils # 0.2 10*3/uL (0.0-0.87); Eosinophils % 6.2 % (0.00-10.9); Hematocrit 29.4 VOL% (42.0-52.0); Hemoglobin 9.7 GM/DL (14.0-18.0); Immature Granulocytes % 0.3 %; Immature Granulocytes Absolute 0.01 #; Lymphocytes # 0.9 10*3/uL (1.4-4.0); Lymphocytes % 29.2 % (21.2-54.2); Mean Corpuscular Volume 96.4 FL (87-102); Mean Platelet Volume 9.6 FL (9.6-12.0); Monocytes % 14.4 % (1.7-12.7); Neutrophils % 49.2 % (38.7-73.9); Platelet Count 87 T/CUMM (130-400); Red Blood Count 3.05 MC/CUMM (3.8-5.5); Red Cell Distribution Width 16.8 % (9.3-17.3); White Blood Count 2.9 T/CUMM (4-12)
[2019-05-23 05:13] LABS: Hypochromasia 1+; Platelet Estimate Decreased
[2019-05-23 05:27] LABS: Calcium 7.7 MG/DL (8.5-10.1)
[2019-05-23] MEDS: LACTULOSE 20 GM/30 ML UDCUP PO SCH ×3 (09:37→20:04)
[2019-05-23] MEDS: PANTOPRAZOLE 40 MG VIAL IV SCH (09:37)
[2019-05-23] MEDS ORDERED: ALBUTEROL 2.5 MG/3 ML NEB RESP TX PRN (21:29)
[2019-05-24] MEDS: ALBUTEROL 2.5 MG/3 ML NEB RESP TX SCH ×5 (00:44→14:32)
[2019-05-24] MEDS: SODIUM CHLORIDE 0.9% 1,000 ML IV SCH ×2 (02:00→17:01)
[2019-05-24 05:09] LABS: Eosinophils # 0.2 10*3/uL (0.0-0.87); Eosinophils % 6.5 % (0.00-10.9); Hematocrit 27.2 VOL% (42.0-52.0); Immature Granulocytes % 0.3 %; Immature Granulocytes Absolute 0.01 #; Lymphocytes # 0.9 10*3/uL (1.4-4.0); Lymphocytes % 30.6 % (21.2-54.2); Mean Corpuscular HGB Conc 33.1 GM/DL (32-36); Mean Corpuscular Volume 96.8 FL (87-102); Mean Platelet Volume 9.6 FL (9.6-12.0); Monocytes % 12.6 % (1.7-12.7); Red Blood Count 2.81 MC/CUMM (3.8-5.5); Red Cell Distribution Width 16.6 % (9.3-17.3); White Blood Count 2.9 T/CUMM (4-12)
[2019-05-24 05:17] LABS: Platelet Count 81 T/CUMM (130-400)
[2019-05-24 05:29] LABS: Calcium 7.5 MG/DL (8.5-10.1)
[2019-05-24 05:33] LABS: Hypochromasia 1+; Ovalocytes Slight; Platelet Estimate Decreased
[2019-05-24] MEDS: LACTULOSE 20 GM/30 ML UDCUP PO SCH ×3 (08:55→22:47)
[2019-05-24] MEDS: PANTOPRAZOLE 40 MG VIAL IV SCH (08:55)
[2019-05-24] MEDS ORDERED: FUROSEMIDE 40 MG/4 ML VIAL IV ONE (12:36)
[2019-05-24 13:04] LABS: Hematocrit 30.8 VOL% (42.0-52.0); Hemoglobin 9.9 GM/DL (14.0-18.0)
[2019-05-24 13:23] LABS: Troponin I 0.199 NG/ML (0.00-0.045)
[2019-05-24] MEDS ORDERED: SPIRONOLACTONE 100 MG TABLET PO SCH (14:30)
[2019-05-24] MEDS ORDERED: POTASSIUM CHLORIDE 20 MEQ/15 ML UDCUP PO ONE (17:56)
[2019-05-24] MEDS: ALBUTEROL/IPRATROPIUM 3 ML NEB RESP TX SCH ×2 (19:19→22:45)
[2019-05-24] MEDS: POTASSIUM CHLORIDE 20 MEQ TABLET PO SCH (22:47)
[2019-05-25] MEDS: INSULIN REGULAR 100 UNIT/ML SUBCUT SCH ×4 (00:15→18:46)
[2019-05-25 06:05] LABS: Basophils % 0.9 % (0.0-0.8); Eosinophils # 0.2 10*3/uL (0.0-0.87); Eosinophils % 6.8 % (0.00-10.9); Hematocrit 25.4 VOL% (42.0-52.0); Hemoglobin 8.2 GM/DL (14.0-18.0); Lymphocytes # 0.7 10*3/uL (1.4-4.0); Lymphocytes % 31.1 % (21.2-54.2); Mean Corpuscular HGB Conc 32.3 GM/DL (32-36); Mean Corpuscular Volume 96.9 FL (87-102); Monocytes % 12.8 % (1.7-12.7); Neutrophils % 48.4 % (38.7-73.9); Red Blood Count 2.62 MC/CUMM (3.8-5.5); Red Cell Distribution Width 16.8 % (9.3-17.3); White Blood Count 2.4 T/CUMM (4-12)
[2019-05-25 06:06] LABS: Platelet Count 70 T/CUMM (130-400)
[2019-05-25 06:24] LABS: Calcium 7.5 MG/DL (8.5-10.1)
[2019-05-25 06:50] LABS: Hypochromasia Slight; Microcytosis 1+; Ovalocytes Few
[2019-05-25 06:51] LABS: Anisocytosis 1+; Platelet Estimate Decreased
[2019-05-25] MEDS: ALBUTEROL/IPRATROPIUM 3 ML NEB RESP TX SCH ×5 (07:23→23:00)
[2019-05-25] MEDS: FERROUS SULFATE 325 MG TABLET PO SCH (08:50)
[2019-05-25] MEDS: CITALOPRAM 20 MG TABLET PO SCH (08:50)
[2019-05-25] MEDS: SPIRONOLACTONE 50 MG TABLET PO SCH ×2 (08:50→21:41)
[2019-05-25] MEDS: OMEGA 3 ACID ETHYL ESTERS 1 GM CAPSULE PO SCH (08:50)
[2019-05-25] MEDS: LACTULOSE 20 GM/30 ML UDCUP PO SCH ×2 (08:50→15:57)
[2019-05-25] MEDS: POTASSIUM CHLORIDE 20 MEQ TABLET PO SCH ×2 (08:50→21:42)
[2019-05-25] MEDS: FUROSEMIDE 40 MG/4 ML VIAL IV SCH (08:51)
[2019-05-25] MEDS: PANTOPRAZOLE 40 MG VIAL IV SCH (08:51)
[2019-05-25] MEDS ORDERED: FUROSEMIDE 40 MG TABLET PO SCH (09:00)
[2019-05-25] MEDS: glipiZIDE 5 MG TABLET PO SCH (15:57)
[2019-05-25 18:37] LABS: Hematocrit 28.8 VOL% (42.0-52.0); Hemoglobin 9.5 GM/DL (14.0-18.0)
[2019-05-25 22:05] LABS: Hematocrit 28.5 VOL% (42.0-52.0); Hemoglobin 9.4 GM/DL (14.0-18.0)
[2019-05-26] MEDS: INSULIN REGULAR 100 UNIT/ML SUBCUT SCH ×4 (05:27→18:43)
[2019-05-26 06:10] LABS: Albumin 1.6 G/DL (3.4-5.0); Bilirubin,Total 1.9 MG/DL (0.2-1.0); Calcium 7.6 MG/DL (8.5-10.1); Total Protein 4.6 G/DL (6.4-8.3)
[2019-05-26] MEDS: ALBUTEROL/IPRATROPIUM 3 ML NEB RESP TX SCH ×4 (07:46→19:46)
[2019-05-26 08:13] LABS: Basophils % 0.8 % (0.0-0.8); Eosinophils # 0.3 10*3/uL (0.0-0.87); Eosinophils % 8.5 % (0.00-10.9); Hematocrit 25.7 VOL% (42.0-52.0); Hemoglobin 8.5 GM/DL (14.0-18.0); Immature Granulocytes % 0.3 %; Immature Granulocytes Absolute 0.01 #; Lymphocytes # 0.9 10*3/uL (1.4-4.0); Mean Corpuscular HGB Conc 33.1 GM/DL (32-36); Mean Corpuscular Volume 96.3 FL (87-102); Mean Platelet Volume 9.7 FL (9.6-12.0); Monocytes % 9.6 % (1.7-12.7); NRBC # 0.02 10*3/uL; Neutrophils % 54.8 % (38.7-73.9); Platelet Count 81 T/CUMM (130-400); Red Blood Count 2.67 MC/CUMM (3.8-5.5); Red Cell Distribution Width 16.6 % (9.3-17.3); White Blood Count 3.5 T/CUMM (4-12)
[2019-05-26 08:44] LABS: Anisocytosis 1+; Hypochromasia 1+; Microcytosis 1+; Ovalocytes Slight; Platelet Estimate Decreased
[2019-05-26] MEDS: FUROSEMIDE 40 MG/4 ML VIAL IV SCH (08:54)
[2019-05-26] MEDS: CITALOPRAM 20 MG TABLET PO SCH (08:57)
[2019-05-26] MEDS: OMEGA 3 ACID ETHYL ESTERS 1 GM CAPSULE PO SCH (08:57)
[2019-05-26] MEDS: LACTULOSE 20 GM/30 ML UDCUP PO SCH ×2 (08:57→21:54)
[2019-05-26] MEDS: FERROUS SULFATE 325 MG TABLET PO SCH (08:57)
[2019-05-26] MEDS: POTASSIUM CHLORIDE 20 MEQ TABLET PO SCH ×2 (08:57→21:54)
[2019-05-26] MEDS: SPIRONOLACTONE 50 MG TABLET PO SCH ×2 (08:58→21:54)
[2019-05-26] MEDS: PANTOPRAZOLE 40 MG VIAL IV SCH (09:00)
[2019-05-26] MEDS: glipiZIDE 5 MG TABLET PO SCH ×2 (09:03→16:13)
[2019-05-26 11:58] LABS: Troponin I 0.114 NG/ML (0.00-0.045)
[2019-05-26] MEDS ORDERED: FUROSEMIDE 40 MG/4 ML VIAL IV ONE (13:59)
[2019-05-27] MEDS: INSULIN REGULAR 100 UNIT/ML SUBCUT SCH ×5 (00:05→23:50)
[2019-05-27] MEDS: ALBUTEROL/IPRATROPIUM 3 ML NEB RESP TX SCH ×5 (01:13→19:35)
[2019-05-27 06:03] LABS: Basophils % 0.8 % (0.0-0.8); Eosinophils # 0.3 10*3/uL (0.0-0.87); Eosinophils % 6.8 % (0.00-10.9); Hematocrit 28.1 VOL% (42.0-52.0); Hemoglobin 9.2 GM/DL (14.0-18.0); Immature Granulocytes % 0.3 %; Immature Granulocytes Absolute 0.01 #; Lymphocytes % 25.6 % (21.2-54.2); Mean Corpuscular HGB Conc 32.7 GM/DL (32-36); Mean Corpuscular Volume 96.2 FL (87-102); Mean Platelet Volume 9.5 FL (9.6-12.0); Neutrophils % 55.5 % (38.7-73.9); Platelet Count 100 T/CUMM (130-400); Red Blood Count 2.92 MC/CUMM (3.8-5.5); Red Cell Distribution Width 16.9 % (9.3-17.3)
[2019-05-27 06:20] LABS: Hypochromasia Slight; Platelet Estimate Decreased
[2019-05-27 06:21] LABS: Albumin 1.7 G/DL (3.4-5.0); Bilirubin,Total 2.3 MG/DL (0.2-1.0); Calcium 7.7 MG/DL (8.5-10.1); Microcytosis 1+; Osmolality,Calculated 279.3 MOS/KG (273-304); Total Protein 4.9 G/DL (6.4-8.3)
[2019-05-27] MEDS: SPIRONOLACTONE 50 MG TABLET PO SCH ×3 (07:51→20:29)
[2019-05-27] MEDS: LACTULOSE 20 GM/30 ML UDCUP PO SCH ×3 (07:51→20:29)
[2019-05-27] MEDS: CITALOPRAM 20 MG TABLET PO SCH ×2 (07:51→08:02)
[2019-05-27] MEDS: glipiZIDE 5 MG TABLET PO SCH ×2 (07:52→17:05)
[2019-05-27] MEDS: FUROSEMIDE 40 MG/4 ML VIAL IV SCH ×2 (07:52→08:04)
[2019-05-27] MEDS: OMEGA 3 ACID ETHYL ESTERS 1 GM CAPSULE PO SCH ×2 (07:52→08:04)
[2019-05-27] MEDS: POTASSIUM CHLORIDE 20 MEQ TABLET PO SCH ×3 (07:52→20:29)
[2019-05-27] MEDS: FERROUS SULFATE 325 MG TABLET PO SCH ×2 (07:52→08:03)
[2019-05-27] MEDS: PANTOPRAZOLE 40 MG VIAL IV SCH ×2 (07:53→08:04)
[2019-05-28] MEDS: ALBUTEROL/IPRATROPIUM 3 ML NEB RESP TX SCH ×3 (01:32→11:03)
[2019-05-28] MEDS: INSULIN REGULAR 100 UNIT/ML SUBCUT SCH ×2 (05:33→12:16)
[2019-05-28 06:23] LABS: Albumin 1.7 G/DL (3.4-5.0); Bilirubin,Total 2.4 MG/DL (0.2-1.0); Calcium 7.6 MG/DL (8.5-10.1); Osmolality,Calculated 277.4 MOS/KG (273-304); Total Protein 5.1 G/DL (6.4-8.3)
[2019-05-28] MEDS: OMEGA 3 ACID ETHYL ESTERS 1 GM CAPSULE PO SCH (08:31)
[2019-05-28] MEDS: POTASSIUM CHLORIDE 20 MEQ TABLET PO SCH (08:31)
[2019-05-28] MEDS: CITALOPRAM 20 MG TABLET PO SCH (08:31)
[2019-05-28] MEDS: LACTULOSE 20 GM/30 ML UDCUP PO SCH (08:31)
[2019-05-28] MEDS: glipiZIDE 5 MG TABLET PO SCH (08:31)
[2019-05-28] MEDS: FERROUS SULFATE 325 MG TABLET PO SCH (08:31)
[2019-05-28] MEDS: FUROSEMIDE 40 MG/4 ML VIAL IV SCH (08:32)
[2019-05-28] MEDS: SPIRONOLACTONE 50 MG TABLET PO SCH (08:32)
[2019-05-28] MEDS ORDERED: PANTOPRAZOLE 40 MG TABLET PO SCH (09:00)
[2019-05-28] MEDS ORDERED: TUBERCULIN SKIN TEST 0.1 ML SYRINGE INTRADERM ONE (10:37)
[2019-05-28 12:38] VITALS: BP 126/53
== END 2019-05-28 13:38 | DRG 377 ==
LOC: EDUNIT# → EDBD → N.ED 09:13 → SUATTDRO 12:17 → N.EDINP 12:17 → N.5E 14:14
PROVIDERS: ADMIT Internal Medicine; ATTEND Emergency Medicine

== ENCOUNTER 2019-06-11 12:32 | Inpatient (IN) ==
[2019-06-11 14:03] LABS: Basophils # 0.1 10*3/uL (0.0-0.2); Basophils % 0.8 % (0.0-0.8); Eosinophils # 0.1 10*3/uL (0.0-0.87); Eosinophils % 1.5 % (0.00-10.9); Hematocrit 34.9 VOL% (42.0-52.0); Hemoglobin 11.8 GM/DL (14.0-18.0); Immature Granulocytes % 0.3 %; Immature Granulocytes Absolute 0.03 #; Lymphocytes # 2.2 10*3/uL (1.4-4.0); Lymphocytes % 24.5 % (21.2-54.2); Mean Corpuscular HGB Conc 33.8 GM/DL (32-36); Mean Corpuscular Volume 93.6 FL (87-102); Mean Platelet Volume 8.5 FL (9.6-12.0); Monocytes % 5.8 % (1.7-12.7); Neutrophils % 67.1 % (38.7-73.9); Platelet Count 144 T/CUMM (130-400); Red Blood Count 3.73 MC/CUMM (3.8-5.5); Red Cell Distribution Width 15.7 % (9.3-17.3); White Blood Count 8.8 T/CUMM (4-12)
[2019-06-11 14:11] LABS: INR 1.4; PT Patient Result 15.4 SECS (9.6-12.2); Partial Thromboplastin Time 32.4 SECS (20.8-36.0)
[2019-06-11 14:25] LABS: Albumin 2.4 G/DL (3.4-5.0); Bilirubin,Total 3.6 MG/DL (0.2-1.0); Calcium 8.7 MG/DL (8.5-10.1); Osmolality,Calculated 287.3 MOS/KG (273-304)
[2019-06-11] MEDS ORDERED: GLUCAGON 1 MG VIAL IM PRN (16:01)
[2019-06-11] MEDS ORDERED: DEXTROSE 10% 25 GM/250 ML BAG IV PRN (16:01)
[2019-06-11] MEDS ORDERED: ONDANSETRON 4 MG/2 ML VIAL IV PRN (16:01)
[2019-06-11] MEDS ORDERED: cefTRIAXone 1,000 MG in SYRINGE 1 EACH IV SCH (16:30)
[2019-06-11] MEDS: INSULIN REGULAR 100 UNIT/ML SUBCUT SCH ×2 (18:32→20:57)
[2019-06-11] MEDS: SODIUM CHLORIDE 0.9% 1,000 ML IV SCH (19:07)
[2019-06-11] MEDS: LACTULOSE 20 GM/30 ML UDCUP PO SCH (20:57)
[2019-06-11] MEDS: POTASSIUM CHLORIDE 20 MEQ TABLET PO SCH (20:57)
[2019-06-11] MEDS: cefTRIAXone 1,000 MG in SYRINGE 1 EACH IV SCH (20:58)
[2019-06-12 07:15] LABS: Basophils # 0.1 10*3/uL (0.0-0.2); Basophils % 0.6 % (0.0-0.8); Eosinophils # 0.3 10*3/uL (0.0-0.87); Eosinophils % 3.2 % (0.00-10.9); Hematocrit 32.3 VOL% (42.0-52.0); Hemoglobin 10.9 GM/DL (14.0-18.0); Immature Granulocytes % 0.5 %; Immature Granulocytes Absolute 0.04 #; Lymphocytes # 2.2 10*3/uL (1.4-4.0); Lymphocytes % 27.1 % (21.2-54.2); Mean Corpuscular HGB Conc 33.7 GM/DL (32-36); Mean Corpuscular Volume 93.6 FL (87-102); Mean Platelet Volume 8.9 FL (9.6-12.0); Neutrophils % 61.6 % (38.7-73.9); Platelet Count 125 T/CUMM (130-400); Red Blood Count 3.45 MC/CUMM (3.8-5.5); Red Cell Distribution Width 15.9 % (9.3-17.3)
[2019-06-12 07:32] LABS: Albumin 2.1 G/DL (3.4-5.0); Bilirubin,Total 3.3 MG/DL (0.2-1.0); Calcium 8.4 MG/DL (8.5-10.1); Total Protein 6.1 G/DL (6.4-8.3)
[2019-06-12] MEDS: INSULIN REGULAR 100 UNIT/ML SUBCUT SCH ×4 (07:43→21:40)
[2019-06-12] MEDS: CALCIUM (CARBONATE) 600 MG TABLET PO SCH (08:15)
[2019-06-12] MEDS: LACTULOSE 20 GM/30 ML UDCUP PO SCH ×3 (08:15→20:57)
[2019-06-12] MEDS: PANTOPRAZOLE 40 MG TABLET PO SCH (08:15)
[2019-06-12] MEDS: OMEGA 3 ACID ETHYL ESTERS 1 GM CAPSULE PO SCH (08:15)
[2019-06-12] MEDS: MULTIVITAMIN (CENTRUM) TABLET PO SCH (08:15)
[2019-06-12] MEDS: FERROUS SULFATE 325 MG TABLET PO SCH (08:15)
[2019-06-12] MEDS: SPIRONOLACTONE 50 MG TABLET PO SCH (08:15)
[2019-06-12] MEDS: CITALOPRAM 20 MG TABLET PO SCH (08:16)
[2019-06-12] MEDS: FUROSEMIDE 40 MG TABLET PO SCH (08:16)
[2019-06-12] MEDS: glipiZIDE 5 MG TABLET PO SCH (08:28)
[2019-06-12] MEDS: POTASSIUM CHLORIDE 20 MEQ TABLET PO SCH ×2 (08:28→20:58)
[2019-06-12] MEDS: SODIUM CHLORIDE 0.9% 1,000 ML IV SCH (16:38)
[2019-06-12] MEDS: cefTRIAXone 1,000 MG in SYRINGE 1 EACH IV SCH (20:54)
[2019-06-12] MEDS: RIFAXIMIN 550 MG TABLET PO SCH (20:57)
[2019-06-13] MEDS: INSULIN REGULAR 100 UNIT/ML SUBCUT SCH ×4 (07:56→20:05)
[2019-06-13 08:49] LABS: Basophils # 0.1 10*3/uL (0.0-0.2); Basophils % 0.7 % (0.0-0.8); Eosinophils # 0.3 10*3/uL (0.0-0.87); Eosinophils % 4.3 % (0.00-10.9); Hematocrit 33.2 VOL% (42.0-52.0); Hemoglobin 11.1 GM/DL (14.0-18.0); Immature Granulocytes % 0.3 %; Immature Granulocytes Absolute 0.02 #; Lymphocytes % 27.3 % (21.2-54.2); Mean Corpuscular HGB Conc 33.4 GM/DL (32-36); Mean Corpuscular Volume 94.6 FL (87-102); Mean Platelet Volume 8.9 FL (9.6-12.0); Monocytes % 7.2 % (1.7-12.7); Neutrophils % 60.2 % (38.7-73.9); Platelet Count 109 T/CUMM (130-400); Red Blood Count 3.51 MC/CUMM (3.8-5.5); Red Cell Distribution Width 15.9 % (9.3-17.3); White Blood Count 7.2 T/CUMM (4-12)
[2019-06-13] MEDS: CITALOPRAM 20 MG TABLET PO SCH (09:09)
[2019-06-13] MEDS: PANTOPRAZOLE 40 MG TABLET PO SCH (09:09)
[2019-06-13] MEDS: LACTULOSE 20 GM/30 ML UDCUP PO SCH ×3 (09:09→20:04)
[2019-06-13] MEDS: POTASSIUM CHLORIDE 20 MEQ TABLET PO SCH ×2 (09:09→20:04)
[2019-06-13] MEDS: RIFAXIMIN 550 MG TABLET PO SCH ×3 (09:10→20:04)
[2019-06-13] MEDS: CALCIUM (CARBONATE) 600 MG TABLET PO SCH (09:10)
[2019-06-13] MEDS: SPIRONOLACTONE 50 MG TABLET PO SCH (09:10)
[2019-06-13] MEDS: FUROSEMIDE 40 MG TABLET PO SCH (09:10)
[2019-06-13] MEDS: OMEGA 3 ACID ETHYL ESTERS 1 GM CAPSULE PO SCH (09:11)
[2019-06-13] MEDS: MULTIVITAMIN (CENTRUM) TABLET PO SCH (09:11)
[2019-06-13] MEDS: FERROUS SULFATE 325 MG TABLET PO SCH (09:11)
[2019-06-13] MEDS: glipiZIDE 5 MG TABLET PO SCH (09:11)
[2019-06-13 09:13] LABS: Calcium 8.4 MG/DL (8.5-10.1); Osmolality,Calculated 284.4 MOS/KG (273-304)
[2019-06-13 13:13] LABS: Apearance,Urine CLEAR (Clear); Bilirubin,Urine Negative (Negative); Blood, Urine Negative (Negative); Glucose,Urine (UA) Negative (Negative); Ketones,Urine Negative (Negative); Mucus,Urine Occasional /LPF (Occasional); Nitrite,Urine Negative (Negative); Protein,Urine Negative; RBC,Urine 7 /HPF (0-4); Squamous Epithelial Cell,Urine Occasional /HPF (0-10); Urine Color Amber (Yellow); Urine Specific Gravity 1.018 (1.001-1.035); WBC,Urine 104 /HPF (0-6)
[2019-06-13] MEDS: cefTRIAXone 1,000 MG in SYRINGE 1 EACH IV SCH (20:03)
[2019-06-13] MEDS: SODIUM CHLORIDE 0.9% 1,000 ML IV SCH (20:11)
[2019-06-14 06:19] LABS: Basophils # 0.1 10*3/uL (0.0-0.2); Basophils % 0.9 % (0.0-0.8); Eosinophils # 0.2 10*3/uL (0.0-0.87); Eosinophils % 4.5 % (0.00-10.9); Hematocrit 28.6 VOL% (42.0-52.0); Hemoglobin 9.8 GM/DL (14.0-18.0); Immature Granulocytes % 0.4 %; Immature Granulocytes Absolute 0.02 #; Lymphocytes # 1.5 10*3/uL (1.4-4.0); Lymphocytes % 27.4 % (21.2-54.2); Mean Corpuscular HGB Conc 34.3 GM/DL (32-36); Mean Corpuscular Volume 92.9 FL (87-102); Monocytes % 8.2 % (1.7-12.7); Neutrophils % 58.6 % (38.7-73.9); Platelet Count 95 T/CUMM (130-400); Red Blood Count 3.08 MC/CUMM (3.8-5.5); Red Cell Distribution Width 15.9 % (9.3-17.3); White Blood Count 5.4 T/CUMM (4-12)
[2019-06-14 06:32] LABS: Calcium 8.3 MG/DL (8.5-10.1); Osmolality,Calculated 283.3 MOS/KG (273-304)
[2019-06-14 06:43] LABS: Eosinophils 1 % (0-10); Lymphocytes 14 % (20-55); Platelet Estimate Decreased; Segmented Neutrophils 81 % (50-85); Total Cells Counted 100
[2019-06-14 06:44] LABS: Anisocytosis Slight; Microcytosis Slight
[2019-06-14] MEDS: SPIRONOLACTONE 50 MG TABLET PO SCH (08:16)
[2019-06-14] MEDS: FUROSEMIDE 40 MG TABLET PO SCH (08:16)
[2019-06-14] MEDS: CALCIUM (CARBONATE) 600 MG TABLET PO SCH (08:16)
[2019-06-14] MEDS: POTASSIUM CHLORIDE 20 MEQ TABLET PO SCH (08:16)
[2019-06-14] MEDS: PANTOPRAZOLE 40 MG TABLET PO SCH (08:16)
[2019-06-14] MEDS: LACTULOSE 20 GM/30 ML UDCUP PO SCH (08:16)
[2019-06-14] MEDS: RIFAXIMIN 550 MG TABLET PO SCH (08:16)
[2019-06-14] MEDS: CITALOPRAM 20 MG TABLET PO SCH (08:16)
[2019-06-14] MEDS: OMEGA 3 ACID ETHYL ESTERS 1 GM CAPSULE PO SCH (08:16)
[2019-06-14] MEDS: FERROUS SULFATE 325 MG TABLET PO SCH (08:16)
[2019-06-14] MEDS: MULTIVITAMIN (CENTRUM) TABLET PO SCH (08:16)
[2019-06-14] MEDS: INSULIN REGULAR 100 UNIT/ML SUBCUT SCH ×2 (08:21→12:09)
[2019-06-14 12:16] VITALS: BP 144/59
[2019-06-14] MEDS ORDERED: CEFUROXIME 500 MG TABLET PO SCH (21:00)
== END 2019-06-14 13:57 | DRG 442 ==
LOC: EDBD → EDUNIT# → N.EDINP 12:32 → N.ED 12:32 → SUATTDRO 16:01 → N.4E 16:56
PROVIDERS: ADMIT Nurse Practitioner Family; ATTEND Family Medicine

== ENCOUNTER 2019-08-18 10:38 | Inpatient (IN) ==
[2019-08-18] MEDS ORDERED: PANTOPRAZOLE 40 MG VIAL IV STA (11:04)
[2019-08-18] MEDS: LACTATED RINGERS 1,000 ML IV SCH (11:48)
[2019-08-18 11:58] LABS: Basophils % 0.3 % (0.0-0.8); Eosinophils # 0.2 10*3/uL (0.0-0.87); Eosinophils % 4.7 % (0.00-10.9); Hematocrit 29.1 VOL% (42.0-52.0); Hemoglobin 9.5 GM/DL (14.0-18.0); Immature Granulocytes % 0.3 %; Immature Granulocytes Absolute 0.01 #; Lymphocytes # 0.8 10*3/uL (1.4-4.0); Lymphocytes % 25.2 % (21.2-54.2); Mean Corpuscular HGB Conc 32.6 GM/DL (32-36); Mean Corpuscular Volume 96.4 FL (87-102); Mean Platelet Volume 9.2 FL (9.6-12.0); Neutrophils % 60.5 % (38.7-73.9); Red Blood Count 3.02 MC/CUMM (3.8-5.5); Red Cell Distribution Width 15.2 % (9.3-17.3); White Blood Count 3.2 T/CUMM (4-12)
[2019-08-18 11:59] LABS: Platelet Count 86 T/CUMM (130-400)
[2019-08-18 12:08] LABS: INR 1.5; PT Patient Result 15.4 SECS (9.8-11.9)
[2019-08-18 12:15] LABS: Hypochromasia Slight; Macrocytosis Slight; Platelet Estimate Decreased
[2019-08-18 12:18] LABS: Albumin 1.7 G/DL (3.4-5.0); Bilirubin,Total 1.3 MG/DL (0.2-1.0); Calcium 8.5 MG/DL (8.5-10.1); Osmolality,Calculated 275.7 MOS/KG (273-304); Total Protein 5.6 G/DL (6.4-8.3)
[2019-08-18] MEDS ORDERED: ONDANSETRON 4 MG/2 ML VIAL IV PRN (13:52)
[2019-08-18] MEDS ORDERED: ACETAMINOPHEN 325 MG TABLET PO PRN (13:52)
[2019-08-18] MEDS ORDERED: GLUCAGON 1 MG VIAL IM PRN (13:52)
[2019-08-18] MEDS ORDERED: DEXTROSE 50% 25 GM/50 ML VIAL IV PRN (13:52)
[2019-08-18] MEDS ORDERED: INSULIN REGULAR 100 UNIT/ML SUBCUT SCH (16:30)
[2019-08-18] MEDS: INSULIN REGULAR 100 UNIT/ML SUBCUT SCH ×2 (16:33→23:15)
[2019-08-18] MEDS: SODIUM CHLORIDE 0.9% 1,000 ML IV SCH (16:43)
[2019-08-19] MEDS: SODIUM CHLORIDE 0.9% 1,000 ML IV SCH ×2 (01:19→10:16)
[2019-08-19 08:41] LABS: Basophils % 0.8 % (0.0-0.8); Eosinophils # 0.1 10*3/uL (0.0-0.87); Eosinophils % 5.4 % (0.00-10.9); Hematocrit 26.4 VOL% (42.0-52.0); Hemoglobin 8.7 GM/DL (14.0-18.0); Lymphocytes # 0.9 10*3/uL (1.4-4.0); Lymphocytes % 35.7 % (21.2-54.2); Mean Platelet Volume 9.2 FL (9.6-12.0); Monocytes % 10.1 % (1.7-12.7); Platelet Count 79 T/CUMM (130-400); Red Blood Count 2.75 MC/CUMM (3.8-5.5); Red Cell Distribution Width 15.3 % (9.3-17.3); White Blood Count 2.6 T/CUMM (4-12)
[2019-08-19] MEDS: INSULIN REGULAR 100 UNIT/ML SUBCUT SCH ×4 (08:43→20:55)
[2019-08-19 09:02] LABS: Calcium 8.3 MG/DL (8.5-10.1); Osmolality,Calculated 272.8 MOS/KG (273-304)
[2019-08-19 09:10] LABS: Hypochromasia Slight
[2019-08-19 09:11] LABS: Macrocytosis Slight; Platelet Estimate Decreased
[2019-08-19] MEDS: PANTOPRAZOLE 40 MG TABLET PO SCH (09:49)
[2019-08-19] MEDS: RIFAXIMIN 550 MG TABLET PO SCH ×2 (09:49→20:55)
[2019-08-19] MEDS: LACTULOSE 20 GM/30 ML UDCUP PO SCH ×4 (09:49→20:55)
[2019-08-19] MEDS: LACTATED RINGERS 1,000 ML IV SCH (09:55)
[2019-08-20 06:26] LABS: Basophils % 0.6 % (0.0-0.8); Eosinophils # 0.3 10*3/uL (0.0-0.87); Eosinophils % 7.6 % (0.00-10.9); Hematocrit 27.3 VOL% (42.0-52.0); Hemoglobin 8.8 GM/DL (14.0-18.0); Immature Granulocytes % 0.3 %; Immature Granulocytes Absolute 0.01 #; Lymphocytes % 30.5 % (21.2-54.2); Mean Corpuscular HGB Conc 32.2 GM/DL (32-36); Mean Corpuscular Volume 97.2 FL (87-102); Mean Platelet Volume 9.3 FL (9.6-12.0); Monocytes % 12.1 % (1.7-12.7); Neutrophils % 48.9 % (38.7-73.9); Red Blood Count 2.81 MC/CUMM (3.8-5.5); Red Cell Distribution Width 15.6 % (9.3-17.3); White Blood Count 3.3 T/CUMM (4-12)
[2019-08-20 06:27] LABS: Platelet Count 93 T/CUMM (130-400)
[2019-08-20 06:42] LABS: Osmolality,Calculated 279.3 MOS/KG (273-304)
[2019-08-20] MEDS: LACTATED RINGERS 1,000 ML IV SCH (07:58)
[2019-08-20] MEDS ORDERED: LIDOCAINE 2% 5 ML VIAL ONE (09:00)
[2019-08-20] MEDS ORDERED: propofoL 200 MG/20 ML VIAL IV ONE (09:00)
[2019-08-20] MEDS: INSULIN REGULAR 100 UNIT/ML SUBCUT SCH ×4 (09:46→21:45)
[2019-08-20] MEDS: LACTULOSE 20 GM/30 ML UDCUP PO SCH ×4 (11:03→21:42)
[2019-08-20] MEDS: PANTOPRAZOLE 40 MG TABLET PO SCH (11:03)
[2019-08-20] MEDS: RIFAXIMIN 550 MG TABLET PO SCH ×2 (11:03→21:42)
[2019-08-20] MEDS: SODIUM CHLORIDE 0.9% 1,000 ML IV SCH ×4 (11:18→20:15)
[2019-08-21 07:00] LABS: Basophils % 1.2 % (0.0-0.8); Eosinophils # 0.2 10*3/uL (0.0-0.87); Eosinophils % 6.1 % (0.00-10.9); Hematocrit 26.3 VOL% (42.0-52.0); Hemoglobin 8.4 GM/DL (14.0-18.0); Immature Granulocytes % 0.6 %; Immature Granulocytes Absolute 0.02 #; Lymphocytes % 28.3 % (21.2-54.2); Mean Corpuscular HGB Conc 31.9 GM/DL (32-36); Mean Corpuscular Volume 98.1 FL (87-102); Mean Platelet Volume 9.5 FL (9.6-12.0); Monocytes % 10.5 % (1.7-12.7); Neutrophils % 53.3 % (38.7-73.9); Red Blood Count 2.68 MC/CUMM (3.8-5.5); Red Cell Distribution Width 16.1 % (9.3-17.3); White Blood Count 3.4 T/CUMM (4-12)
[2019-08-21 07:03] LABS: Platelet Count 94 T/CUMM (130-400)
[2019-08-21 07:19] LABS: Hypochromasia 1+; Ovalocytes Slight; Platelet Estimate Decreased
[2019-08-21] MEDS: INSULIN REGULAR 100 UNIT/ML SUBCUT SCH ×4 (09:00→21:54)
[2019-08-21] MEDS: LACTULOSE 20 GM/30 ML UDCUP PO SCH ×4 (09:18→21:54)
[2019-08-21] MEDS: RIFAXIMIN 550 MG TABLET PO SCH ×2 (09:18→21:54)
[2019-08-21] MEDS: PANTOPRAZOLE 40 MG TABLET PO SCH (09:18)
[2019-08-21] MEDS: LACTATED RINGERS 1,000 ML IV SCH (09:19)
[2019-08-21] MEDS: SODIUM CHLORIDE 0.9% 1,000 ML IV SCH ×3 (13:50→21:57)
[2019-08-22 06:09] LABS: Eosinophils # 0.2 10*3/uL (0.0-0.87); Eosinophils % 7.7 % (0.00-10.9); Hematocrit 25.5 VOL% (42.0-52.0); Immature Granulocytes % 0.3 %; Immature Granulocytes Absolute 0.01 #; Lymphocytes # 0.9 10*3/uL (1.4-4.0); Mean Corpuscular HGB Conc 31.4 GM/DL (32-36); Mean Corpuscular Volume 98.8 FL (87-102); Mean Platelet Volume 9.2 FL (9.6-12.0); Monocytes % 10.6 % (1.7-12.7); Neutrophils % 50.4 % (38.7-73.9); Platelet Count 87 T/CUMM (130-400); Red Blood Count 2.58 MC/CUMM (3.8-5.5); Red Cell Distribution Width 15.9 % (9.3-17.3); White Blood Count 3.1 T/CUMM (4-12)
[2019-08-22 06:33] LABS: Hypochromasia 1+; Platelet Estimate Decreased
[2019-08-22 06:36] LABS: Calcium 7.5 MG/DL (8.5-10.1)
[2019-08-22] MEDS: SODIUM CHLORIDE 0.9% 1,000 ML IV SCH ×2 (06:46→16:20)
[2019-08-22] MEDS: INSULIN REGULAR 100 UNIT/ML SUBCUT SCH ×3 (07:24→16:21)
[2019-08-22] MEDS: LACTATED RINGERS 1,000 ML IV SCH (07:24)
[2019-08-22] MEDS: RIFAXIMIN 550 MG TABLET PO SCH (08:14)
[2019-08-22] MEDS: PANTOPRAZOLE 40 MG TABLET PO SCH (08:14)
[2019-08-22] MEDS: LACTULOSE 20 GM/30 ML UDCUP PO SCH ×3 (08:14→16:21)
[2019-08-22 12:42] VITALS: BP 132/53
== END 2019-08-22 16:47 | disposition home health service (06) | DRG 378 ==
LOC: N.ED 10:38 → N.EDINP 13:52 → N.3E 14:24
PROVIDERS: ADMIT Emergency Medicine; ATTEND Emergency Medicine

== ENCOUNTER 2019-10-10 10:59 | Inpatient (IN) ==
[2019-10-10] MEDS ORDERED: ONDANSETRON 4 MG/2 ML VIAL IV STA (11:32)
[2019-10-10] MEDS ORDERED: SODIUM CHLORIDE 0.9% 500 ML IV STA (11:32)
[2019-10-10] MEDS ORDERED: PANTOPRAZOLE 40 MG VIAL IV STA (11:32)
[2019-10-10 12:05] LABS: Eosinophils # 0.4 10*3/uL (0.0-0.87); Eosinophils % 9.4 % (0.00-10.9); Hematocrit 27.4 VOL% (42.0-52.0); Hemoglobin 8.8 GM/DL (14.0-18.0); Lymphocytes # 1.1 10*3/uL (1.4-4.0); Lymphocytes % 25.7 % (21.2-54.2); Mean Corpuscular HGB Conc 32.1 GM/DL (32-36); Mean Corpuscular Volume 101.1 FL (87-102); Mean Platelet Volume 9.8 FL (9.6-12.0); Neutrophils % 56.9 % (38.7-73.9); Platelet Count 110 T/CUMM (130-400); Red Blood Count 2.71 MC/CUMM (3.8-5.5); Red Cell Distribution Width 16.1 % (9.3-17.3); White Blood Count 4.1 T/CUMM (4-12)
[2019-10-10 12:16] LABS: INR 1.4; PT Patient Result 14.5 SECS (9.8-11.9); Partial Thromboplastin Time 31.2 SECS (23.9-33.8)
[2019-10-10 12:24] LABS: Albumin 1.4 G/DL (3.4-5.0); Bilirubin,Total 1.1 MG/DL (0.2-1.0); Calcium 7.7 MG/DL (8.5-10.1); Osmolality,Calculated 283.5 MOS/KG (273-304); Total Protein 5.4 G/DL (6.4-8.3)
[2019-10-10] MEDS ORDERED: cefTRIAXone 1,000 MG in SODIUM CHLORIDE 0.9% 100 ML IV STA (12:34)
[2019-10-10] MEDS ORDERED: SODIUM CHLORIDE 0.9% 1,000 ML IV PRN (12:57)
[2019-10-10] MEDS ORDERED: ALBUTEROL 2.5 MG/3 ML NEB RESP TX PRN (13:01)
[2019-10-10] MEDS ORDERED: GLUCAGON 1 MG VIAL IM PRN (13:06)
[2019-10-10] MEDS ORDERED: ONDANSETRON 4 MG/2 ML VIAL IV PRN (13:06)
[2019-10-10] MEDS: AZITHROMYCIN INJ 500 MG in SODIUM CHLORIDE 0.9% 250 ML IV SCH (13:30)
[2019-10-10] MEDS ORDERED: LACTULOSE 320 GM/480 ML BOTTLE RECTAL ONE (14:00)
[2019-10-10] MEDS: PANTOPRAZOLE INJ 200 MG in SODIUM CHLORIDE 0.9% 250 ML IV SCH (14:03)
[2019-10-10 15:03] LABS: Hematocrit 26.2 VOL% (42.0-52.0); Hemoglobin 8.4 GM/DL (14.0-18.0)
[2019-10-10] MEDS: BENZONATATE 100 MG CAPSULE PO SCH ×2 (15:55→21:24)
[2019-10-10] MEDS: LACTULOSE 20 GM/30 ML UDCUP PO SCH ×2 (15:55→21:23)
[2019-10-10] MEDS: ALBUTEROL/IPRATROPIUM 3 ML NEB RESP TX SCH (19:32)
[2019-10-10] MEDS ORDERED: RIFAXIMIN 550 MG TABLET PO SCH (21:00)
[2019-10-10] MEDS: FUROSEMIDE 40 MG TABLET PO SCH (21:24)
[2019-10-10] MEDS: RIFAXIMIN 550 MG TABLET PO SCH (21:24)
[2019-10-10] MEDS: POTASSIUM CHLORIDE 20 MEQ TABLET PO SCH (21:24)
[2019-10-10] MEDS: guaiFENesin/DM ER 600-30 MG TABLET PO SCH (21:24)
[2019-10-10 21:54] LABS: Hematocrit 28.5 VOL% (42.0-52.0)
[2019-10-11] MEDS: ALBUTEROL/IPRATROPIUM 3 ML NEB RESP TX SCH ×4 (02:25→19:40)
[2019-10-11 06:12] LABS: Basophils % 0.9 % (0.0-0.8); Eosinophils # 0.5 10*3/uL (0.0-0.87); Eosinophils % 11.4 % (0.00-10.9); Hematocrit 28.9 VOL% (42.0-52.0); Hemoglobin 9.1 GM/DL (14.0-18.0); Immature Granulocytes % 0.5 %; Immature Granulocytes Absolute 0.02 #; Lymphocytes # 1.2 10*3/uL (1.4-4.0); Lymphocytes % 28.6 % (21.2-54.2); Mean Corpuscular HGB Conc 31.5 GM/DL (32-36); Mean Corpuscular Volume 102.5 FL (87-102); Mean Platelet Volume 9.2 FL (9.6-12.0); Monocytes % 10.5 % (1.7-12.7); Neutrophils % 48.1 % (38.7-73.9); Platelet Count 101 T/CUMM (130-400); Red Blood Count 2.82 MC/CUMM (3.8-5.5); Red Cell Distribution Width 15.9 % (9.3-17.3); White Blood Count 4.3 T/CUMM (4-12)
[2019-10-11 06:29] LABS: Albumin 1.5 G/DL (3.4-5.0); Bilirubin,Total 1.3 MG/DL (0.2-1.0); Osmolality,Calculated 286.1 MOS/KG (273-304); Total Protein 5.5 G/DL (6.4-8.3)
[2019-10-11 06:31] LABS: % Iron Saturation 39.6 % (18-50); Ferritin 93.5 ng/ml (26-388)
[2019-10-11 06:41] LABS: Band Neutrophils 1 % (0-10); Eosinophils 14 % (0-10); Lymphocytes 24 % (20-55); Metamyelocytes 1 %; Platelet Estimate Decreased; Segmented Neutrophils 54 % (50-85); Total Cells Counted 100
[2019-10-11 06:42] LABS: Anisocytosis 1+; Hypochromasia 1+; Macrocytosis 1+
[2019-10-11 06:45] LABS: Risk Ratio 5.07; Thyroid Stimulating Hormone 2.78 uIU/ml (0.358-3.74)
[2019-10-11 06:58] LABS: Folate 8.1 NG/ML (5.4-24.0)
[2019-10-11] MEDS ORDERED: SODIUM CHLORIDE 0.9% 1,000 ML IV SCH (08:00)
[2019-10-11] MEDS ORDERED: propofoL 200 MG/20 ML VIAL IV ONE (09:00)
[2019-10-11] MEDS ORDERED: ETOMIDATE 20 MG/10 ML VIAL IV ONE (09:00)
[2019-10-11] MEDS ORDERED: PHENYLEPHRINE 1 MG/10 ML SYRINGE IV ONE (09:00)
[2019-10-11] MEDS ORDERED: LIDOCAINE 2% 5 ML VIAL ONE (09:00)
[2019-10-11] MEDS: PANTOPRAZOLE 40 MG TABLET PO SCH (09:48)
[2019-10-11] MEDS: glipiZIDE 5 MG TABLET PO SCH (09:48)
[2019-10-11] MEDS: LACTULOSE 20 GM/30 ML UDCUP PO SCH ×3 (10:01→21:18)
[2019-10-11] MEDS: BENZONATATE 100 MG CAPSULE PO SCH ×3 (10:01→21:18)
[2019-10-11] MEDS: OMEGA 3 ACID ETHYL ESTERS 1 GM CAPSULE PO SCH (12:02)
[2019-10-11] MEDS: FERROUS SULFATE 325 MG TABLET PO SCH (12:02)
[2019-10-11] MEDS: MULTIVITAMIN (CENTRUM) TABLET PO SCH (12:02)
[2019-10-11] MEDS: RIFAXIMIN 550 MG TABLET PO SCH ×2 (12:02→21:19)
[2019-10-11] MEDS: FUROSEMIDE 40 MG TABLET PO SCH ×2 (12:02→21:18)
[2019-10-11] MEDS: POTASSIUM CHLORIDE 20 MEQ TABLET PO SCH ×2 (12:03→21:19)
[2019-10-11] MEDS: guaiFENesin/DM ER 600-30 MG TABLET PO SCH ×2 (12:03→21:18)
[2019-10-11] MEDS: cefTRIAXone 1,000 MG in SYRINGE 1 EACH IV SCH (12:03)
[2019-10-11] MEDS: CITALOPRAM 20 MG TABLET PO SCH (12:03)
[2019-10-11] MEDS: INSULIN LISPRO 100 UNIT/ML SUBCUT SCH ×3 (12:42→21:18)
[2019-10-11] MEDS: AZITHROMYCIN INJ 500 MG in SODIUM CHLORIDE 0.9% 250 ML IV SCH (14:50)
[2019-10-11] MEDS: PANTOPRAZOLE INJ 200 MG in SODIUM CHLORIDE 0.9% 250 ML IV SCH (14:50)
[2019-10-11] MEDS: DESITIN 4OZ/NYSTATIN 15 GRAM MIXTURE PASTE TOP SCH ×2 (16:42→21:20)
[2019-10-12] MEDS: ALBUTEROL/IPRATROPIUM 3 ML NEB RESP TX SCH ×4 (00:55→20:11)
[2019-10-12 06:12] LABS: Albumin 1.4 G/DL (3.4-5.0); Bilirubin,Total 1.3 MG/DL (0.2-1.0); Calcium 7.9 MG/DL (8.5-10.1); Osmolality,Calculated 288.1 MOS/KG (273-304); Total Protein 5.2 G/DL (6.4-8.3)
[2019-10-12 07:10] LABS: Basophils # 0.1 10*3/uL (0.0-0.2); Eosinophils # 0.5 10*3/uL (0.0-0.87); Hematocrit 25.6 VOL% (42.0-52.0); Hemoglobin 8.3 GM/DL (14.0-18.0); Immature Granulocytes % 0.4 %; Immature Granulocytes Absolute 0.02 #; Lymphocytes # 1.6 10*3/uL (1.4-4.0); Lymphocytes % 33.7 % (21.2-54.2); Mean Corpuscular HGB Conc 32.4 GM/DL (32-36); Mean Corpuscular Volume 100.4 FL (87-102); Mean Platelet Volume 10.4 FL (9.6-12.0); Monocytes % 9.5 % (1.7-12.7); Neutrophils % 44.4 % (38.7-73.9); Red Blood Count 2.55 MC/CUMM (3.8-5.5); Red Cell Distribution Width 15.9 % (9.3-17.3); White Blood Count 4.8 T/CUMM (4-12)
[2019-10-12 07:11] LABS: Platelet Count 94 T/CUMM (130-400)
[2019-10-12] MEDS: INSULIN LISPRO 100 UNIT/ML SUBCUT SCH ×4 (08:11→21:21)
[2019-10-12 08:43] LABS: Eosinophils 19 % (0-10); Lymphocytes 22 % (20-55); Segmented Neutrophils 48 % (50-85); Total Cells Counted 100
[2019-10-12 08:44] LABS: Atypical Lymphocytes Few; Hypochromasia 1+; Macrocytosis 1+
[2019-10-12 08:45] LABS: Platelet Estimate Decreased
[2019-10-12] MEDS: MULTIVITAMIN (CENTRUM) TABLET PO SCH (09:09)
[2019-10-12] MEDS: CITALOPRAM 20 MG TABLET PO SCH (09:09)
[2019-10-12] MEDS: LACTULOSE 20 GM/30 ML UDCUP PO SCH ×3 (09:09→21:21)
[2019-10-12] MEDS: guaiFENesin/DM ER 600-30 MG TABLET PO SCH ×2 (09:09→21:21)
[2019-10-12] MEDS: AZITHROMYCIN 250 MG TABLET PO SCH (09:09)
[2019-10-12] MEDS: POTASSIUM CHLORIDE 20 MEQ TABLET PO SCH ×2 (09:09→21:21)
[2019-10-12] MEDS: BENZONATATE 100 MG CAPSULE PO SCH ×3 (09:09→21:21)
[2019-10-12] MEDS: FUROSEMIDE 40 MG TABLET PO SCH ×2 (09:09→21:21)
[2019-10-12] MEDS: FERROUS SULFATE 325 MG TABLET PO SCH (09:09)
[2019-10-12] MEDS: OMEGA 3 ACID ETHYL ESTERS 1 GM CAPSULE PO SCH (09:09)
[2019-10-12] MEDS: RIFAXIMIN 550 MG TABLET PO SCH ×2 (09:09→21:21)
[2019-10-12] MEDS: cefTRIAXone 1,000 MG in SYRINGE 1 EACH IV SCH (09:20)
[2019-10-12] MEDS: glipiZIDE 5 MG TABLET PO SCH (09:21)
[2019-10-12] MEDS: PANTOPRAZOLE 40 MG TABLET PO SCH (09:21)
[2019-10-12] MEDS: DESITIN 4OZ/NYSTATIN 15 GRAM MIXTURE PASTE TOP SCH ×2 (09:21→21:21)
[2019-10-12] MEDS: PANTOPRAZOLE INJ 200 MG in SODIUM CHLORIDE 0.9% 250 ML IV SCH (15:06)
[2019-10-13] MEDS: ALBUTEROL/IPRATROPIUM 3 ML NEB RESP TX SCH ×4 (00:34→19:17)
[2019-10-13 06:33] LABS: Basophils # 0.1 10*3/uL (0.0-0.2); Basophils % 0.8 % (0.0-0.8); Eosinophils # 0.4 10*3/uL (0.0-0.87); Eosinophils % 5.5 % (0.00-10.9); Hematocrit 27.7 VOL% (42.0-52.0); Hemoglobin 8.9 GM/DL (14.0-18.0); Immature Granulocytes % 0.2 %; Immature Granulocytes Absolute 0.01 #; Lymphocytes # 1.3 10*3/uL (1.4-4.0); Lymphocytes % 19.4 % (21.2-54.2); Mean Corpuscular HGB Conc 32.1 GM/DL (32-36); Mean Corpuscular Volume 99.6 FL (87-102); Mean Platelet Volume 9.4 FL (9.6-12.0); Monocytes % 8.9 % (1.7-12.7); Neutrophils % 65.2 % (38.7-73.9); Red Blood Count 2.78 MC/CUMM (3.8-5.5); Red Cell Distribution Width 16.1 % (9.3-17.3)
[2019-10-13 06:41] LABS: Albumin 1.5 G/DL (3.4-5.0); Bilirubin,Total 1.5 MG/DL (0.2-1.0); Calcium 7.8 MG/DL (8.5-10.1); Osmolality,Calculated 282.7 MOS/KG (273-304); Total Protein 5.4 G/DL (6.4-8.3)
[2019-10-13 06:58] LABS: Platelet Count 131 T/CUMM (130-400); White Blood Count 6.5 T/CUMM (4-12)
[2019-10-13] MEDS: INSULIN LISPRO 100 UNIT/ML SUBCUT SCH ×4 (07:37→20:35)
[2019-10-13] MEDS ORDERED: ALBUMIN 5% 25 GM in PREMIX 1 EACH IV ONE (09:00)
[2019-10-13] MEDS: AZITHROMYCIN 250 MG TABLET PO SCH (09:41)
[2019-10-13] MEDS: guaiFENesin/DM ER 600-30 MG TABLET PO SCH ×2 (09:42→20:36)
[2019-10-13] MEDS: RIFAXIMIN 550 MG TABLET PO SCH ×2 (09:42→20:36)
[2019-10-13] MEDS: CITALOPRAM 20 MG TABLET PO SCH (09:42)
[2019-10-13] MEDS: cefTRIAXone 1,000 MG in SYRINGE 1 EACH IV SCH (09:42)
[2019-10-13] MEDS: MULTIVITAMIN (CENTRUM) TABLET PO SCH (09:42)
[2019-10-13] MEDS: OMEGA 3 ACID ETHYL ESTERS 1 GM CAPSULE PO SCH (09:42)
[2019-10-13] MEDS: PANTOPRAZOLE 40 MG TABLET PO SCH (09:42)
[2019-10-13] MEDS: POTASSIUM CHLORIDE 20 MEQ TABLET PO SCH ×2 (09:42→20:36)
[2019-10-13] MEDS: BENZONATATE 100 MG CAPSULE PO SCH ×3 (09:42→20:36)
[2019-10-13] MEDS: glipiZIDE 5 MG TABLET PO SCH (09:42)
[2019-10-13] MEDS: DESITIN 4OZ/NYSTATIN 15 GRAM MIXTURE PASTE TOP SCH ×2 (09:43→20:35)
[2019-10-13] MEDS: FERROUS SULFATE 325 MG TABLET PO SCH (09:43)
[2019-10-13] MEDS: LACTULOSE 20 GM/30 ML UDCUP PO SCH ×3 (12:53→23:50)
[2019-10-13] MEDS: FUROSEMIDE 40 MG/4 ML VIAL IV SCH (17:44)
[2019-10-13] MEDS: HYDROmorphone 2 MG/1 ML VIAL IV PRN ×2 (19:42→22:48)
[2019-10-13] MEDS: PANTOPRAZOLE INJ 200 MG in SODIUM CHLORIDE 0.9% 250 ML IV SCH (20:36)
[2019-10-14] MEDS: ALBUTEROL/IPRATROPIUM 3 ML NEB RESP TX SCH ×4 (00:34→19:42)
[2019-10-14] MEDS: HYDROmorphone 2 MG/1 ML VIAL IV PRN ×2 (02:01→05:03)
[2019-10-14] MEDS: LACTULOSE 20 GM/30 ML UDCUP PO SCH ×3 (05:03→17:53)
[2019-10-14 07:11] LABS: Albumin 1.6 G/DL (3.4-5.0); Bilirubin,Total 1.1 MG/DL (0.2-1.0); Calcium 7.8 MG/DL (8.5-10.1); Osmolality,Calculated 287.1 MOS/KG (273-304); Total Protein 4.9 G/DL (6.4-8.3)
[2019-10-14 07:37] LABS: Basophils % 0.9 % (0.0-0.8); Eosinophils # 0.3 10*3/uL (0.0-0.87); Eosinophils % 6.4 % (0.00-10.9); Hematocrit 25.4 VOL% (42.0-52.0); Hemoglobin 8.1 GM/DL (14.0-18.0); Immature Granulocytes % 0.2 %; Immature Granulocytes Absolute 0.01 #; Lymphocytes # 1.2 10*3/uL (1.4-4.0); Lymphocytes % 25.8 % (21.2-54.2); Mean Corpuscular HGB Conc 31.9 GM/DL (32-36); Mean Platelet Volume 9.3 FL (9.6-12.0); Monocytes % 10.9 % (1.7-12.7); Neutrophils % 55.8 % (38.7-73.9); Platelet Count 101 T/CUMM (130-400); Red Blood Count 2.49 MC/CUMM (3.8-5.5); Red Cell Distribution Width 15.9 % (9.3-17.3); White Blood Count 4.7 T/CUMM (4-12)
[2019-10-14 08:08] LABS: Platelet Estimate Adequate
[2019-10-14 08:10] LABS: Anisocytosis 1+
[2019-10-14] MEDS: INSULIN LISPRO 100 UNIT/ML SUBCUT SCH ×4 (08:53→21:23)
[2019-10-14] MEDS: FUROSEMIDE 40 MG/4 ML VIAL IV SCH ×2 (09:47→15:12)
[2019-10-14] MEDS: cefTRIAXone 1,000 MG in SYRINGE 1 EACH IV SCH (09:48)
[2019-10-14] MEDS: BENZONATATE 100 MG CAPSULE PO SCH ×3 (09:50→21:22)
[2019-10-14] MEDS: MULTIVITAMIN (CENTRUM) TABLET PO SCH (09:51)
[2019-10-14] MEDS: glipiZIDE 5 MG TABLET PO SCH (09:51)
[2019-10-14] MEDS: guaiFENesin/DM ER 600-30 MG TABLET PO SCH ×2 (09:51→21:22)
[2019-10-14] MEDS: CITALOPRAM 20 MG TABLET PO SCH (09:51)
[2019-10-14] MEDS: OMEGA 3 ACID ETHYL ESTERS 1 GM CAPSULE PO SCH (09:51)
[2019-10-14] MEDS: POTASSIUM CHLORIDE 20 MEQ TABLET PO SCH ×2 (09:51→21:22)
[2019-10-14] MEDS: AZITHROMYCIN 250 MG TABLET PO SCH (09:52)
[2019-10-14] MEDS: PANTOPRAZOLE 40 MG TABLET PO SCH (09:52)
[2019-10-14] MEDS: RIFAXIMIN 550 MG TABLET PO SCH ×2 (09:53→21:25)
[2019-10-14] MEDS: FERROUS SULFATE 325 MG TABLET PO SCH (09:53)
[2019-10-14] MEDS: DESITIN 4OZ/NYSTATIN 15 GRAM MIXTURE PASTE TOP SCH ×2 (10:05→21:23)
[2019-10-14] MEDS: DEXTROSE 10% 250 ML BAG IV PRN (12:36)
[2019-10-14] MEDS ORDERED: HYDROmorphone 2 MG/1 ML VIAL IV PRN (16:19)
[2019-10-15] MEDS: ALBUTEROL/IPRATROPIUM 3 ML NEB RESP TX SCH ×4 (00:30→20:10)
[2019-10-15] MEDS: LACTULOSE 20 GM/30 ML UDCUP PO SCH ×4 (00:32→18:49)
[2019-10-15 04:33] LABS: Basophils % 0.8 % (0.0-0.8); Eosinophils # 0.3 10*3/uL (0.0-0.87); Eosinophils % 5.1 % (0.00-10.9); Hematocrit 24.6 VOL% (42.0-52.0); Hemoglobin 7.7 GM/DL (14.0-18.0); Immature Granulocytes % 0.4 %; Immature Granulocytes Absolute 0.02 #; Lymphocytes # 1.3 10*3/uL (1.4-4.0); Lymphocytes % 24.1 % (21.2-54.2); Mean Corpuscular HGB Conc 31.3 GM/DL (32-36); Mean Corpuscular Volume 102.1 FL (87-102); Mean Platelet Volume 10.1 FL (9.6-12.0); Neutrophils % 61.6 % (38.7-73.9); Red Blood Count 2.41 MC/CUMM (3.8-5.5); Red Cell Distribution Width 15.9 % (9.3-17.3); White Blood Count 5.3 T/CUMM (4-12)
[2019-10-15 04:36] LABS: Platelet Count 89 T/CUMM (130-400)
[2019-10-15 04:55] LABS: Alanine Aminotransferase < 9 U/L (16-61); Albumin 1.7 G/DL (3.4-5.0); Alkaline Phosphatase 117 U/L (45-117); Aspartate Amino Transferase 35 U/L (0-37); Blood Urea Nitrogen 31 MG/DL (7-18); Calcium 7.9 MG/DL (8.5-10.1); Estimated Glom Filtration Rate 36 ML/MIN; Glucose 68 MG/DL (74-106); Total Protein 5.2 G/DL (6.4-8.3)
[2019-10-15 05:34] LABS: Hypochromasia Slight; Macrocytosis Slight; Ovalocytes Slight; Platelet Estimate Decreased
[2019-10-15] MEDS: INSULIN LISPRO 100 UNIT/ML SUBCUT SCH ×4 (08:38→21:12)
[2019-10-15 09:11] LABS: INR 1.7; PT Patient Result 17.3 SECS (9.8-11.9)
[2019-10-15] MEDS: DESITIN 4OZ/NYSTATIN 15 GRAM MIXTURE PASTE TOP SCH ×2 (09:24→21:13)
[2019-10-15] MEDS: DEXTROSE 10% 250 ML BAG IV PRN ×2 (09:25→20:16)
[2019-10-15] MEDS: FUROSEMIDE 40 MG/4 ML VIAL IV SCH ×2 (09:30→16:06)
[2019-10-15] MEDS: RIFAXIMIN 550 MG TABLET PO SCH ×2 (09:31→21:13)
[2019-10-15] MEDS: guaiFENesin/DM ER 600-30 MG TABLET PO SCH ×2 (09:31→21:13)
[2019-10-15] MEDS: cefTRIAXone 1,000 MG in SYRINGE 1 EACH IV SCH (09:31)
[2019-10-15] MEDS: glipiZIDE 5 MG TABLET PO SCH (09:32)
[2019-10-15] MEDS: FERROUS SULFATE 325 MG TABLET PO SCH (09:32)
[2019-10-15] MEDS: OMEGA 3 ACID ETHYL ESTERS 1 GM CAPSULE PO SCH (09:32)
[2019-10-15] MEDS: CITALOPRAM 20 MG TABLET PO SCH (09:32)
[2019-10-15] MEDS: BENZONATATE 100 MG CAPSULE PO SCH ×3 (09:32→21:13)
[2019-10-15] MEDS: MULTIVITAMIN (CENTRUM) TABLET PO SCH (09:32)
[2019-10-15] MEDS: PANTOPRAZOLE 40 MG TABLET PO SCH (09:33)
[2019-10-15] MEDS: POTASSIUM CHLORIDE 20 MEQ TABLET PO SCH ×2 (09:33→21:13)
[2019-10-15 10:19] LABS: ABG Base Excess 2.6 MMOL/L (-2.5-2.5); ABG HCO3 26.7 MMOL/L (20-26); ABG Oxygen Saturation 97.6 % (95-100); ABG PCO2 32.5 MM HG (35-48); ABG PH 7.503 (7.35-7.45); ABG PO2 81.5 MM HG (80-95); ABG TCO2 23.8 MMOL/L (23-27)
[2019-10-15] MEDS ORDERED: ALBUMIN 25% 50 GM in PREMIX 1 EACH IV ONE (10:30)
[2019-10-15 15:25] LABS: Glucose,Peritoneal Fluid 86 MG/DL; LDH,Peritoneal Fluid 45 U/L; Total Protein,Peritoneal Fluid < 1.0 G/DL
[2019-10-15 16:12] LABS: Neutrophils,Peritoneal Fluid 12 %
[2019-10-15 16:14] LABS: RBC,Peritoneal Fluid 18 T/CUMM
[2019-10-16] MEDS: LACTULOSE 20 GM/30 ML UDCUP PO SCH ×4 (00:05→18:18)
[2019-10-16] MEDS: ALBUTEROL/IPRATROPIUM 3 ML NEB RESP TX SCH ×4 (00:55→19:25)
[2019-10-16 04:19] LABS: Basophils % 0.3 % (0.0-0.8); Eosinophils # 0.2 10*3/uL (0.0-0.87); Eosinophils % 6.2 % (0.00-10.9); Hematocrit 22.5 VOL% (42.0-52.0); Hemoglobin 7.2 GM/DL (14.0-18.0); Immature Granulocytes % 0.6 %; Immature Granulocytes Absolute 0.02 #; Lymphocytes # 0.8 10*3/uL (1.4-4.0); Lymphocytes % 21.8 % (21.2-54.2); Mean Corpuscular Volume 100.9 FL (87-102); Monocytes % 7.6 % (1.7-12.7); Neutrophils % 63.5 % (38.7-73.9); Red Blood Count 2.23 MC/CUMM (3.8-5.5); Red Cell Distribution Width 15.9 % (9.3-17.3); White Blood Count 3.5 T/CUMM (4-12)
[2019-10-16 04:22] LABS: Platelet Count 88 T/CUMM (130-400)
[2019-10-16 04:37] LABS: Calcium 7.8 MG/DL (8.5-10.1); Osmolality,Calculated 290.8 MOS/KG (273-304)
[2019-10-16] MEDS: INSULIN LISPRO 100 UNIT/ML SUBCUT SCH ×4 (08:34→21:46)
[2019-10-16] MEDS: FUROSEMIDE 40 MG/4 ML VIAL IV SCH ×2 (09:40→16:45)
[2019-10-16] MEDS: cefTRIAXone 1,000 MG in SYRINGE 1 EACH IV SCH (09:40)
[2019-10-16] MEDS: FERROUS SULFATE 325 MG TABLET PO SCH (09:41)
[2019-10-16] MEDS: PANTOPRAZOLE 40 MG TABLET PO SCH (09:41)
[2019-10-16] MEDS: RIFAXIMIN 550 MG TABLET PO SCH ×2 (09:41→22:04)
[2019-10-16] MEDS: BENZONATATE 100 MG CAPSULE PO SCH ×3 (09:41→22:04)
[2019-10-16] MEDS: MULTIVITAMIN (CENTRUM) TABLET PO SCH (09:41)
[2019-10-16] MEDS: guaiFENesin/DM ER 600-30 MG TABLET PO SCH ×2 (09:41→22:04)
[2019-10-16] MEDS: OMEGA 3 ACID ETHYL ESTERS 1 GM CAPSULE PO SCH (09:41)
[2019-10-16] MEDS: CITALOPRAM 20 MG TABLET PO SCH (09:42)
[2019-10-16] MEDS: glipiZIDE 5 MG TABLET PO SCH ×2 (09:42→09:43)
[2019-10-16] MEDS: DESITIN 4OZ/NYSTATIN 15 GRAM MIXTURE PASTE TOP SCH ×2 (09:42→22:05)
[2019-10-16] MEDS: POTASSIUM CHLORIDE 20 MEQ TABLET PO SCH ×2 (09:42→22:04)
[2019-10-16 13:30] LABS: % Iron Saturation 31.4 % (18-50); Ferritin 69.9 ng/ml (26-388)
[2019-10-16 13:37] LABS: Folate 10.3 NG/ML (5.4-24.0)
[2019-10-17] MEDS: ALBUTEROL/IPRATROPIUM 3 ML NEB RESP TX SCH ×4 (00:19→19:15)
[2019-10-17] MEDS: LACTULOSE 20 GM/30 ML UDCUP PO SCH ×4 (01:31→18:33)
[2019-10-17 04:51] LABS: Basophils % 0.6 % (0.0-0.8); Eosinophils # 0.3 10*3/uL (0.0-0.87); Eosinophils % 6.4 % (0.00-10.9); Hematocrit 23.5 VOL% (42.0-52.0); Hemoglobin 7.6 GM/DL (14.0-18.0); Immature Granulocytes % 0.2 %; Immature Granulocytes Absolute 0.01 #; Lymphocytes # 1.3 10*3/uL (1.4-4.0); Lymphocytes % 26.1 % (21.2-54.2); Mean Corpuscular HGB Conc 32.3 GM/DL (32-36); Mean Corpuscular Volume 100.9 FL (87-102); Mean Platelet Volume 9.2 FL (9.6-12.0); Monocytes % 10.4 % (1.7-12.7); Neutrophils % 56.3 % (38.7-73.9); Red Blood Count 2.33 MC/CUMM (3.8-5.5)
[2019-10-17 04:52] LABS: Platelet Count 112 T/CUMM (130-400)
[2019-10-17 04:56] LABS: INR 1.8; PT Patient Result 18.6 SECS (9.8-11.9)
[2019-10-17 05:01] LABS: Calcium 7.7 MG/DL (8.5-10.1); Osmolality,Calculated 294.6 MOS/KG (273-304)
[2019-10-17] MEDS ORDERED: POTASSIUM CHLORIDE 20 MEQ TABLET PO PRN (05:19)
[2019-10-17] MEDS: POTASSIUM CHLORIDE RIDER 10 MEQ in PREMIX 1 EACH IV PRN ×5 (06:05→12:00)
[2019-10-17] MEDS: cefTRIAXone 1,000 MG in SYRINGE 1 EACH IV SCH (08:55)
[2019-10-17] MEDS: FUROSEMIDE 40 MG/4 ML VIAL IV SCH ×2 (08:55→16:27)
[2019-10-17] MEDS: DESITIN 4OZ/NYSTATIN 15 GRAM MIXTURE PASTE TOP SCH ×2 (08:59→20:47)
[2019-10-17] MEDS: INSULIN LISPRO 100 UNIT/ML SUBCUT SCH ×4 (10:30→22:19)
[2019-10-17] MEDS: BENZONATATE 100 MG CAPSULE PO SCH ×3 (15:53→20:47)
[2019-10-17] MEDS: guaiFENesin/DM ER 600-30 MG TABLET PO SCH ×2 (16:27→20:47)
[2019-10-17] MEDS: PANTOPRAZOLE 40 MG TABLET PO SCH (16:28)
[2019-10-17] MEDS: CITALOPRAM 20 MG TABLET PO SCH (16:28)
[2019-10-17] MEDS: FERROUS SULFATE 325 MG TABLET PO SCH (16:28)
[2019-10-17] MEDS: glipiZIDE 5 MG TABLET PO SCH (16:29)
[2019-10-17] MEDS: MULTIVITAMIN (CENTRUM) TABLET PO SCH (16:29)
[2019-10-17] MEDS: POTASSIUM CHLORIDE 20 MEQ TABLET PO SCH ×2 (16:29→20:46)
[2019-10-17] MEDS: OMEGA 3 ACID ETHYL ESTERS 1 GM CAPSULE PO SCH (16:29)
[2019-10-17] MEDS: RIFAXIMIN 550 MG TABLET PO SCH ×2 (17:26→20:46)
[2019-10-18] MEDS: LACTULOSE 20 GM/30 ML UDCUP PO SCH ×4 (00:10→18:41)
[2019-10-18] MEDS: ALBUTEROL/IPRATROPIUM 3 ML NEB RESP TX SCH ×4 (00:14→20:10)
[2019-10-18 08:25] LABS: Basophils % 0.7 % (0.0-0.8); Eosinophils # 0.3 10*3/uL (0.0-0.87); Eosinophils % 7.5 % (0.00-10.9); Hematocrit 25.8 VOL% (42.0-52.0); Hemoglobin 8.3 GM/DL (14.0-18.0); Immature Granulocytes % 0.2 %; Immature Granulocytes Absolute 0.01 #; Lymphocytes # 1.3 10*3/uL (1.4-4.0); Lymphocytes % 31.3 % (21.2-54.2); Mean Corpuscular HGB Conc 32.2 GM/DL (32-36); Mean Corpuscular Volume 99.2 FL (87-102); Mean Platelet Volume 8.9 FL (9.6-12.0); Monocytes % 9.2 % (1.7-12.7); Neutrophils % 51.1 % (38.7-73.9)
[2019-10-18 08:26] LABS: Platelet Count 91 T/CUMM (130-400)
[2019-10-18 08:42] LABS: Albumin 1.7 G/DL (3.4-5.0); Bilirubin,Total 2.2 MG/DL (0.2-1.0); Calcium 7.8 MG/DL (8.5-10.1); Osmolality,Calculated 295.6 MOS/KG (273-304); Total Protein 5.1 G/DL (6.4-8.3)
[2019-10-18 08:47] LABS: Hypochromasia 1+; Microcytosis 1+; Platelet Estimate Decreased
[2019-10-18] MEDS: MULTIVITAMIN (CENTRUM) TABLET PO SCH (09:13)
[2019-10-18] MEDS: OMEGA 3 ACID ETHYL ESTERS 1 GM CAPSULE PO SCH (09:13)
[2019-10-18] MEDS: POTASSIUM CHLORIDE 20 MEQ TABLET PO SCH ×2 (09:13→21:17)
[2019-10-18] MEDS: BENZONATATE 100 MG CAPSULE PO SCH ×3 (09:13→21:17)
[2019-10-18] MEDS: FUROSEMIDE 40 MG/4 ML VIAL IV SCH ×2 (09:14→17:01)
[2019-10-18] MEDS: DESITIN 4OZ/NYSTATIN 15 GRAM MIXTURE PASTE TOP SCH ×2 (09:14→21:17)
[2019-10-18] MEDS: CITALOPRAM 20 MG TABLET PO SCH (09:14)
[2019-10-18] MEDS: cefTRIAXone 1,000 MG in SYRINGE 1 EACH IV SCH (09:14)
[2019-10-18] MEDS: FERROUS SULFATE 325 MG TABLET PO SCH (09:14)
[2019-10-18] MEDS: glipiZIDE 5 MG TABLET PO SCH (09:14)
[2019-10-18] MEDS: guaiFENesin/DM ER 600-30 MG TABLET PO SCH ×2 (09:14→21:17)
[2019-10-18] MEDS: PANTOPRAZOLE 40 MG TABLET PO SCH (09:14)
[2019-10-18] MEDS: INSULIN LISPRO 100 UNIT/ML SUBCUT SCH ×4 (10:41→21:17)
[2019-10-19] MEDS: LACTULOSE 20 GM/30 ML UDCUP PO SCH ×5 (00:34→23:02)
[2019-10-19] MEDS: ALBUTEROL/IPRATROPIUM 3 ML NEB RESP TX SCH ×4 (01:40→21:03)
[2019-10-19 06:07] LABS: Basophils % 0.7 % (0.0-0.8); Eosinophils # 0.3 10*3/uL (0.0-0.87); Eosinophils % 8.4 % (0.00-10.9); Hematocrit 25.4 VOL% (42.0-52.0); Lymphocytes # 1.5 10*3/uL (1.4-4.0); Lymphocytes % 36.2 % (21.2-54.2); Mean Corpuscular HGB Conc 31.5 GM/DL (32-36); Mean Corpuscular Volume 100.4 FL (87-102); Mean Platelet Volume 9.2 FL (9.6-12.0); Monocytes % 10.6 % (1.7-12.7); Neutrophils % 44.1 % (38.7-73.9); Platelet Count 83 T/CUMM (130-400); Red Blood Count 2.53 MC/CUMM (3.8-5.5); Red Cell Distribution Width 15.2 % (9.3-17.3); White Blood Count 4.1 T/CUMM (4-12)
[2019-10-19 06:44] LABS: Albumin 1.6 G/DL (3.4-5.0); Bilirubin,Total 1.6 MG/DL (0.2-1.0); Calcium 7.6 MG/DL (8.5-10.1); Total Protein 4.7 G/DL (6.4-8.3)
[2019-10-19] MEDS: INSULIN LISPRO 100 UNIT/ML SUBCUT SCH ×4 (08:25→21:22)
[2019-10-19] MEDS: BENZONATATE 100 MG CAPSULE PO SCH ×3 (08:50→21:22)
[2019-10-19] MEDS: guaiFENesin/DM ER 600-30 MG TABLET PO SCH ×2 (08:50→21:22)
[2019-10-19] MEDS: MULTIVITAMIN (CENTRUM) TABLET PO SCH (08:51)
[2019-10-19] MEDS: glipiZIDE 5 MG TABLET PO SCH (08:51)
[2019-10-19] MEDS: FERROUS SULFATE 325 MG TABLET PO SCH (08:51)
[2019-10-19] MEDS: CITALOPRAM 20 MG TABLET PO SCH (08:51)
[2019-10-19] MEDS: OMEGA 3 ACID ETHYL ESTERS 1 GM CAPSULE PO SCH (08:51)
[2019-10-19] MEDS: POTASSIUM CHLORIDE 20 MEQ TABLET PO SCH ×2 (08:51→21:23)
[2019-10-19] MEDS: PANTOPRAZOLE 40 MG TABLET PO SCH (08:51)
[2019-10-19] MEDS: FUROSEMIDE 40 MG/4 ML VIAL IV SCH ×2 (09:40→18:01)
[2019-10-19] MEDS: DESITIN 4OZ/NYSTATIN 15 GRAM MIXTURE PASTE TOP SCH ×2 (11:03→21:23)
[2019-10-19 11:37] LABS: Polychromasia Slight
[2019-10-19 11:38] LABS: Platelet Estimate Adequate
[2019-10-20] MEDS: ALBUTEROL/IPRATROPIUM 3 ML NEB RESP TX SCH ×4 (01:35→19:43)
[2019-10-20 03:41] LABS: Basophils # 0.1 10*3/uL (0.0-0.2); Basophils % 0.9 % (0.0-0.8); Eosinophils # 0.5 10*3/uL (0.0-0.87); Eosinophils % 9.2 % (0.00-10.9); Hematocrit 27.5 VOL% (42.0-52.0); Hemoglobin 8.6 GM/DL (14.0-18.0); Immature Granulocytes % 0.2 %; Immature Granulocytes Absolute 0.01 #; Lymphocytes # 1.7 10*3/uL (1.4-4.0); Mean Corpuscular HGB Conc 31.3 GM/DL (32-36); Mean Corpuscular Volume 100.7 FL (87-102); Mean Platelet Volume 9.2 FL (9.6-12.0); Monocytes % 11.8 % (1.7-12.7); Neutrophils % 45.9 % (38.7-73.9); Platelet Count 93 T/CUMM (130-400); Red Blood Count 2.73 MC/CUMM (3.8-5.5); Red Cell Distribution Width 15.5 % (9.3-17.3); White Blood Count 5.4 T/CUMM (4-12)
[2019-10-20 04:28] LABS: Albumin 1.7 G/DL (3.4-5.0); Bilirubin,Total 1.4 MG/DL (0.2-1.0); Calcium 7.4 MG/DL (8.5-10.1); Osmolality,Calculated 285.1 MOS/KG (273-304)
[2019-10-20 05:33] LABS: Eosinophils 8 % (0-10); Lymphocytes 32 % (20-55); Segmented Neutrophils 58 % (50-85); Total Cells Counted 100
[2019-10-20 05:34] LABS: Anisocytosis 1+; Platelet Estimate Decreased
[2019-10-20] MEDS: LACTULOSE 20 GM/30 ML UDCUP PO SCH ×4 (05:36→23:41)
[2019-10-20] MEDS: INSULIN LISPRO 100 UNIT/ML SUBCUT SCH ×4 (08:08→20:32)
[2019-10-20] MEDS: POTASSIUM CHLORIDE 20 MEQ TABLET PO SCH ×2 (08:53→20:35)
[2019-10-20] MEDS: MULTIVITAMIN (CENTRUM) TABLET PO SCH (08:53)
[2019-10-20] MEDS: guaiFENesin/DM ER 600-30 MG TABLET PO SCH ×2 (08:53→20:35)
[2019-10-20] MEDS: OMEGA 3 ACID ETHYL ESTERS 1 GM CAPSULE PO SCH (08:54)
[2019-10-20] MEDS: BENZONATATE 100 MG CAPSULE PO SCH ×3 (08:54→20:35)
[2019-10-20] MEDS: glipiZIDE 5 MG TABLET PO SCH (08:54)
[2019-10-20] MEDS: FERROUS SULFATE 325 MG TABLET PO SCH (08:54)
[2019-10-20] MEDS: CITALOPRAM 20 MG TABLET PO SCH (08:54)
[2019-10-20] MEDS: PANTOPRAZOLE 40 MG TABLET PO SCH (08:54)
[2019-10-20] MEDS: DESITIN 4OZ/NYSTATIN 15 GRAM MIXTURE PASTE TOP SCH ×2 (12:10→20:37)
[2019-10-20] MEDS ORDERED: cefTRIAXone 1,000 MG in SYRINGE 1 EACH IV SCH (13:00)
[2019-10-20] MEDS: FUROSEMIDE 40 MG/4 ML VIAL IV SCH ×2 (13:50→16:33)
[2019-10-21] MEDS: ALBUTEROL/IPRATROPIUM 3 ML NEB RESP TX SCH ×3 (00:05→20:08)
[2019-10-21] MEDS: LACTULOSE 20 GM/30 ML UDCUP PO SCH ×3 (05:35→19:13)
[2019-10-21] MEDS: OMEGA 3 ACID ETHYL ESTERS 1 GM CAPSULE PO SCH (08:58)
[2019-10-21] MEDS: glipiZIDE 5 MG TABLET PO SCH (08:58)
[2019-10-21] MEDS: MULTIVITAMIN (CENTRUM) TABLET PO SCH (08:58)
[2019-10-21] MEDS: BENZONATATE 100 MG CAPSULE PO SCH ×3 (08:58→20:14)
[2019-10-21] MEDS: guaiFENesin/DM ER 600-30 MG TABLET PO SCH ×2 (08:58→20:14)
[2019-10-21] MEDS: PANTOPRAZOLE 40 MG TABLET PO SCH (08:58)
[2019-10-21] MEDS: INSULIN LISPRO 100 UNIT/ML SUBCUT SCH ×4 (08:58→20:12)
[2019-10-21] MEDS: CITALOPRAM 20 MG TABLET PO SCH (08:58)
[2019-10-21] MEDS: FUROSEMIDE 40 MG/4 ML VIAL IV SCH ×2 (08:58→15:46)
[2019-10-21] MEDS: POTASSIUM CHLORIDE 20 MEQ TABLET PO SCH ×2 (08:58→20:14)
[2019-10-21] MEDS: FERROUS SULFATE 325 MG TABLET PO SCH (08:58)
[2019-10-21] MEDS: DESITIN 4OZ/NYSTATIN 15 GRAM MIXTURE PASTE TOP SCH ×2 (08:59→20:14)
[2019-10-22] MEDS: LACTULOSE 20 GM/30 ML UDCUP PO SCH ×5 (00:19→23:55)
[2019-10-22] MEDS: ALBUTEROL/IPRATROPIUM 3 ML NEB RESP TX SCH ×5 (01:08→19:25)
[2019-10-22 06:56] LABS: Calcium 7.5 MG/DL (8.5-10.1); Osmolality,Calculated 278.4 MOS/KG (273-304)
[2019-10-22] MEDS: INSULIN LISPRO 100 UNIT/ML SUBCUT SCH ×4 (07:55→20:23)
[2019-10-22] MEDS: guaiFENesin/DM ER 600-30 MG TABLET PO SCH ×2 (09:38→20:18)
[2019-10-22] MEDS: OMEGA 3 ACID ETHYL ESTERS 1 GM CAPSULE PO SCH (09:38)
[2019-10-22] MEDS: PANTOPRAZOLE 40 MG TABLET PO SCH (09:38)
[2019-10-22] MEDS: BENZONATATE 100 MG CAPSULE PO SCH ×3 (09:38→20:18)
[2019-10-22] MEDS: FUROSEMIDE 40 MG/4 ML VIAL IV SCH ×2 (09:38→15:37)
[2019-10-22] MEDS: MULTIVITAMIN (CENTRUM) TABLET PO SCH (09:38)
[2019-10-22] MEDS: FERROUS SULFATE 325 MG TABLET PO SCH (09:38)
[2019-10-22] MEDS: DESITIN 4OZ/NYSTATIN 15 GRAM MIXTURE PASTE TOP SCH ×2 (09:39→20:22)
[2019-10-22] MEDS: CITALOPRAM 20 MG TABLET PO SCH (09:39)
[2019-10-22] MEDS: POTASSIUM CHLORIDE 20 MEQ TABLET PO SCH ×2 (09:39→20:18)
[2019-10-22] MEDS: glipiZIDE 5 MG TABLET PO SCH (09:39)
[2019-10-23] MEDS: ALBUTEROL/IPRATROPIUM 3 ML NEB RESP TX SCH ×4 (01:43→19:13)
[2019-10-23] MEDS: LACTULOSE 20 GM/30 ML UDCUP PO SCH ×3 (05:30→17:29)
[2019-10-23] MEDS: INSULIN LISPRO 100 UNIT/ML SUBCUT SCH ×4 (07:41→21:19)
[2019-10-23] MEDS: FUROSEMIDE 40 MG/4 ML VIAL IV SCH ×2 (08:43→16:40)
[2019-10-23] MEDS: POTASSIUM CHLORIDE 20 MEQ TABLET PO SCH ×2 (08:44→21:17)
[2019-10-23] MEDS: FERROUS SULFATE 325 MG TABLET PO SCH (08:44)
[2019-10-23] MEDS: BENZONATATE 100 MG CAPSULE PO SCH ×3 (08:44→21:17)
[2019-10-23] MEDS: MULTIVITAMIN (CENTRUM) TABLET PO SCH (08:44)
[2019-10-23] MEDS: OMEGA 3 ACID ETHYL ESTERS 1 GM CAPSULE PO SCH (08:44)
[2019-10-23] MEDS: glipiZIDE 5 MG TABLET PO SCH (08:44)
[2019-10-23] MEDS: guaiFENesin/DM ER 600-30 MG TABLET PO SCH ×2 (08:44→21:19)
[2019-10-23] MEDS: CITALOPRAM 20 MG TABLET PO SCH (08:44)
[2019-10-23] MEDS: PANTOPRAZOLE 40 MG TABLET PO SCH (08:44)
[2019-10-23] MEDS: DESITIN 4OZ/NYSTATIN 15 GRAM MIXTURE PASTE TOP SCH ×2 (08:47→23:09)
[2019-10-24] MEDS: ALBUTEROL/IPRATROPIUM 3 ML NEB RESP TX SCH ×4 (00:24→19:18)
[2019-10-24] MEDS: LACTULOSE 20 GM/30 ML UDCUP PO SCH ×3 (00:59→21:01)
[2019-10-24] MEDS: DEXTROSE 10% 250 ML BAG IV PRN (07:52)
[2019-10-24] MEDS: FUROSEMIDE 40 MG/4 ML VIAL IV SCH ×2 (08:58→16:09)
[2019-10-24] MEDS: guaiFENesin/DM ER 600-30 MG TABLET PO SCH ×2 (08:59→21:02)
[2019-10-24] MEDS: FERROUS SULFATE 325 MG TABLET PO SCH (08:59)
[2019-10-24] MEDS: POTASSIUM CHLORIDE 20 MEQ TABLET PO SCH ×2 (08:59→21:02)
[2019-10-24] MEDS: MULTIVITAMIN (CENTRUM) TABLET PO SCH (08:59)
[2019-10-24] MEDS: CITALOPRAM 20 MG TABLET PO SCH (08:59)
[2019-10-24] MEDS: BENZONATATE 100 MG CAPSULE PO SCH ×3 (08:59→21:02)
[2019-10-24] MEDS: OMEGA 3 ACID ETHYL ESTERS 1 GM CAPSULE PO SCH (08:59)
[2019-10-24] MEDS: PANTOPRAZOLE 40 MG TABLET PO SCH (08:59)
[2019-10-24] MEDS: DESITIN 4OZ/NYSTATIN 15 GRAM MIXTURE PASTE TOP SCH ×2 (09:00→21:03)
[2019-10-24] MEDS: INSULIN LISPRO 100 UNIT/ML SUBCUT SCH ×4 (09:01→21:03)
[2019-10-25] MEDS: ALBUTEROL/IPRATROPIUM 3 ML NEB RESP TX SCH ×3 (00:11→12:41)
[2019-10-25 06:45] LABS: Calcium 7.3 MG/DL (8.5-10.1); Osmolality,Calculated 277.5 MOS/KG (273-304)
[2019-10-25] MEDS: INSULIN LISPRO 100 UNIT/ML SUBCUT SCH ×2 (09:34→12:55)
[2019-10-25] MEDS: FERROUS SULFATE 325 MG TABLET PO SCH (09:36)
[2019-10-25] MEDS: BENZONATATE 100 MG CAPSULE PO SCH ×2 (09:36→16:48)
[2019-10-25] MEDS: FUROSEMIDE 40 MG/4 ML VIAL IV SCH (09:36)
[2019-10-25] MEDS: guaiFENesin/DM ER 600-30 MG TABLET PO SCH (09:36)
[2019-10-25] MEDS: OMEGA 3 ACID ETHYL ESTERS 1 GM CAPSULE PO SCH (09:36)
[2019-10-25] MEDS: POTASSIUM CHLORIDE 20 MEQ TABLET PO SCH (09:36)
[2019-10-25] MEDS: CITALOPRAM 20 MG TABLET PO SCH (09:36)
[2019-10-25] MEDS: PANTOPRAZOLE 40 MG TABLET PO SCH (09:36)
[2019-10-25] MEDS: LACTULOSE 20 GM/30 ML UDCUP PO SCH (09:36)
[2019-10-25] MEDS: MULTIVITAMIN (CENTRUM) TABLET PO SCH (09:36)
[2019-10-25] MEDS: DESITIN 4OZ/NYSTATIN 15 GRAM MIXTURE PASTE TOP SCH (09:37)
[2019-10-25 12:58] VITALS: BP 113/50
== END 2019-10-25 16:15 | disposition home health service (06) | DRG 368 ==
LOC: EDUNIT# → EDBD → N.ED 10:59 → N.EDINP 13:06 → SUATTDRO 13:06 → N.EDINP 16:59 → N.TELEN 17:09 → N.4E 10-20 19:00
PROVIDERS: ADMIT Internal Medicine; ATTEND Internal Medicine

== ENCOUNTER 2019-11-01 16:03 | Inpatient (IN) ==
[2019-11-01] MEDS ORDERED: PANTOPRAZOLE 40 MG VIAL IV STA (16:24)
[2019-11-01 16:52] LABS: Basophils % 0.6 % (0.0-0.8); Eosinophils # 0.3 10*3/uL (0.0-0.87); Eosinophils % 6.6 % (0.00-10.9); Hematocrit 25.4 VOL% (42.0-52.0); Hemoglobin 8.2 GM/DL (14.0-18.0); Immature Granulocytes % 0.2 %; Immature Granulocytes Absolute 0.01 #; Lymphocytes # 1.4 10*3/uL (1.4-4.0); Lymphocytes % 30.5 % (21.2-54.2); Mean Corpuscular HGB Conc 32.3 GM/DL (32-36); Mean Corpuscular Volume 99.2 FL (87-102); Mean Platelet Volume 9.1 FL (9.6-12.0); Monocytes % 10.2 % (1.7-12.7); Neutrophils % 51.9 % (38.7-73.9); Platelet Count 100 T/CUMM (130-400); Red Blood Count 2.56 MC/CUMM (3.8-5.5); Red Cell Distribution Width 14.9 % (9.3-17.3); White Blood Count 4.7 T/CUMM (4-12)
[2019-11-01 17:01] LABS: Albumin 1.6 G/DL (3.4-5.0); Bilirubin,Total 1.2 MG/DL (0.2-1.0); Calcium 7.7 MG/DL (8.5-10.1); Osmolality,Calculated 283.4 MOS/KG (273-304); Total Protein 5.2 G/DL (6.4-8.3)
[2019-11-01 17:03] LABS: INR 1.5; PT Patient Result 16.2 SECS (9.8-11.9)
[2019-11-01] MEDS ORDERED: GLUCAGON 1 MG VIAL IM PRN (17:48)
[2019-11-01] MEDS ORDERED: DEXTROSE 50% 25 GM/50 ML VIAL IV PRN (17:48)
[2019-11-01] MEDS ORDERED: ALBUTEROL/IPRATROPIUM 3 ML NEB RESP TX PRN (17:48)
[2019-11-01] MEDS: SODIUM CHLORIDE 0.9% 1,000 ML IV SCH (19:10)
[2019-11-01 20:12] LABS: Hemoglobin 8.4 GM/DL (14.0-18.0)
[2019-11-01] MEDS: INSULIN LISPRO 100 UNIT/ML SUBCUT SCH (23:30)
[2019-11-02 02:25] LABS: Basophils % 0.8 % (0.0-0.8); Eosinophils # 0.4 10*3/uL (0.0-0.87); Eosinophils % 10.5 % (0.00-10.9); Hematocrit 24.6 VOL% (42.0-52.0); Hemoglobin 7.8 GM/DL (14.0-18.0); Lymphocytes # 1.5 10*3/uL (1.4-4.0); Lymphocytes % 40.2 % (21.2-54.2); Mean Corpuscular HGB Conc 31.7 GM/DL (32-36); Mean Corpuscular Volume 99.6 FL (87-102); Mean Platelet Volume 8.7 FL (9.6-12.0); Monocytes % 9.4 % (1.7-12.7); Neutrophils % 39.1 % (38.7-73.9); Platelet Count 63 T/CUMM (130-400); Red Blood Count 2.47 MC/CUMM (3.8-5.5); Red Cell Distribution Width 15.2 % (9.3-17.3); White Blood Count 3.6 T/CUMM (4-12)
[2019-11-02 02:37] LABS: INR 1.8; PT Patient Result 19.1 SECS (9.8-11.9)
[2019-11-02 02:46] LABS: Albumin 1.5 G/DL (3.4-5.0); Bilirubin,Total 1.3 MG/DL (0.2-1.0); Calcium 7.7 MG/DL (8.5-10.1); Osmolality,Calculated 283.1 MOS/KG (273-304); Thyroid Stimulating Hormone 2.87 uIU/ml (0.358-3.74); Total Protein 4.9 G/DL (6.4-8.3)
[2019-11-02 03:11] LABS: Eosinophils 6 % (0-10); Lymphocytes 46 % (20-55); Segmented Neutrophils 45 % (50-85); Total Cells Counted 100
[2019-11-02 03:12] LABS: Anisocytosis 1+; Hypochromasia 1+; Platelet Estimate Decreased
[2019-11-02] MEDS: INSULIN LISPRO 100 UNIT/ML SUBCUT SCH ×4 (05:43→23:34)
[2019-11-02] MEDS: PANTOPRAZOLE 40 MG VIAL IV SCH (08:23)
[2019-11-02] MEDS: SODIUM CHLORIDE 0.9% 1,000 ML IV SCH (08:23)
[2019-11-02 09:57] LABS: Hematocrit 23.4 VOL% (42.0-52.0); Hemoglobin 7.4 GM/DL (14.0-18.0)
[2019-11-02] MEDS: FUROSEMIDE 40 MG/4 ML VIAL IV SCH (15:26)
[2019-11-02] MEDS: ALBUMIN 25% 25 GM in PREMIX 1 EACH IV SCH (15:26)
[2019-11-02] MEDS: SPIRONOLACTONE 25 MG TABLET PO SCH (21:01)
[2019-11-03] MEDS: ALBUMIN 25% 25 GM in PREMIX 1 EACH IV SCH ×3 (02:24→20:59)
[2019-11-03 05:44] LABS: Basophils % 0.6 % (0.0-0.8); Eosinophils # 0.3 10*3/uL (0.0-0.87); Eosinophils % 9.3 % (0.00-10.9); Hematocrit 22.1 VOL% (42.0-52.0); Immature Granulocytes % 0.6 %; Immature Granulocytes Absolute 0.02 #; Lymphocytes # 1.3 10*3/uL (1.4-4.0); Lymphocytes % 37.9 % (21.2-54.2); Mean Corpuscular HGB Conc 31.7 GM/DL (32-36); Mean Corpuscular Volume 97.8 FL (87-102); Mean Platelet Volume 9.4 FL (9.6-12.0); Monocytes % 10.4 % (1.7-12.7); Neutrophils % 41.2 % (38.7-73.9); Platelet Count 75 T/CUMM (130-400); Red Blood Count 2.26 MC/CUMM (3.8-5.5); White Blood Count 3.4 T/CUMM (4-12)
[2019-11-03 05:50] LABS: INR 1.7; PT Patient Result 17.5 SECS (9.8-11.9)
[2019-11-03] MEDS: INSULIN LISPRO 100 UNIT/ML SUBCUT SCH ×3 (06:09→18:13)
[2019-11-03 06:10] LABS: Albumin 2.2 G/DL (3.4-5.0); Bilirubin,Total 2.6 MG/DL (0.2-1.0); Calcium 7.9 MG/DL (8.5-10.1); Osmolality,Calculated 284.1 MOS/KG (273-304); Total Protein 5.2 G/DL (6.4-8.3)
[2019-11-03 06:44] LABS: Anisocytosis 1+; Platelet Estimate Decreased
[2019-11-03 06:45] LABS: Macrocytosis 1+
[2019-11-03 06:46] LABS: Poikilocytosis Slight
[2019-11-03] MEDS: SPIRONOLACTONE 25 MG TABLET PO SCH (08:23)
[2019-11-03] MEDS: FUROSEMIDE 40 MG/4 ML VIAL IV SCH ×2 (08:25→22:00)
[2019-11-03] MEDS: PANTOPRAZOLE 40 MG VIAL IV SCH (08:25)
[2019-11-03] MEDS ORDERED: SODIUM CHLORIDE 0.9% 1,000 ML IV PRN (09:22)
[2019-11-03] MEDS: CITALOPRAM 20 MG TABLET PO SCH (10:32)
[2019-11-03 20:08] LABS: Hemoglobin 10.1 GM/DL (14.0-18.0)
[2019-11-03] MEDS: ONDANSETRON 4 MG/2 ML VIAL IV PRN (20:08)
[2019-11-03] MEDS: SPIRONOLACTONE 50 MG TABLET PO SCH (22:00)
[2019-11-04] MEDS: INSULIN LISPRO 100 UNIT/ML SUBCUT SCH ×4 (00:37→18:48)
[2019-11-04 06:06] LABS: Basophils % 0.6 % (0.0-0.8); Eosinophils # 0.2 10*3/uL (0.0-0.87); Eosinophils % 6.8 % (0.00-10.9); Hematocrit 28.2 VOL% (42.0-52.0); Hemoglobin 9.1 GM/DL (14.0-18.0); Lymphocytes # 1.1 10*3/uL (1.4-4.0); Lymphocytes % 34.6 % (21.2-54.2); Mean Corpuscular HGB Conc 32.3 GM/DL (32-36); Mean Corpuscular Volume 96.6 FL (87-102); Mean Platelet Volume 10.7 FL (9.6-12.0); Red Blood Count 2.92 MC/CUMM (3.8-5.5); Red Cell Distribution Width 15.7 % (9.3-17.3); White Blood Count 3.1 T/CUMM (4-12)
[2019-11-04 06:09] LABS: Platelet Count 31 T/CUMM (130-400)
[2019-11-04 06:14] LABS: INR 2.5; PT Patient Result 25.3 SECS (9.8-11.9)
[2019-11-04 06:30] LABS: Eosinophils 9 % (0-10); Lymphocytes 22 % (20-55); Platelet Estimate Decreased; Segmented Neutrophils 60 % (50-85); Total Cells Counted 100
[2019-11-04 06:31] LABS: Hypochromasia 1+; Microcytosis Slight; Ovalocytes Slight
[2019-11-04 06:48] LABS: Albumin 2.2 G/DL (3.4-5.0); Bilirubin,Total 3.8 MG/DL (0.2-1.0); Calcium 7.9 MG/DL (8.5-10.1); Osmolality,Calculated 285.1 MOS/KG (273-304); Total Protein 5.3 G/DL (6.4-8.3)
[2019-11-04] MEDS: ALBUMIN 25% 25 GM in PREMIX 1 EACH IV SCH ×2 (08:49→20:33)
[2019-11-04] MEDS: CITALOPRAM 20 MG TABLET PO SCH (08:50)
[2019-11-04] MEDS: FUROSEMIDE 40 MG/4 ML VIAL IV SCH ×2 (08:50→20:34)
[2019-11-04] MEDS: PANTOPRAZOLE 40 MG VIAL IV SCH (08:50)
[2019-11-04] MEDS: SPIRONOLACTONE 50 MG TABLET PO SCH ×2 (08:50→20:34)
[2019-11-04] MEDS: LACTULOSE 20 GM/30 ML UDCUP PO SCH ×2 (18:47→20:34)
[2019-11-04] MEDS: PANTOPRAZOLE 40 MG TABLET PO SCH (18:48)
[2019-11-04] MEDS: RIFAXIMIN 550 MG TABLET PO SCH ×2 (18:48→20:36)
[2019-11-04] MEDS: DESITIN 4OZ/NYSTATIN 15 GRAM MIXTURE PASTE TOP SCH ×2 (18:49→20:34)
[2019-11-05] MEDS: INSULIN LISPRO 100 UNIT/ML SUBCUT SCH ×4 (00:46→16:59)
[2019-11-05 06:38] LABS: Basophils % 0.1 % (0.0-0.8); Eosinophils % 0.1 % (0.00-10.9); Hemoglobin 10.5 GM/DL (14.0-18.0); Immature Granulocytes % 0.4 %; Immature Granulocytes Absolute 0.04 #; Lymphocytes # 1.2 10*3/uL (1.4-4.0); Lymphocytes % 12.3 % (21.2-54.2); Mean Corpuscular HGB Conc 31.8 GM/DL (32-36); Mean Corpuscular Volume 97.9 FL (87-102); Mean Platelet Volume 9.4 FL (9.6-12.0); Monocytes % 7.7 % (1.7-12.7); Neutrophils % 79.4 % (38.7-73.9); Platelet Count 144 T/CUMM (130-400); Red Blood Count 3.37 MC/CUMM (3.8-5.5); Red Cell Distribution Width 16.1 % (9.3-17.3); White Blood Count 9.4 T/CUMM (4-12)
[2019-11-05 07:00] LABS: Albumin 3.1 G/DL (3.4-5.0); Bilirubin,Total 4.6 MG/DL (0.2-1.0); Calcium 8.6 MG/DL (8.5-10.1); Osmolality,Calculated 289.1 MOS/KG (273-304); Total Protein 6.4 G/DL (6.4-8.3)
[2019-11-05] MEDS: ALBUMIN 25% 25 GM in PREMIX 1 EACH IV SCH (09:22)
[2019-11-05] MEDS: FUROSEMIDE 40 MG/4 ML VIAL IV SCH (09:22)
[2019-11-05] MEDS: RIFAXIMIN 550 MG TABLET PO SCH ×2 (09:23→21:57)
[2019-11-05] MEDS: CITALOPRAM 20 MG TABLET PO SCH (09:23)
[2019-11-05] MEDS: PANTOPRAZOLE 40 MG TABLET PO SCH ×2 (09:23→16:41)
[2019-11-05] MEDS: SPIRONOLACTONE 50 MG TABLET PO SCH (09:23)
[2019-11-05] MEDS: LACTULOSE 20 GM/30 ML UDCUP PO SCH ×2 (09:23→21:57)
[2019-11-05 11:31] LABS: INR 2.3
[2019-11-05 11:35] LABS: PT Patient Result 23.7 SECS (9.8-11.9)
[2019-11-05] MEDS: MIDODRINE 2.5 MG TABLET PO SCH ×2 (15:19→21:57)
[2019-11-05] MEDS: DESITIN 4OZ/NYSTATIN 15 GRAM MIXTURE PASTE TOP SCH ×2 (15:20→21:57)
[2019-11-06] MEDS: INSULIN LISPRO 100 UNIT/ML SUBCUT SCH ×5 (00:18→23:50)
[2019-11-06 05:17] LABS: INR 3.2; PT Patient Result 32.4 SECS (9.8-11.9)
[2019-11-06 08:15] LABS: Basophils % 0.2 % (0.0-0.8); Hemoglobin 8.7 GM/DL (14.0-18.0); Immature Granulocytes % 0.5 %; Immature Granulocytes Absolute 0.02 #; Lymphocytes # 0.7 10*3/uL (1.4-4.0); Lymphocytes % 17.3 % (21.2-54.2); Mean Corpuscular HGB Conc 32.2 GM/DL (32-36); Mean Corpuscular Volume 97.8 FL (87-102); Mean Platelet Volume 10.2 FL (9.6-12.0); Monocytes % 9.7 % (1.7-12.7); Neutrophils % 72.3 % (38.7-73.9); Red Blood Count 2.76 MC/CUMM (3.8-5.5); Red Cell Distribution Width 16.2 % (9.3-17.3); White Blood Count 4.2 T/CUMM (4-12)
[2019-11-06 08:16] LABS: Platelet Count 66 T/CUMM (130-400)
[2019-11-06 08:29] LABS: Hypochromasia 1+; Microcytosis Slight; Ovalocytes Slight; Platelet Estimate Decreased
[2019-11-06] MEDS: MIDODRINE 2.5 MG TABLET PO SCH ×3 (08:38→21:25)
[2019-11-06] MEDS: PANTOPRAZOLE 40 MG TABLET PO SCH ×2 (08:38→16:35)
[2019-11-06] MEDS: CITALOPRAM 20 MG TABLET PO SCH (08:39)
[2019-11-06] MEDS: LACTULOSE 20 GM/30 ML UDCUP PO SCH ×2 (08:39→21:26)
[2019-11-06] MEDS: DESITIN 4OZ/NYSTATIN 15 GRAM MIXTURE PASTE TOP SCH ×2 (08:39→21:26)
[2019-11-06] MEDS: RIFAXIMIN 550 MG TABLET PO SCH ×2 (08:39→21:25)
[2019-11-06] MEDS: FUROSEMIDE 40 MG TABLET PO SCH (08:39)
[2019-11-06 09:14] LABS: Albumin 2.8 G/DL (3.4-5.0); Calcium 8.4 MG/DL (8.5-10.1); Osmolality,Calculated 289.3 MOS/KG (273-304); Total Protein 5.9 G/DL (6.4-8.3)
[2019-11-06] MEDS: ONDANSETRON 4 MG/2 ML VIAL IV PRN (17:12)
[2019-11-06] MEDS ORDERED: ZALEPLON 5 MG CAPSULE PO PRN (20:34)
[2019-11-07] MEDS: INSULIN LISPRO 100 UNIT/ML SUBCUT SCH ×3 (06:31→18:37)
[2019-11-07] MEDS: RIFAXIMIN 550 MG TABLET PO SCH ×2 (09:03→22:52)
[2019-11-07] MEDS: LACTULOSE 20 GM/30 ML UDCUP PO SCH ×2 (09:03→22:51)
[2019-11-07] MEDS: PANTOPRAZOLE 40 MG TABLET PO SCH ×2 (09:04→16:55)
[2019-11-07] MEDS: MIDODRINE 2.5 MG TABLET PO SCH ×3 (09:04→22:51)
[2019-11-07] MEDS: DESITIN 4OZ/NYSTATIN 15 GRAM MIXTURE PASTE TOP SCH ×2 (09:04→20:00)
[2019-11-07] MEDS: CITALOPRAM 20 MG TABLET PO SCH (09:04)
[2019-11-07] MEDS: FUROSEMIDE 40 MG TABLET PO SCH (09:04)
[2019-11-07 10:41] LABS: Basophils % 0.1 % (0.0-0.8); Eosinophils % 0.1 % (0.00-10.9); Hematocrit 32.9 VOL% (42.0-52.0); Hemoglobin 10.4 GM/DL (14.0-18.0); Immature Granulocytes % 0.4 %; Immature Granulocytes Absolute 0.03 #; Lymphocytes % 13.5 % (21.2-54.2); Mean Corpuscular HGB Conc 31.6 GM/DL (32-36); Mean Corpuscular Volume 99.1 FL (87-102); Mean Platelet Volume 9.9 FL (9.6-12.0); Monocytes % 8.4 % (1.7-12.7); Neutrophils % 77.5 % (38.7-73.9); Platelet Count 109 T/CUMM (130-400); Red Blood Count 3.32 MC/CUMM (3.8-5.5); Red Cell Distribution Width 16.6 % (9.3-17.3); White Blood Count 7.5 T/CUMM (4-12)
[2019-11-07 10:50] LABS: INR 3.4; PT Patient Result 34.3 SECS (9.8-11.9)
[2019-11-07 11:00] LABS: Bilirubin,Total 3.7 MG/DL (0.2-1.0); Calcium 8.6 MG/DL (8.5-10.1); Osmolality,Calculated 290.4 MOS/KG (273-304); Total Protein 6.2 G/DL (6.4-8.3)
[2019-11-07] MEDS ORDERED: ATROPINE 1 % OPH SOLN 5 ML BOTTLE SL PRN (22:19)
[2019-11-08] MEDS: INSULIN LISPRO 100 UNIT/ML SUBCUT SCH ×4 (01:46→17:30)
[2019-11-08] MEDS: CITALOPRAM 20 MG TABLET PO SCH (08:35)
[2019-11-08] MEDS: PANTOPRAZOLE 40 MG TABLET PO SCH (08:35)
[2019-11-08] MEDS: LACTULOSE 20 GM/30 ML UDCUP PO SCH (08:35)
[2019-11-08] MEDS: MIDODRINE 2.5 MG TABLET PO SCH (08:38)
[2019-11-08] MEDS: FUROSEMIDE 40 MG TABLET PO SCH (08:38)
[2019-11-08] MEDS: RIFAXIMIN 550 MG TABLET PO SCH (08:39)
[2019-11-08] MEDS: DESITIN 4OZ/NYSTATIN 15 GRAM MIXTURE PASTE TOP SCH (08:39)
[2019-11-08] MEDS ORDERED: MORPHINE 4 MG/1 ML VIAL IV PRN (10:43)
[2019-11-08] MEDS: ALBUTEROL/IPRATROPIUM 3 ML NEB RESP TX SCH ×2 (12:21→14:18)
[2019-11-08 16:48] VITALS: BP 90/52
== END 2019-11-08 17:54 | disposition hospice, home (50) | DRG 441 ==
LOC: EDUNIT# → EDBD → N.ED 16:03 → SUATTDRO 17:48 → N.EDINP 17:48 → N.3E 18:56
PROVIDERS: ADMIT Family Medicine; ATTEND Internal Medicine
PROC: IRTHORA (2019-11-05 12:40)